=== PATIENT | female | born 1945 | race Caucasian/White ===

== ENCOUNTER → 2020-08-29 14:36 | Outpatient (BNVA) | payer MEDICARE, SELFPAY | PROVIDERS: PCP Internal Medicine; Visit Provider Internal Medicine Cardiovascular Disease | DX: I25.10 Atherosclerotic heart disease of native coronary artery without angina pectoris (principal); I10 Essential (primary) hypertension | CPT/HCPCS: 99212 ==

== ENCOUNTER 2021-09-17 15:21 | Inpatient (IN) | payer MEDICARE, SELFPAY ==
--- NOTE | ~2021-09-17 | FL_ITS ---
EXAMINATION: XR FLUOROSCOPY WITH IMAGES CLINICAL INFORMATION: Right hip fracture COMPARISON: Radiographs right hip 09/17/2021 TECHNIQUE: Fluoroscopy performed by Dr. Moisés Aleman. Fluoroscopy time: 0.6 minutes DAP: 0.474 Gycm2 Images: 4 FINDINGS: Intertrochanteric fracture is reduced with gamma canal and intramedullary [place]. The hardware is intact. Fracture fragments are in near-anatomic alignment. No dislocation or destructive process. FL/FL guidance in OR IMPRESSION: Status post reduction. Hardware intact.
--- NOTE | ~2021-09-17 | XR_ITS ---
EXAMINATION: XR HIP, RIGHT CLINICAL INFORMATION: Fall. Pain. COMPARISON: None TECHNIQUE: Frontal view of pelvis. Two views of the right hip. FINDINGS: Oblique mildly displaced intratrochanteric fracture of the right proximal femur. No fracture of the pelvis. Left hip is intact. XR/XR hip RT w [id number] IMPRESSION: Intratrochanteric fracture right hip.
--- NOTE | ~2021-09-17 | XR_ITS ---
EXAMINATION: XR CHEST CLINICAL INFORMATION: Fall. COMPARISON: None TECHNIQUE: Frontal view of the chest was obtained. 4:40 PM FINDINGS: No significant abnormality is noted involving the heart, lungs, mediastinum, bony thorax or soft tissues. XR/XR chest 1V IMPRESSION: Unremarkable examination.
--- NOTE | 2021-09-17 15:37 | ED.FALL ---
HPI - Fall General Chief Complaint: Fall Stated Complaint: R LEG/HIP INJURY Time Seen by Provider: 09/17/21 15:36 Source: patient and EMS Mode of arrival: EMS Limitations: no limitations History of Present Illness HPI Narrative: 75-year-old female with history of CAD, HTN, HLD, angina who presents to the ER via EMS from home with right hip pain after she fell. Patient reports she was moving a heavy dresser with a large Andrzej on the top and it was top heavy when she went to move it it came down almost on top of her and she fell onto her right hip. She had intense pain immediately and was unable to get up. She denies hitting her head or losing consciousness. Her daughter heard her fall and ran upstairs intended to her. EMS was called. Patient was in excruciating pain and shaking. She was given intravenous fentanyl 100 mcg and brought to the ER for further evaluation. MD complaint: fall Onset (ago): minute(s) Fall from: standing Fall witnessed: no Place fall occurred: home Loss of consciousness: none Prolonged down time: no Symptoms prior to fall: none Context: tripped/slipped Location of injury: pelvis ( Right hip) Severity: severe Severity scale (1-10): 10 Quality: sharp and aching Associated symptoms (after fall): denies Related Data Home Medications Medication Instructions Recorded Confirmed aspirin 81 mg tablet,delayed 81 mg PO DAILY 08/29/20 08/29/20 release (Adult Low Dose Aspirin) calcium 600 mg-D3 800 unit-mag11 1 tab PO BEDTIME 08/29/20 08/29/20 50 hw-minz-uwihpw-gabi-s.borat tablet (Caltrate 600-D Plus Minerals) lisinopril 20 1 tab PO DAILY 08/29/20 08/29/20 mg-hydrochlorothiazide 12.5 mg tablet amlodipine 5 mg tablet 1 tab PO DAILY 09/17/21 atorvastatin 40 mg tablet 1 tab PO DAILY 09/17/21 famotidine 40 mg tablet 1 tab PO DAILY 09/17/21 Previous Rx's Medication Instructions Recorded metoprolol succinate 50 mg 50 mg PO DAILY #90 cap 10/04/20 tablet,extended release 24 hr isosorbide mononitrate 60 mg 90 mg PO DAILY #135 cap 01/09/21 tablet,extended release 24 hr Allergies Allergy/AdvReac Type Severity Reaction Status Date / Time codeine [CODEINE] Allergy Intermediate RASH Verified 09/17/21 16:08 Review of Systems Review of Systems: Constitutional: No Fever, No Chills ENT/Mouth: No sore throat, No Rhinorrhea Cardiovascular: No Chest Pain, No SOB Respiratory: No Cough, No Sputum Gastrointestinal: No Nausea, No Vomiting, No Diarrhea, No abdominal Pain Genitourinary: No Dysuria, No Urinary Frequency, No Hematuria Musculoskeletal: + joint pain, No Myalgias Skin: No Skin Lesions, No rash Neuro: No Weakness, No Numbness, No Dizziness, No Headache Psych: + Anxiety/Panic, No Depression Heme/Lymph: No Bruising, No Lymphadenopathy Endocrine: No Polyuria, No Polydipsia [facility] Past Medical History Medical History (Updated 09/17/21 @ 19:24 by KATELYNN Yarbrough) CAD (coronary artery disease) HTN (hypertension) Hyperlipidemia Surgical History (Updated 08/29/20 @ 14:30 by PEDRO PABLO Jo) Hx of cardiac cath (~2013) Hx of cholecystectomy Hx of hysterectomy Family History Family History (Updated 08/29/20 @ 14:32 by PEDRO PABLO Jo) Father Cancer Mother CHF (congestive heart failure) Social History Social History (Updated 08/29/20 @ 15:03 by PEDRO PABLO Jo) Advance Directives: No Advance Directives Information Provided: Yes Physical Exam Vital Signs: Vital Signs: Last Vital Signs Temp 98 F 09/17/21 15:48 Pulse 92 09/17/21 18:13 Resp 18 09/17/21 18:13 BP 116/53 L 09/17/21 18:13 Pulse Ox 97 09/17/21 18:13 BMI result Body Mass Index 36.0 Appearance: Alert. Oriented X3. Appears uncomfortable, restless and stroking her lateral right thigh. Eyes: Pupils equal, round and reactive to light. ENT: Pharynx normal. Neck: Normal inspection. Neck supple. CVS: Normal heart rate and rhythm. Pulses normal. Respiratory: No respiratory distress. Breath sounds normal. Abdomen: Obese, soft and nontender. +BS x4 Skin: Skin warm and dry. Normal skin color. Normal skin turgor. No rashes. Extremities: right leg is slightly shortened and externally rotated. Tender throughout the entire right hip and lateral proximal femur. neurovascularly intact distally leg warm and well perfused. Neuro: Oriented X 3. No motor deficit. No sensory deficit. Course Course Course Narrative: 75-year-old female With history of HTN, CAD, HLD, angina who presents to the ER with a mechanical fall today at home falling onto her right side, presenting with severe hip pain. Exam is concerning for a hip fracture. Her pain is improved after some IV fentanyl given by EMS. Will give additional IV Dilaudid and her who obtain x-ray of the hip. Lab workup, EKG, COVID test and med rec ordered in anticipation of admission. Reevaluation(s) Reevaluation #1: 5:55pm: x-ray showing a right-sided intertrochanteric hip fracture. Orthopedics consulted who is recommending medicine admission given age Discussed results of the x-ray with the patient and daughter at the bedside. Patient needs to urinate, will place Ingram catheter. Patient also reporting some neck tightness which is usually how her angina is started. She is asking to have nitro ready in case it moved to her chest. EKG and troponin are pending. She currently denies any chest pain. She reports severe pain in the right hip with minimal improvement after IV Dilaudid. Will repeat does of IV Dilaudid and reassess. Reevaluation #2: 7:05 pm - Troponin is less than 3.5. EKG without any ischemic changes. Pain improved after IV Dilaudid. Urinalysis returned with evidence of infection, +LE, +WBC 15-29. Patient denies any dysuria, urinary frequency urgency. But she does report some new lower back discomfort. She has no fevers or leukocytosis. No evidence of sepsis at this time. Will treat with IV Rocephin for now until urine culture is performed. Plan to admit to the hospitalist service with ortho consult. Ortho recommending NPO status after midnight for possible surgical intervention tomorrow. Consultations Consultation #1: Orthopedics - Rupinder Marley PA-C MDM - Fall Medical Records Attestation: I reviewed the patient's medical records. Lab Data Attestation: I reviewed the patient's lab results. Result diagrams: 09/17/21 16:22 09/17/21 16:22 Labs: Lab Results 01/16/22 01/16/22 01/16/22 Range/Units 16:22 16:22 16:22 WBC 10.6 (4.8-10.8) X10*3/uL RBC 4.22 (4.20-5.50) X10*6/uL Hgb 12.5 (12.0-16.0) g/dl Hct 37.6 (37.0-47.0) % MCV 89.1 (80.0-98.0) fL MCH 29.6 (27.0-33.0) pg MCHC 33.2 (31.0-35.0) g/dl RDW 12.6 (11.0-16.0) % Plt Count 282 (160-400) X10*3/uL MPV 9.1 L (9.4-12.3) fL Immature Gran % (Auto) 0.6 H (0.0-0.4) % Neut % (Auto) 76.8 H (45-73) % Lymph % (Auto) 13.7 L (20-40) % [place] % (Auto) 8.0 (2-11) % Eos % (Auto) 0.5 (0-4) % Baso % (Auto) 0.4 (0-2) % Lymph # (Auto) 1.5 (1.2-4.9) X10*3/uL [place] # (Auto) 0.9 (0.1-1.2) X10*3/uL Eos # (Auto) 0.1 (0.0-0.4) X10*3/uL Baso # (Auto) 0.0 (0.0-0.2) X10*3/uL Abs Immat Gran (auto) 0.06 H (0.00-0.03) X10*3/uL Absolute Neuts (auto) 8.2 (2.0-8.3) x10*3/uL Absolute Nucleated RBC 0.000 (0.0-0.012) X10*3/uL Nucleated RBC % (auto) 0.0 (0.0-0.2) /100WBC PT 12.1 (9.9-13.0) SEC INR 1.1 (0.9-1.1) APTT 31.9 (24.1-38.0) SEC Sodium 138 (135-145) mmol/L Potassium 4.3 (3.3-5.1) mmol/L Chloride 105 (96-108) mmol/L Carbon Dioxide 23 (22-29) mmol/L Anion Gap 14 (12-20) BUN 22 H (9-16) mg/dL Creatinine 0.90 (0.5-1.4) mg/dL Estim Creat Clear Calc 67.1 Estimated GFR > 60 Random Glucose 119 H (60-115) mg/dL Calcium 9.3 (8.4-10.2) mg/dL Magnesium 2.2 (1.6-2.6) mg/dL Total Bilirubin 0.4 (0.0-1.0) mg/dL Direct Bilirubin 0.2 (0.0-0.5) mg/dL AST 25 (5-31) U/L ALT 24 (0-31) U/L Alkaline Phosphatase 91 (39-117) U/L Troponin I High Sens (<3.5-17.0) ng/L Total Protein 6.5 (6.5-8.0) g/dL Albumin 3.8 (3.5-5.0) g/dL Urine Color Urine Appearance Urine pH (5.0-8.0) Ur Specific [place] (1.005-1.025) Urine Protein (NEG-TRACE) MG/DL Urine Glucose (UA) (NEG) MG/DL Urine Ketones (NEG) MG/DL Urine Blood (NEG) Urine Nitrite (NEG) Ur Leukocyte Esterase (NEG) Urine RBC (0) /HPF Urine WBC (0-4) /HPF Ur Squamous Epith Cells /LPF Urine Bacteria /LPF COVID-19 (FABIOLA) (Negative) COVID-19 Clin Com 09/17/21 09/17/21 09/17/21 Range/Units 16:22 16:22 18:43 WBC (4.8-10.8) X10*3/uL RBC (4.20-5.50) X10*6/uL Hgb (12.0-16.0) g/dl Hct (37.0-47.0) % MCV (80.0-98.0) fL MCH (27.0-33.0) pg MCHC (31.0-35.0) g/dl RDW (11.0-16.0) % Plt Count (160-400) X10*3/uL MPV (9.4-12.3) fL Immature Gran % (Auto) (0.0-0.4) % Neut % (Auto) (45-73) % Lymph % (Auto) (20-40) % [place] % (Auto) (2-11) % Eos % (Auto) (0-4) % Baso % (Auto) (0-2) % Lymph # (Auto) (1.2-4.9) X10*3/uL [place] # (Auto) (0.1-1.2) X10*3/uL Eos # (Auto) (0.0-0.4) X10*3/uL Baso # (Auto) (0.0-0.2) X10*3/uL Abs Immat Gran (auto) (0.00-0.03) X10*3/uL Absolute Neuts (auto) (2.0-8.3) x10*3/uL Absolute Nucleated RBC (0.0-0.012) X10*3/uL Nucleated RBC % (auto) (0.0-0.2) /100WBC PT (9.9-13.0) SEC INR (0.9-1.1) APTT (24.1-38.0) SEC Sodium (135-145) mmol/L Potassium (3.3-5.1) mmol/L Chloride (96-108) mmol/L Carbon Dioxide (22-29) mmol/L Anion Gap (12-20) BUN (9-16) mg/dL Creatinine (0.5-1.4) mg/dL Estim Creat Clear Calc Estimated GFR Random Glucose (60-115) mg/dL Calcium (8.4-10.2) mg/dL Magnesium (1.6-2.6) mg/dL Total Bilirubin (0.0-1.0) mg/dL Direct Bilirubin (0.0-0.5) mg/dL AST (5-31) U/L ALT (0-31) U/L Alkaline Phosphatase (39-117) U/L Troponin I High Sens < 3.5 (<3.5-17.0) ng/L Total Protein (6.5-8.0) g/dL Albumin (3.5-5.0) g/dL Urine Color YELLOW Urine Appearance CLEAR Urine pH 6.0 (5.0-8.0) Ur Specific [place] 1.025 (1.005-1.025) Urine Protein NEG (NEG-TRACE) MG/DL Urine Glucose (UA) NEG (NEG) MG/DL Urine Ketones NEG (NEG) MG/DL Urine Blood NEG (NEG) Urine Nitrite POS H (NEG) Ur Leukocyte Esterase 1+ H (NEG) Urine RBC 5-9 H (0) /HPF Urine WBC 15-29 H (0-4) /HPF Ur Squamous Epith Cells TRACE /LPF Urine Bacteria 3+ /LPF COVID-19 (FABIOLA) Negative (Negative) COVID-19 Clin Com See Note ECG Data Attestation: I personally reviewed and interpreted this ECG as follows: ECG interpretation date: 09/17/21 ECG interpretation time: 19:23 Interpretation: Normal sinus rhythm, heart rate 90 beats per minute, normal [place] interval, normal QTC, no ST segment elevations or depressions. Critical Care Time Critical Care Time Critical Care Time: Yes Total Critical Care Time: 41 Attestation: I have personally provided critical care time exclusive of time spent on separately billable procedures. Time includes review of lab data, radiology results, discussion with consultants/hospitalist, frequent bedside reassessments due to requiring multiple doses of IV narcotics and monitoring for potential decompensation. Intervention performed as documented. Discharge Plan Discharge Clinical Impression: Closed fracture of right hip, Acute UTI Patient Disposition: Admitted As Inpatient
--- NOTE | 2021-09-17 15:38 | ECG_ITS ---
Test Reason : fall Blood Pressure : / mmHG Vent. Rate : 090 BPM Atrial Rate : 090 BPM P-R Int : 180 ms QRS Dur : 088 ms QT Int : 366 ms P-R-T Axes : 061 -05 017 degrees QTc Int : 447 ms Normal sinus rhythm Possible Inferior infarct (cited on or before 23-JUN-2007) Anterior infarct , age undetermined Abnormal ECG When compared with ECG of 23-JUN-2007 15:30, No significant change was found Referred By: Shana Harden Electronically Signed By:Olayinka Colunga
[2021-09-17 15:48] VITALS: BP 133/68; BP 170/94; PULSE 80; RESP 18; TEMP 36.6; O2SAT 100; O2SAT 97; BMI 36.0
[2021-09-17] MEDS: HYDROmorphone HCl 0.5 MG/0.5 ML SYRINGE IVPUSH (16:09)
[2021-09-17 16:27] LABS: MANUAL DIFF FLAG NO
[2021-09-17 16:31] LABS: Basophils Percent Auto 0.4 % (0-2); Eosinophils Absolute Auto 0.1 X10*3/uL (0.0-0.4); Eosinophils Percent Auto 0.5 % (0-4); Hematocrit 37.6 % (37.0-47.0); Hemoglobin 12.5 g/dl (12.0-16.0); Imm Gran Abs Auto 0.06 X10*3/uL (0.00-0.03); Imm Gran Pct Auto 0.6 % (0.0-0.4); Lymphocytes Absolute Auto 1.5 X10*3/uL (1.2-4.9); Lymphocytes Percent Auto 13.7 % (20-40); Mean Corpuscular HGB Conc 33.2 g/dl (31.0-35.0); Mean Corpuscular Hemoglobin 29.6 pg (27.0-33.0); Mean Corpuscular Volume 89.1 fL (80.0-98.0); Mean Platelet Volume 9.1 fL (9.4-12.3); Monocytes Absolute Auto 0.9 X10*3/uL (0.1-1.2); Neutrophils Absolute Auto 8.2 x10*3/uL (2.0-8.3); Neutrophils Percent Auto 76.8 % (45-73); Platelet Count 282 X10*3/uL (160-400); Red Blood Count 4.22 X10*6/uL (4.20-5.50); Red Cell Distribution Width 12.6 % (11.0-16.0); White Blood Count 10.6 X10*3/uL (4.8-10.8)
[2021-09-17 16:37] LABS: INTERNATIONAL NORM RATIO 1.1 (0.9-1.1); Prothrombin Time 12.1 SEC (9.9-13.0)
[2021-09-17 16:39] LABS: Partial Thromboplastin Time 31.9 SEC (24.1-38.0)
[2021-09-17 16:47] LABS: COVID-19 Test Negative (Negative)
[2021-09-17 16:54] LABS: Alanine Aminotransferase 24 U/L (0-31); Albumin Level 3.8 g/dL (3.5-5.0); Alkaline Phosphatase 91 U/L (39-117); Anion Gap 14 (12-20); Aspartate Amino Transferase 25 U/L (5-31); Bilirubin Direct 0.2 mg/dL (0.0-0.5); Bilirubin Total 0.4 mg/dL (0.0-1.0); Blood Urea Nitrogen 22 mg/dL (9-16); Calcium 9.3 mg/dL (8.4-10.2); Carbon Dioxide 23 mmol/L (22-29); Chloride 105 mmol/L (96-108); Creatinine Clr Calc Pharmacy 67.1; Estimated Glomerular Filt Rate > 60; Glucose Random 119 mg/dL (60-115); Magnesium 2.2 mg/dL (1.6-2.6); Potassium 4.3 mmol/L (3.3-5.1); Sodium 138 mmol/L (135-145); Total Protein 6.5 g/dL (6.5-8.0)
[2021-09-17 18:10] LABS: Troponin-I High Sensitivity < 3.5 ng/L (<3.5-17.0)
[2021-09-17] MEDS: HYDROmorphone HCl 1 MG/ML SYRINGE IVPUSH (18:11)
[2021-09-17 18:13] VITALS: BP 116/53; PULSE 92; RESP 18; O2SAT 97
[2021-09-17 18:54] LABS: Appearance Urine CLEAR; Color Urine YELLOW; Glucose Urine UA NEG (NEG); Leukocyte Esterase Urine 1+ (NEG); Nitrite Urine POS (NEG); Specific Gravity - Urine 1.025 (1.005-1.025); UACC Culture Trigger YES; Urine Blood NEG (NEG); Urine Ketones NEG (NEG); Urine Protein NEG (NEG-TRACE)
[2021-09-17 19:07] LABS: Bacteria Urine 3+ /LPF; Squamous Epithelial Cell Urine TRACE /LPF
[2021-09-17 20:11] VITALS: BP 138/78; PULSE 93; RESP 16; TEMP 36.9; O2SAT 95
--- NOTE | 2021-09-17 20:43 | PHA.MEDREC ---
Pharmacy Consult ? Medication Reconciliation Pharmacy has completed the medication reconciliation.
[2021-09-17 20:50] LABS: Lactic Acid 1.3 mmol/L (0.5-2.0)
[2021-09-17] MEDS: cefTRIAXone sodium 1 GM in 0.9 % Sodium Chloride 50 ML IV (20:53)
--- NOTE | 2021-09-17 21:23 | PM.IMHP ---
History of Present Illness Date of Service: 09/17/21 Chief Complaint: Hip fracture 75-year-old female with past medical history of CAD, hypertension, hyperlipidemia who presents the hospital after injuring her right hip found to have right hip fracture. Patient reports that she was moving a dresser in her room when the dresser fell on her, she fell to the floor and hurt her right hip. Patient immediately felt significant pain and called EMS and was brought into the hospital. Patient reports that she was in her regular state of health with no complaints including no chest pain, no shortness of breath, no headache or change in vision, no abdominal pain nausea or vomiting, no diarrhea constipation, no urinary symptoms including no urgency or frequency,and no lower extremity edema. On arrival to the ED patient hemodynamically was stable with no significant abnormal vitals labs remarkable for positive UA with leukocyte Estrace and WBC as well as nitrites, COVID-19 negative hip pelvic x-ray showed intratrochanteric fracture of the right hip Review of Systems Review of Systems: Yes all other systems are reviewed and are negative [facility] Medical History CAD (coronary artery disease) HTN (hypertension) Hyperlipidemia Family History Father Cancer Mother CHF (congestive heart failure) Surgical History Hx of cardiac cath (~2013) Hx of cholecystectomy Hx of hysterectomy Social History Patient Tobacco Use Status: Never used Tobacco Smoked in Last 30 Days: No Use of substances other than those prescribed or required for medical reasons: No Advance Directives: No Advance Directives Information Provided: Yes Meds Allergies Allergy/AdvReac Type Severity Reaction Status Date / Time codeine [CODEINE] Allergy Intermediate RASH Verified 09/17/21 16:08 Active Medications: Current Medications Pharmacy Consult (Consult Rx Perform Med Rec) 1 each MISCELLANE ONCE PRN PRN Reason: Consult order Home Medications Medication Instructions Recorded Confirmed Last Taken Type aspirin 81 mg tablet,delayed 81 mg PO DAILY 08/29/20 09/17/21 09/16/21 History release (Adult Low Dose Aspirin) calcium 600 mg-D3 800 unit-mag11 1 tab PO DAILY 08/29/20 09/17/21 09/17/21 History 50 mn-tmct-mhpbqy-gabi-s.borat tablet (Caltrate 600-D Plus Minerals) lisinopril 20 1 tab PO DAILY 08/29/20 09/17/21 09/17/21 History mg-hydrochlorothiazide 12.5 mg tablet amlodipine 5 mg tablet 1 tab PO DAILY 09/17/21 09/17/21 09/17/21 History famotidine 40 mg tablet 1 tab PO DAILY 09/17/21 09/17/21 09/17/21 History simvastatin 20 mg tablet 1 tab PO BEDTIME 09/17/21 09/17/21 09/16/21 History Physical Exam Vital Signs and Narrative: Vital Signs: Last Vital Signs Temp 98.5 F 09/17/21 20:11 Pulse 93 09/17/21 20:11 Resp 16 09/17/21 20:11 BP 138/78 09/17/21 20:11 Pulse Ox 95 09/17/21 20:11 BMI result Body Mass Index 36.0 Const: General: cooperative and no acute distress Orientation/consciousness: patient oriented x3 Eyes: General: appearance normal, both eyes and all related structures Pupils: Equal, round and reactive pupils present Resp: Effort & Inspection: normal respiratory effort Auscultation: clear to auscultation bilaterally Cardio: Rate: regular rate Rhythm: regular rhythm GI: Palpation (GI): Soft to palpation Auscultation: normal bowel sounds Skin: General skin exam: no rashes or lesions noted Neuro: General: patient oriented x3 Cranial nerves: Yes Equal, round and reactive pupils present Cognition (Neuro): normal cognition Extrem: Other: right hip bruising, externally rotated and severely tender and edmatous General: Yes no pedal edema Results Labs CBC and Chem 7: 09/17/21 16:22 09/17/21 16:22 Labs: Laboratory Results - last 24 hr 09/17/21 09/17/21 09/17/21 16: 16: 16:22 MCV 89.1 MCH 29.6 MCHC 33.2 RDW 12.6 Plt Count 282 MPV 9.1 L Immature Gran % (Auto) 0.6 H Neut % (Auto) 76.8 H Lymph % (Auto) 13.7 L [place] % (Auto) 8.0 Eos % (Auto) 0.5 Baso % (Auto) 0.4 Lymph # (Auto) 1.5 [place] # (Auto) 0.9 Eos # (Auto) 0.1 Baso # (Auto) 0.0 Abs Immat Gran (auto) 0.06 H Absolute Neuts (auto) 8.2 Absolute Nucleated RBC 0.000 Nucleated RBC % (auto) 0.0 PT 12.1 INR 1.1 APTT 31.9 Anion Gap 14 Estim Creat Clear Calc 67.1 Estimated GFR > 60 Random Glucose 119 H Lactic Acid Calcium 9.3 Magnesium 2.2 Total Bilirubin 0.4 Direct Bilirubin 0.2 AST 25 ALT 24 Alkaline Phosphatase 91 Troponin I High Sens Total Protein 6.5 Albumin 3.8 Urine Color Urine Appearance Urine pH Ur Specific [place] Urine Protein Urine Glucose (UA) Urine Ketones Urine Blood Urine Nitrite Ur Leukocyte Esterase Urine RBC Urine WBC Ur Squamous Epith Cells Urine Bacteria COVID-19 (FABIOLA) COVID-19 Clin Com 09/17/21 09/17/21 09/17/21 16:22 16:22 18:43 MCV MCH MCHC RDW Plt Count MPV Immature Gran % (Auto) Neut % (Auto) Lymph % (Auto) [place] % (Auto) Eos % (Auto) Baso % (Auto) Lymph # (Auto) [place] # (Auto) Eos # (Auto) Baso # (Auto) Abs Immat Gran (auto) Absolute Neuts (auto) Absolute Nucleated RBC Nucleated RBC % (auto) PT INR APTT Anion Gap Estim Creat Clear Calc Estimated GFR Random Glucose Lactic Acid Calcium Magnesium Total Bilirubin Direct Bilirubin AST ALT Alkaline Phosphatase Troponin I High Sens < 3.5 Total Protein Albumin Urine Color YELLOW Urine Appearance CLEAR Urine pH 6.0 Ur Specific [place] 1.025 Urine Protein NEG Urine Glucose (UA) NEG Urine Ketones NEG Urine Blood NEG Urine Nitrite POS H Ur Leukocyte Esterase 1+ H Urine RBC 5-9 H Urine WBC 15-29 H Ur Squamous Epith Cells TRACE Urine Bacteria 3+ COVID-19 (FABIOLA) Negative COVID-19 Clin Com See Note 09/17/21 20:32 MCV MCH MCHC RDW Plt Count MPV Immature Gran % (Auto) Neut % (Auto) Lymph % (Auto) [place] % (Auto) Eos % (Auto) Baso % (Auto) Lymph # (Auto) [place] # (Auto) Eos # (Auto) Baso # (Auto) Abs Immat Gran (auto) Absolute Neuts (auto) Absolute Nucleated RBC Nucleated RBC % (auto) PT INR APTT Anion Gap Estim Creat Clear Calc Estimated GFR Random Glucose Lactic Acid 1.3 Calcium Magnesium Total Bilirubin Direct Bilirubin AST ALT Alkaline Phosphatase Troponin I High Sens Total Protein Albumin Urine Color Urine Appearance Urine pH Ur Specific [place] Urine Protein Urine Glucose (UA) Urine Ketones Urine Blood Urine Nitrite Ur Leukocyte Esterase Urine RBC Urine WBC Ur Squamous Epith Cells Urine Bacteria COVID-19 (FABIOLA) COVID-19 Clin Com Imaging Radiologist's Impressions: Impressions Chest X-Ray 09/17/21 16:48 IMPRESSION: Unremarkable examination. Hip/Pelvis X-Ray 09/17/21 16:48 IMPRESSION: Intratrochanteric fracture right hip. Assessment and Plan (1) Closed fracture of right hip: Qualifiers: Encounter type: initial encounter Qualified Code(s): S72.001A - Fracture of unspecified part of neck of right femur, initial encounter for closed fracture Status: Acute (2) Acute UTI: Status: Acute 75-year-old female with past medical history of CAD as well as hypertension presents to the hospital after a fall found to have right hip fracture # right hip fracture - secondary to mechanical fall - orthopedic service is consulted - pain controlled # acute UTI - asymptomatic - but given surgical intervention will treat with IV antibiotics - follow cultures # history of coronary artery disease - continue metoprolol # hypertension - stable, will continue home medications # hyperlipidemia - will continue statin DVT prophylaxis: SCDs in anticipation of surgical Quality Stroke Does the patient have a stroke diagnosis?: No VTE Prior VTE?: No VTE Risk Level:: Medical - moderate - high VTE Device Contraindication: Treatment Not Indicated VTE Drug Contraindication: N/A - Med Ordered
[2021-09-17] MEDS: Morphine Sulfate 4 MG/ML CARTRIDGE IVPUSH (21:34)
[2021-09-18] VITALS (15 sets, daily range): BP systolic 111–129; BP diastolic 62–80; PULSE 80–104; RESP 11–18; TEMP 36.3–37.6; O2SAT 90–100
[2021-09-18] MEDS: Morphine Sulfate 4 MG/ML CARTRIDGE IVPUSH (01:43)
[2021-09-18] MEDS: HYDROmorphone HCl 1 MG/ML SYRINGE IVPUSH ×5 (03:43→22:22)
--- NOTE | 2021-09-18 04:40 | PC.NURSE ---
pt a&o, no sob or chest pain. pt reposition for comfort. Medicated per Oct. CMS pt lower extremities.
--- NOTE | 2021-09-18 04:42 | PC.NURSE ---
pt is Npo at this time.
[2021-09-18] MEDS: Isosorbide Mononitrate 60 MG TAB.ER.24H PO (08:21)
--- NOTE | 2021-09-18 08:59 | PC.NURSE ---
Report given to JASON Hollingsworth in OR (short stay). Preparing for right hip surgery.
--- NOTE | 2021-09-18 09:04 | P.CONOP_ITS ---
History of Present Illness HPI Consult date: 09/18/21 <Aretha Marley PA-C - Last Filed: 09/18/21 09:11> Chief complaint: Hip Fracture <DAIVD Lopes Last Filed: 09/18/21 09:11> Narrative: Ms. hernandez is a 75 yo female who presented to the ED after sustaining a fall and landing on the right hip. She states she was trying to move her dresser when she lost balance and fell. She was unable to get up due to pain. She lives with her daughter and family, she was able to call EMS who transported her to the ED. Xrays in the ED showed a mildly displaced intertrochanteric fracture of the right femur. She was admitted to the medical service and orthopedics was consulted. <Aretha Marley PA-C Last Filed: 09/18/21 09:11> Review of Systems Review of Systems: Yes all other systems are reviewed and are negative <Aretha Marley PA-C Last Filed: 09/18/21 09:11> [facility] Past Medical History Medical History: Medical History CAD (coronary artery disease) HTN (hypertension) Hyperlipidemia <DAVID Lopes Last Filed: 09/18/21 09:11> Family History Family History: Family History Father Cancer Mother CHF (congestive heart failure) <DAVID Lopes Last Filed: 09/18/21 09:11> Surgical History Surgical History: Surgical History Hx of cardiac cath (~2013) Hx of cholecystectomy Hx of hysterectomy <DAVID Lopes Last Filed: 09/18/21 09:11> Social History Social History: Social History Patient Tobacco Use Status: Never used Tobacco service: No Current occupational status: retired <DAVID Lopes Last Filed: 09/18/21 09:11> Meds Allergies/Adverse reactions: Allergies Allergy/AdvReac Type Severity Reaction Status Date / Time codeine [CODEINE] Allergy Intermediate RASH Verified 09/17/21 16:08 <Aretha Marley PA-C - Last Filed: 09/18/21 09:11> Active Medications: Current Medications Hydromorphone HCl (Hydromorphone Hcl 1 Mg/Ml Syringe) 1 mg IVPUSH Q4H PRN; Protocol PRN Reason: Pain, Severe (Pain Scale 7-10) Last Admin: 09/18/21 08:21 Dose: 1 mg Documented by: Isosorbide Mononitrate (Isosorbide Mononitrate 60 Mg Tab.Er.24h) 60 mg PO DAILY [facility]; Protocol Last Admin: 09/18/21 08:21 Dose: 60 mg Documented by: Pharmacy Consult (Consult Rx Perform Med Rec) 1 each MISCELLANE ONCE PRN PRN Reason: Consult order <Aretha Marley PA-C - Last Filed: 09/18/21 09:11> Home medications: Home Medications Medication Instructions Recorded Confirmed Last Taken Type aspirin 81 mg tablet,delayed 81 mg PO DAILY 08/29/20 09/17/21 09/16/21 History release (Adult Low Dose Aspirin) calcium 600 mg-D3 800 unit-mag11 1 tab PO DAILY 08/29/20 09/17/21 09/17/21 History 50 bt-qezg-hzztag-gabi-s.borat tablet (Caltrate 600-D Plus Minerals) lisinopril 20 1 tab PO DAILY 08/29/20 09/17/21 09/17/21 History mg-hydrochlorothiazide 12.5 mg tablet amlodipine 5 mg tablet 1 tab PO DAILY 09/17/21 09/17/21 09/17/21 History famotidine 40 mg tablet 1 tab PO DAILY 09/17/21 09/17/21 09/17/21 History simvastatin 20 mg tablet 1 tab PO BEDTIME 09/17/21 09/17/21 09/16/21 History <Aretha Marley PA-C - Last Filed: 09/18/21 09:11> Physical Exam Vital Signs: Vital Signs: Last Vital Signs Temp 98.7 F 09/18/21 03:48 Pulse 80 09/18/21 07:07 Resp 18 09/18/21 08:21 BP 116/65 09/18/21 07:07 Pulse Ox 100 09/18/21 07:07 BMI result Body Mass Index 36.0 <Aretha CarlKATELYNN roldanHong - Last Filed: 09/18/21 09:11> Const: General: cooperative, healthy appearing, comfortable, no acute distress, well developed and alert <ElmerSergKATELYNN PalmaHong - Last Filed: 09/18/21 09:11> Orientation/consciousness: patient oriented x3 <ElmerSergKATELYNN PalmaHong - Last Filed: 09/18/21 09:11> HENMT: Head: Yes normal to inspection, Yes normocephalic and Yes atraumatic <ChikiKATELYNN PalmaHong - Last Filed: 09/18/21 09:11> Eyes: General: appearance normal, both eyes and all related structures <ElmerSergKATELYNN PalmaHong - Last Filed: 09/18/21 09:11> Neck: Neck: Yes normal visual inspection and Yes no lymphadenopathy <ElmerChayito BryanKATELYNN PalmaHong - Last Filed: 09/18/21 09:11> Resp: Effort & Inspection: normal respiratory effort and able to speak in complete sentences <ElmerSergKATELYNN PalmaHong - Last Filed: 09/18/21 09:11> Cardio: Rate: regular rate <ElmerSergKATELYNN PalmaHong Last Filed: 09/18/21 09:11> Peripheral pulses: Peripheral pulses 2+ throughout <ElmerChayitoKATELYNN HallHong - Last Filed: 09/18/21 09:11> GI: Inspection: Yes normal to inspection <ElmerSergKATELYNN PalmaHong - Last Filed: 09/18/21 09:11> Palpation (GI): Soft to palpation <KATELYNN LopesChayitoConi - Last Filed: 09/18/21 09:11> Skin: General skin exam: no rashes or lesions noted <KATELYNN LopesHong - Last Filed: 09/18/21 09:11> Neuro: General: patient oriented x3 <KATELYNN LopesHong - Last Filed: 09/18/21 09:11> Extrem: Other: Right hip skin intact, there is a bruise over the greater troch. Leg is shortened and ER, pain with Log roll and unable to SLR. NVI. <DAVID Lopes Last Filed: 09/18/21 09:11> Psych: Appearance: grossly normal <DAVID Lopes Last Filed: 09/18/21 09:11> Mental Status: mental status grossly normal <DAVID Lopes Last Filed: 09/18/21 09:11> Results Labs Result Diagrams: : 09/17/21 16:22 09/17/21 16:22 <DAVID Lopes Last Filed: 09/18/21 09:11> Labs: Abnormal lab results 09/17/21 09/17/21 09/17/21 Range/Units 16: 16: 18:43 MPV 9.1 L (9.4-12.3) fL Immature Gran % (Auto) 0.6 H (0.0-0.4) % Neut % (Auto) 76.8 H (45-73) % Lymph % (Auto) 13.7 L (20-40) % Abs Immat Gran (auto) 0.06 H (0.00-0.03) X10*3/uL BUN 22 H (9-16) mg/dL Random Glucose 119 H (60-115) mg/dL Urine Nitrite POS H (NEG) Ur Leukocyte Esterase 1+ H (NEG) Urine RBC 5-9 H (0) /HPF Urine WBC 15-29 H (0-4) /HPF H & H 09/17/21 Range/Units 16:22 Hgb 12.5 (12.0-16.0) g/dl Hct 37.6 (37.0-47.0) % Coagulation 09/17/21 Range/Units 16: INR 1.1 (0.9-1.1) All other labs normal. <DAVID Lopes Last Filed: 09/18/21 09:11> Assessment and Plan (1) Closed fracture of right hip: Qualifiers: Encounter type: initial encounter Qualified Code(s): S72.001A - Fracture of unspecified part of neck of right femur, initial encounter for closed fracture <Aretha Marley PA-C - Last Filed: 09/18/21 09:11> Status: Acute <ElmerChayitoAlicia Marley PA-C - Last Filed: 09/18/21 09:11> I discussed the case with Dr Aleman and explained the extent of the injury to the patient and options available which include surgical intervention. I explained the procedure in detail along with the length of recovery and rehab course. I explained the risk, benefits and alternatives. Risk including, but not limited to infection, blood clots, bleeding, non union or malunion and nerve/tissue damage to surrounding areas. I answered all their ques tions and with their understanding they have consented to move forward with Operative Fixation of the right hip. The patient will be T&S, med clearance obtained and has been NPO after midnight. <Aretha Marley PA-C - Last Filed: 09/18/21 09:11> I discussed the case with Dr Aleman and explained the extent of the injury to the patient and options available which include surgical intervention. I explained the procedure in detail along with the length of recovery and rehab course. I explained the risk, benefits and alternatives. Risk including, but not limited to infection, blood clots, bleeding, non union or malunion and nerve/tissue damage to surrounding areas. I answered all their questions and with their understanding they have consented to move forward with Operative Fixation of the right hip. The patient will be T&S, med clearance obtained and has been NPO after midnight. I evaluated and discussed this case with the patient. I explained her fracture and the treatment options including operative and non operative treatment. I recommended a cephalomedullary nail. I discussed the risks benefits and alternatives including but not limited to the risk of pain, infection, stiffness, need for further surgery as well as potential medical complications such as blood clots, pulmonary embolism and cardiac complications. I expect she will require mcc after surgery and the expected recovery time can be up to 9 months. She expressed understanding and consented to the procedure. <Moisés Aleman MD - Last Filed: 09/18/21 15:57> Procedures Date of Service Date of Service: 09/18/21 <Aretha Marley PA-C - Last Filed: 09/18/21 09:11>
--- NOTE | 2021-09-18 12:16 | HO.ANESPROP2 ---
HPI - Anesthesia Eval Consult details Narrative: 75 F for IM nailing stable Angina , denies any symptoms GERD , PMFSH Active Problems Active Problems: All Active Problems (Updated 09/17/21 @ 19:24 by KATELYNN Yarbrough) Closed fracture of right hip (Acute) Acute UTI (Acute) CAD (coronary artery disease) (Acute) HTN (hypertension) (Acute) Hyperlipidemia (Acute) Past Medical History Medical History CAD (coronary artery disease) HTN (hypertension) Hyperlipidemia Family History Family History Father Cancer Mother CHF (congestive heart failure) Family history of problems with anesthesia: No Surgical History Surgical History Hx of cardiac cath (~2013) Hx of cholecystectomy Hx of hysterectomy History of Problems with Anesthesia: No Social History Social History Patient Tobacco Use Status: Never used Tobacco Smoked in Last 30 Days: No Use of substances other than those prescribed or required for medical reasons: No Are you DNR?: No Advance Directives: No Advance Directives Information Provided: Yes Meds Allergies Allergy/AdvReac Type Severity Reaction Status Date / Time codeine [CODEINE] Allergy Intermediate RASH Verified 09/17/21 16:08 Active Medications: Current Medications Hydromorphone HCl (Hydromorphone Hcl 1 Mg/Ml Syringe) 1 mg IVPUSH Q4H PRN; Protocol PRN Reason: Pain, Severe (Pain Scale 7-10) Last Admin: 09/18/21 08:21 Dose: 1 mg Documented by: Hydromorphone HCl (Hydromorphone Hcl 1 Mg/Ml Syringe) 1 mg IVPUSH ONCE ONE; Protocol Stop: 09/18/21 12:15 Isosorbide Mononitrate (Isosorbide Mononitrate 60 Mg Tab.Er.24h) 60 mg PO DAILY [facility]; Protocol Last Admin: 09/18/21 08:21 Dose: 60 mg Documented by: Pharmacy Consult (Consult Rx Perform Med Rec) 1 each MISCELLANE ONCE PRN PRN Reason: Consult order Home Medications Medication Instructions Recorded Confirmed Last Taken Type aspirin 81 mg tablet,delayed 81 mg PO DAILY 08/29/20 09/17/21 09/16/21 History release (Adult Low Dose Aspirin) calcium 600 mg-D3 800 unit-mag11 1 tab PO DAILY 08/29/20 09/17/21 09/17/21 History 50 kn-tkbp-opocnm-gabi-s.borat tablet (Caltrate 600-D Plus Minerals) lisinopril 20 1 tab PO DAILY 08/29/20 09/17/21 09/17/21 History mg-hydrochlorothiazide 12.5 mg tablet amlodipine 5 mg tablet 1 tab PO DAILY 09/17/21 09/17/21 09/17/21 History famotidine 40 mg tablet 1 tab PO DAILY 09/17/21 09/17/21 09/17/21 History simvastatin 20 mg tablet 1 tab PO BEDTIME 09/17/21 09/17/21 09/16/21 History Exam Exam Date and Time: September 18, 2021 1216 Height,Weight and Vital Signs: Height 5 ft 7 in Weight 104.326 kg Last Vital Signs Temp 98.7 F 09/18/21 03:48 Pulse 80 09/18/21 07:07 Resp 18 09/18/21 08:21 BP 116/65 09/18/21 07:07 Pulse Ox 100 09/18/21 07:07 Pertinent Lab Results Pertinent Lab Results: Laboratory Tests 09/17/21 09/17/21 09/17/21 16:22 16:22 16:22 WBC 10.6 RBC 4.22 Hgb 12.5 Hct 37.6 MCV 89.1 MCH 29.6 MCHC 33.2 RDW 12.6 Plt Count 282 MPV 9.1 L Immature Gran % (Auto) 0.6 H Neut % (Auto) 76.8 H Lymph % (Auto) 13.7 L [place] % (Auto) 8.0 Eos % (Auto) 0.5 Baso % (Auto) 0.4 Lymph # (Auto) 1.5 [place] # (Auto) 0.9 Eos # (Auto) 0.1 Baso # (Auto) 0.0 Abs Immat Gran (auto) 0.06 H Absolute Neuts (auto) 8.2 Absolute Nucleated RBC 0.000 Nucleated RBC % (auto) 0.0 PT 12.1 INR 1.1 APTT 31.9 Sodium 138 Potassium 4.3 Chloride 105 Carbon Dioxide 23 Anion Gap 14 BUN 22 H Creatinine 0.90 Estim Creat Clear Calc 67.1 Estimated GFR > 60 Random Glucose 119 H Lactic Acid Calcium 9.3 Magnesium 2.2 Total Bilirubin 0.4 Direct Bilirubin 0.2 AST 25 ALT 24 Alkaline Phosphatase 91 Troponin I High Sens Total Protein 6.5 Albumin 3.8 Urine Color Urine Appearance Urine pH Ur Specific [place] Urine Protein Urine Glucose (UA) Urine Ketones Urine Blood Urine Nitrite Ur Leukocyte Esterase Urine RBC Urine WBC Ur Squamous Epith Cells Urine Bacteria COVID-19 (FABIOLA) COVID-19 Clin Com Blood Type Antibody Screen 09/17/21 09/17/21 09/17/21 16:22 16:22 18:43 WBC RBC Hgb Hct MCV MCH MCHC RDW Plt Count MPV Immature Gran % (Auto) Neut % (Auto) Lymph % (Auto) [place] % (Auto) Eos % (Auto) Baso % (Auto) Lymph # (Auto) [place] # (Auto) Eos # (Auto) Baso # (Auto) Abs Immat Gran (auto) Absolute Neuts (auto) Absolute Nucleated RBC Nucleated RBC % (auto) PT INR APTT Sodium Potassium Chloride Carbon Dioxide Anion Gap BUN Creatinine Estim Creat Clear Calc Estimated GFR Random Glucose Lactic Acid Calcium Magnesium Total Bilirubin Direct Bilirubin AST ALT Alkaline Phosphatase Troponin I High Sens < 3.5 Total Protein Albumin Urine Color YELLOW Urine Appearance CLEAR Urine pH 6.0 Ur Specific [place] 1.025 Urine Protein NEG Urine Glucose (UA) NEG Urine Ketones NEG Urine Blood NEG Urine Nitrite POS H Ur Leukocyte Esterase 1+ H Urine RBC 5-9 H Urine WBC 15-29 H Ur Squamous Epith Cells TRACE Urine Bacteria 3+ COVID-19 (FABIOLA) Negative COVID-19 Clin Com See Note Blood Type Antibody Screen 09/17/21 09/18/21 20:32 05:56 WBC RBC Hgb Hct MCV MCH MCHC RDW Plt Count MPV Immature Gran % (Auto) Neut % (Auto) Lymph % (Auto) [place] % (Auto) Eos % (Auto) Baso % (Auto) Lymph # (Auto) [place] # (Auto) Eos # (Auto) Baso # (Auto) Abs Immat Gran (auto) Absolute Neuts (auto) Absolute Nucleated RBC Nucleated RBC % (auto) PT INR APTT Sodium Potassium Chloride Carbon Dioxide Anion Gap BUN Creatinine Estim Creat Clear Calc Estimated GFR Random Glucose Lactic Acid 1.3 Calcium Magnesium Total Bilirubin Direct Bilirubin AST ALT Alkaline Phosphatase Troponin I High Sens Total Protein Albumin Urine Color Urine Appearance Urine pH Ur Specific [place] Urine Protein Urine Glucose (UA) Urine Ketones Urine Blood Urine Nitrite Ur Leukocyte Esterase Urine RBC Urine WBC Ur Squamous Epith Cells Urine Bacteria COVID-19 (FABIOLA) COVID-19 Clin Com Blood Type A Positive Antibody Screen NEGATIVE Airway Mallampati Class: IV Neck ROM: Full Loose/Missing/Broken Teeth: Yes ([place] , ) Assessment and Plan Final Anesthetic Review Family History of Problems with Anesthesia: No History of Problems with Anesthesia: No NPO: Yes ASA Class: III Final Preanesthetic Review: Anes Risks/Benef Reviewed Patient Risk: High Procedure Risk: Intermediate Anesthetic Plan Anesthetic Plan: GA Disposition: Standard PACU
--- NOTE | 2021-09-18 12:30 | PC.NURSE ---
transport on floor to take pt to surgery
[2021-09-18] MEDS: Metoprolol Succinate ER 50 MG TAB.ER.24H PO (13:19)
--- NOTE | 2021-09-18 13:29 | MHC.CM.PN ---
Addendum entered by Lisette Renteria 09/18/21 15:36: CURRENT DC PLAN IS HOME WITH [facility] AND FAMILY SUPPORT PT MAY NEED BLS TRANSPORT HOME DEPENDING ON HIP PRECAUTIONS Addendum entered by Lisette Renteria 09/18/21 15:30: ROXANNA CALLED PTS DAUGHTER, LEXI ([phone]) WHO REPORTS THE PT LIVES WITH HER AND HER AND WAS FULLY INDEPENDENT AND USED NO DME JEWEL HOLE ROUGH OPENER. SHE REPORTS THE PT ALSO HAD NO SERVICES. SHE SAYS PT HAS BEEN VACCINATED AGAINST COVID-19 WITH [facility] AND HAD THE BOOSTER. SHE REPORTS THE PT HAS A FOLDER WITH [facility] AT HOME, SHE BELIEVES THERE IS A HCP IN THERE, SHE WILL CHECK WHEN AT HOME. [place] REPORTS THEY WERE HOPING THE PT WOULD BE ABLE TO RECOVER AT HOME. SHE WENT AND BOUGHT HER A RECLINER SHE KNOWS SHE WILL NOT BE ABLE TO LIE FLAT SHE ALSO ASKED ABOUT A HOSPITAL BED AND WILL LOOK INTO [facility]. IMM WAS DELIVERED, ORIGINAL WILL BE MAILED TO PTS HOME, COPY SENT TO [facility] Original Note: ROXANNA ATTEMPTED TO SEE PT WHO WAS OFF UNIT. CM WILL REVISIT
--- NOTE | 2021-09-18 13:58 | PC.NURSE ---
iv to lt forearm puffy, red, warm and leaking. iv d/c'd and new one accessed to rt wrist, #20g
[2021-09-18] MEDS: Lactated Ringers 1,000 ML 80 ML IVCONT (14:11)
--- NOTE | 2021-09-18 14:50 | P.PNIM_ITS ---
Subjective Subjective Date of Service: 09/18/21 Interval History: no acute issues overnight. Persistent right hip pain control with Dilaudid Review of Systems denies chest pain Denies shortness of breath Denies nausea vomiting diarrhea Physical Exam Vital Signs: Vital Signs: Last Vital Signs Temp 99.6 F 09/18/21 13:23 Pulse 104 H 09/18/21 13:23 Resp 16 09/18/21 13:23 BP 123/66 09/18/21 13:23 Pulse Ox 92 09/18/21 13:23 BMI result Body Mass Index 36.0 Const: Other: no acute distress Resp: Other: clear to auscultation bilaterally no rales rhonchi wheezes Cardio: Other: no S4; positive S1-S2; no S3 murmurs rubs or gallops GI: Other: soft nontender nondistended with normoactive bowel sounds Extrem: Other: pain over right hip Objective Data Active Medications Acetaminophen (Acetaminophen 325 Mg Tablet) 650 mg PO Q6H PRN PRN Reason: Pain, Mild (Pain Scale 1-3) Amlodipine Besylate (Amlodipine Besylate 5 Mg Tablet) 5 mg PO DAILY [facility]; Protocol Aspirin (Aspirin Enteric Coated 81 Mg Tablet.Dr) 81 mg PO DAILY [facility] Atorvastatin Calcium (Atorvastatin Calcium 10 Mg Tablet) 10 mg PO BEDTIME [facility] Docusate Sodium (Docusate Sodium 100 Mg Capsule) 100 mg PO DAILY PRN PRN Reason: Constipation Famotidine (Famotidine 20 Mg Tablet) 40 mg PO DAILY [facility] Hydrochlorothiazide (Hydrochlorothiazide 12.5 Mg Tablet) 12.5 mg PO DAILY [facility]; Protocol Hydromorphone HCl (Hydromorphone Hcl 1 Mg/Ml Syringe) 1 mg IVPUSH Q4H PRN; Protocol PRN Reason: Pain, Severe (Pain Scale 7-10) Last Admin: 09/18/21 08:21 Dose: 1 mg Documented by: DAYLIN Lactated Ringer's (Lr) 1,000 mls @ 80 mls/hr IVCONT .[id number] [facility] Last Admin: 09/18/21 14:11 Dose: 80 mls/hr Documented by: JOSEE Isosorbide Mononitrate (Isosorbide Mononitrate 30 Mg Tab.Er.24h) 90 mg PO DAILY [facility]; Protocol Lisinopril (Lisinopril 20 Mg Tablet) 20 mg PO DAILY [facility] Metoprolol Succinate (Metoprolol Succinate Er 50 Mg Tab.Er.24h) 50 mg PO DAILY [facility]; Protocol Last Admin: 09/18/21 13:19 Dose: 50 mg Documented by: JOSEE Morphine Sulfate (Morphine Sulfate 4 Mg/Ml Cartridge) 4 mg IVPUSH Q4H PRN; Protocol PRN Reason: Pain, Severe (Pain Scale 7-10) Ondansetron HCl (Ondansetron Hcl 4 Mg/2 Ml Vial) 4 mg IVPUSH Q8H PRN PRN Reason: Nausea and Vomiting Oxycodone HCl (Oxycodone Hcl Immed Release 5 Mg Tablet) 5 mg PO Q6H PRN PRN Reason: Pain, Severe (Pain Scale 7-10) Pharmacy Consult (Consult Rx Perform Med Rec) 1 each MISCELLANE ONCE PRN PRN Reason: Consult order Sodium Chloride (0.9 % Sodium Chloride Flush 3 Ml Syringe) 3 ml IVFLUSH QSHIFT [facility] Labs CBC & Chem 7: 09/17/21 16:22 09/17/21 16:22 Labs: Laboratory Results - last 24 hr 09/17/21 09/17/21 09/17/21 16:22 16:22 16:22 MCV 89.1 MCH 29.6 MCHC 33.2 RDW 12.6 Plt Count 282 MPV 9.1 L Immature Gran % (Auto) 0.6 H Neut % (Auto) 76.8 H Lymph % (Auto) 13.7 L [place] % (Auto) 8.0 Eos % (Auto) 0.5 Baso % (Auto) 0.4 Lymph # (Auto) 1.5 [place] # (Auto) 0.9 Eos # (Auto) 0.1 Baso # (Auto) 0.0 Abs Immat Gran (auto) 0.06 H Absolute Neuts (auto) 8.2 Absolute Nucleated RBC 0.000 Nucleated RBC % (auto) 0.0 PT 12.1 INR 1.1 APTT 31.9 Anion Gap 14 Estim Creat Clear Calc 67.1 Estimated GFR > 60 Random Glucose 119 H Lactic Acid Calcium 9.3 Magnesium 2.2 Total Bilirubin 0.4 Direct Bilirubin 0.2 AST 25 ALT 24 Alkaline Phosphatase 91 Troponin I High Sens Total Protein 6.5 Albumin 3.8 Urine Color Urine Appearance Urine pH Ur Specific [place] Urine Protein Urine Glucose (UA) Urine Ketones Urine Blood Urine Nitrite Ur Leukocyte Esterase Urine RBC Urine WBC Ur Squamous Epith Cells Urine Bacteria COVID-19 (FABIOLA) COVID-19 Clin Com Blood Type Antibody Screen 09/17/21 09/17/21 09/17/21 16:22 16:22 18:43 MCV MCH MCHC RDW Plt Count MPV Immature Gran % (Auto) Neut % (Auto) Lymph % (Auto) [place] % (Auto) Eos % (Auto) Baso % (Auto) Lymph # (Auto) [place] # (Auto) Eos # (Auto) Baso # (Auto) Abs Immat Gran (auto) Absolute Neuts (auto) Absolute Nucleated RBC Nucleated RBC % (auto) PT INR APTT Anion Gap Estim Creat Clear Calc Estimated GFR Random Glucose Lactic Acid Calcium Magnesium Total Bilirubin Direct Bilirubin AST ALT Alkaline Phosphatase Troponin I High Sens < 3.5 Total Protein Albumin Urine Color YELLOW Urine Appearance CLEAR Urine pH 6.0 Ur Specific [place] 1.025 Urine Protein NEG Urine Glucose (UA) NEG Urine Ketones NEG Urine Blood NEG Urine Nitrite POS H Ur Leukocyte Esterase 1+ H Urine RBC 5-9 H Urine WBC 15-29 H Ur Squamous Epith Cells TRACE Urine Bacteria 3+ COVID-19 (FABIOLA) Negative COVID-19 Clin Com See Note Blood Type Antibody Screen 09/17/21 09/18/21 20:32 05:56 MCV MCH MCHC RDW Plt Count MPV Immature Gran % (Auto) Neut % (Auto) Lymph % (Auto) [place] % (Auto) Eos % (Auto) Baso % (Auto) Lymph # (Auto) [place] # (Auto) Eos # (Auto) Baso # (Auto) Abs Immat Gran (auto) Absolute Neuts (auto) Absolute Nucleated RBC Nucleated RBC % (auto) PT INR APTT Anion Gap Estim Creat Clear Calc Estimated GFR Random Glucose Lactic Acid 1.3 Calcium Magnesium Total Bilirubin Direct Bilirubin AST ALT Alkaline Phosphatase Troponin I High Sens Total Protein Albumin Urine Color Urine Appearance Urine pH Ur Specific [place] Urine Protein Urine Glucose (UA) Urine Ketones Urine Blood Urine Nitrite Ur Leukocyte Esterase Urine RBC Urine WBC Ur Squamous Epith Cells Urine Bacteria COVID-19 (FABIOLA) COVID-19 Clin Com Blood Type A Positive Antibody Screen NEGATIVE Microbiology Microbiology Results: Microbiology 09/17/21 Unknown Urine Culture - Preliminary Urine clean catch - Urine armenta top Gram negative [place] Assessment and Plan (1) Closed fracture of right hip: Status: Acute (2) CAD (coronary artery disease): Status: Acute (3) HTN (hypertension): Status: Acute (4) Hyperlipidemia: Status: Acute Assessment and Plan: 75-year-old female with past medical history of CAD as well as hypertension presents to the hospital after a fall found to have right hip fracture; hemodynamically stable 1. Right hip fracture - Ms Lilo is a moderate but acceptable cardiovascular risk for ORIF right hip - beta-tone and oral nitrates given this a.m. 2.CAD - stable, will need telemetry postoperatively - continue aspirin isosorbide lisinopril metoprolol the postoperative. 3.HTN - Acceptable control on current therapies - meds as above full code boots Quality Stroke Does the patient have a stroke diagnosis?: No VTE Prior VTE?: No VTE Risk Level:: Medical - moderate - high VTE Device Contraindication: N/A - Device Ordered VTE Drug Contraindication: Treatment Not Indicated
--- NOTE | 2021-09-18 15:54 | MHC.SHP ---
Pre-Procedural Eval Section A Date of Service: 09/18/21 The patient is an INPATIENT: Yes Changes since office visit: No Cold of Flu in the past 2 weeks, No New Medical Problems, No Changes in Medication and No Patient answered all questions The History & Physical has been completed within 30 days and I have reviewed it.: Yes Section B Chief Complaint: Hip Fracture Allergies: Allergies Allergy/AdvReac Type Severity Reaction Status Date / Time codeine [CODEINE] Allergy Intermediate RASH Verified 09/17/21 16:08 Plan I have reviewed the history and physical and performed a pertinent physical examination on my patient. No changes have occurred unless specified.
--- NOTE | 2021-09-18 15:57 | PM.OP ---
Brief Operative Note Date of Service: 09/18/21 Pre-op diagnosis: right hip fracture Post-op diagnosis: same Procedure: right hip CMN Implants: Peace 125 deg 11x 360 mm with 95 mm hip screw Surgeon: Moisés Aleman MD Anesthesia: GETA and local Was an Hog Confinement System Manager used for this Procedure?: No Estimated blood loss (mL): 150 IV fluids (mL): 800 Pathology: none sent Condition: stable Disposition: PACU
[2021-09-18] MEDS: oxyCODONE HCl Immed Release 5 MG TABLET PO (16:21)
[2021-09-18] MEDS: fentaNYL citrate/PF 100 MCG/2 ML VIAL 25 MCG IVPUSH (16:22)
[2021-09-18] MEDS: Atorvastatin Calcium 10 MG TABLET PO (20:37)
[2021-09-19] VITALS (7 sets, daily range): BP systolic 80–117; BP diastolic 45–83; PULSE 73–108; RESP 17–20; TEMP 36.2–37.3; O2SAT 92–98
--- NOTE | 2021-09-19 04:11 | PC.NURSE ---
pt confused.pulled iv out.refused to have iv restarted.thinks we are doing experiments on her. in to see pt.[id number]% on RA.o2 3l applied went up to 92-93%.spoke with daughter Alana who will be in to sit with pt.dual rate supervisor aware.
[2021-09-19] MEDS: Acetaminophen 325 MG TABLET 650 MG PO ×2 (05:38→19:43)
[2021-09-19] MEDS: oxyCODONE HCl Immed Release 5 MG TABLET PO ×2 (05:38→19:44)
[2021-09-19 05:49] LABS: MANUAL DIFF FLAG NO
[2021-09-19 06:07] LABS: Anion Gap 13 (12-20); Blood Urea Nitrogen 20 mg/dL (9-16); Calcium 9.1 mg/dL (8.4-10.2); Carbon Dioxide 25 mmol/L (22-29); Chloride 104 mmol/L (96-108); Creatinine Clr Calc Pharmacy 74.5; Estimated Glomerular Filt Rate > 60; Glucose Random 125 mg/dL (60-115); Potassium 4.4 mmol/L (3.3-5.1); Sodium 138 mmol/L (135-145)
[2021-09-19 06:19] LABS: Basophils Percent Auto 0.1 % (0-2); Hematocrit 35.2 % (37.0-47.0); Hemoglobin 11.4 g/dl (12.0-16.0); Imm Gran Abs Auto 0.07 X10*3/uL (0.00-0.03); Imm Gran Pct Auto 0.5 % (0.0-0.4); Lymphocytes Absolute Auto 0.9 X10*3/uL (1.2-4.9); Lymphocytes Percent Auto 6.7 % (20-40); Mean Corpuscular HGB Conc 32.4 g/dl (31.0-35.0); Mean Corpuscular Hemoglobin 29.5 pg (27.0-33.0); Mean Corpuscular Volume 91.2 fL (80.0-98.0); Mean Platelet Volume 9.5 fL (9.4-12.3); Monocytes Absolute Auto 1.3 X10*3/uL (0.1-1.2); Monocytes Percent Auto 9.9 % (2-11); Neutrophils Absolute Auto 11.1 x10*3/uL (2.0-8.3); Neutrophils Percent Auto 82.8 % (45-73); Platelet Count 274 X10*3/uL (160-400); Red Blood Count 3.86 X10*6/uL (4.20-5.50); Red Cell Distribution Width 12.7 % (11.0-16.0); White Blood Count 13.4 X10*3/uL (4.8-10.8)
--- NOTE | 2021-09-19 07:46 | PM.PNORT ---
Subjective Subjective Date of Service: 09/19/21 Interval history: POD 1 s/p Right hip IMN early this morning patient was confused now a/ox3 pain is tolerable denies cp,sob,palpitations Physical Exam Vital Signs: Vital Signs: Last Vital Signs Temp 97.7 F 09/18/21 23:53 Pulse 108 H 09/19/21 04:02 Resp 20 09/19/21 04:02 BP 117/83 09/19/21 04:02 Pulse Ox 92 09/19/21 04:02 Oxygen Flow Rate 3 09/18/21 16:15 BMI result Body Mass Index 36.0 Const: General: cooperative, healthy appearing and no acute distress Resp: Effort & Inspection: normal respiratory effort and able to speak in complete sentences Cardio: Rate: regular rate Peripheral pulses: Peripheral pulses 2+ throughout GI: Palpation (GI): Soft to palpation Skin: General skin exam: no rashes or lesions noted Extrem: Other: bandage clean dry and intact. Kevin intact. No erythema or effusion. Calf supple nontender. Neurovascularly intact. Procedures Date of Service Date of Service: 09/19/21 Progress Note: A&P Assessment and plan (1) Closed fracture of right hip: Status: Acute Assessment and Plan: Continue pain mgmnt Begin lovenox for dvt ppx begin PT /OT for Right hip IMN Dispo planning-Pending PT eval, pain mgmnt Fall Risk Details Current Medications: Current Medications Acetaminophen (Acetaminophen 325 Mg Tablet) 650 mg PO Q6H PRN PRN Reason: Pain, Mild (Pain Scale 1-3) Last Admin: 09/19/21 05:38 Dose: 650 mg Documented by: Amlodipine Besylate (Amlodipine Besylate 5 Mg Tablet) 5 mg PO DAILY [facility]; Protocol Last Admin: 09/18/21 17:10 Dose: Not Given Documented by: Aspirin (Aspirin Enteric Coated 81 Mg Tablet.) 81 mg PO DAILY [facility] Last Admin: 09/18/21 17:10 Dose: Not Given Documented by: Atorvastatin Calcium (Atorvastatin Calcium 10 Mg Tablet) 10 mg PO BEDTIME [facility] Last Admin: 09/18/21 20:37 Dose: 10 mg Documented by: Docusate Sodium (Docusate Sodium 100 Mg Capsule) 100 mg PO DAILY PRN PRN Reason: Constipation Famotidine (Famotidine 20 Mg Tablet) 40 mg PO DAILY [facility] Last Admin: 09/18/21 17:10 Dose: Not Given Documented by: Hydrochlorothiazide (Hydrochlorothiazide 12.5 Mg Tablet) 12.5 mg PO DAILY [facility]; Protocol Last Admin: 09/18/21 17:10 Dose: Not Given Documented by: Hydromorphone HCl (Hydromorphone Hcl 1 Mg/Ml Syringe) 1 mg IVPUSH Q4H PRN; Protocol PRN Reason: Pain, Severe (Pain Scale 7-10) Last Admin: 09/18/21 22:22 Dose: 1 mg Documented by: Promethazine HCl 12.5 mg/ (Sodium Chloride) 50.5 mls @ 202 mls/hr IV ONCE PRN PRN Reason: Nausea and Vomiting Isosorbide Mononitrate (Isosorbide Mononitrate 30 Mg Tab.Er.24h) 90 mg PO DAILY [facility]; Protocol Lisinopril (Lisinopril 20 Mg Tablet) 20 mg PO DAILY [facility] Last Admin: 09/18/21 17:10 Dose: Not Given Documented by: Metoprolol Succinate (Metoprolol Succinate Er 50 Mg Tab.Er.24h) 50 mg PO DAILY [facility]; Protocol Last Admin: 09/18/21 13:19 Dose: 50 mg Documented by: Morphine Sulfate (Morphine Sulfate 4 Mg/Ml Cartridge) 4 mg IVPUSH Q4H PRN; Protocol PRN Reason: Pain, Severe (Pain Scale 7-10) Ondansetron HCl (Ondansetron Hcl 4 Mg/2 Ml Vial) 4 mg IVPUSH Q8H PRN PRN Reason: Nausea and Vomiting Oxycodone HCl (Oxycodone Hcl Immed Release 5 Mg Tablet) 5 mg PO Q6H PRN PRN Reason: Pain, Severe (Pain Scale 7-10) Last Admin: 09/19/21 05:38 Dose: 5 mg Documented by: Pharmacy Consult (Consult Rx Perform Med Rec) 1 each MISCELLANE ONCE PRN PRN Reason: Consult order Sodium Chloride (0.9 % Sodium Chloride Flush 3 Ml Syringe) 3 ml IVFLUSH QSHIFT [facility] Last Admin: 09/18/21 21:21 Dose: Not Given Documented by: Time Spent With Patient Time: Total time spent is greater than 50% in coordination of care (as documented) at patient's floor/unit and/or counseling patient: Time with patient: less than 15 minutes Quality Stroke Does the patient have a stroke diagnosis?: No VTE Prior VTE?: No VTE Risk Level:: Medical - moderate - high VTE Device Contraindication: N/A - Device Ordered VTE Drug Contraindication: Treatment Not Indicated
[2021-09-19] MEDS: Aspirin Enteric Coated 81 MG TABLET.DR PO (08:00)
[2021-09-19] MEDS: Famotidine 20 MG TABLET 40 MG PO (08:00)
[2021-09-19] MEDS: amLODIPine Besylate 5 MG TABLET PO (08:00)
[2021-09-19] MEDS: Metoprolol Succinate ER 50 MG TAB.ER.24H PO (08:00)
[2021-09-19] MEDS: Isosorbide Mononitrate 30 MG TAB.ER.24H 90 MG PO (08:01)
[2021-09-19] MEDS: lisinopriL 20 MG TABLET PO (08:01)
[2021-09-19] MEDS: hydroCHLOROthiazide 12.5 MG TABLET PO (08:01)
--- NOTE | 2021-09-19 08:18 | P.OP_ITS ---
Operative Note Operative Note Date of Service: 09/18/21 Narrative: Date of Service: 09/18/21 Pre-op diagnosis: right hip fracture Post-op diagnosis: same Procedure: right hip CMN Implants: Peace 125 deg 11x 360 mm with 95 mm hip screw Surgeon: Moisés Aleman MD Anesthesia: GETA and local Was an Industrial Relations Commissioner used for this Procedure?: No Estimated blood loss (mL): 150 IV fluids (mL): 800 Pathology: none sent Condition: stable Disposition: PACU Procedure in detail: Patient was brought to the operating room and prepped and draped in standard sterile fashion. Time-out was called to identify proper site procedure proper surgeon and IV antibiotics per weight were administered. She was positioned on the fracture table and a traction and slight internal rotation were performed and biplanar fluoroscopy confirmed initial fracture reduction. I then made a stab incision proximal to the greater trochanter in using a guidewire made a entry point just lateral to the tip of the greater trochanter and placed a guidewire into the femoral metadiaphysis. I then over-reamed with 15 mm Reamer placed my ball-tip guidewire down distally in the femur and measured my length. I selected a 360mm nail and reamed up to a 13. I then placed a the 360 x 11 x 125deg nail. I then turned my attention to the hip screw where I used a guidewire and a tip apex distance of less than 1.5 measured a 95mm hip screw. I then pre drilled and placed a hip screw using biplanar fluoroscopy. Once I was happy with the position of the hip screw I turned my attention to the distal aspect of nail. I was satisfied with the hardware position distally and since this was a low neck/his IT I elected not to palce a distal screw. I was satisfied with the position of the hardware and the fracture reduction proximally. I copiously irrigated and closed with absorbable sutures west and injected 30 mL of into the area of the incisions. Traction was let down patient was placed in sterile dressing awakened from anesthesia brought to recovery room stable condition there were no known complications.
[2021-09-19] MEDS: cefTRIAXone sodium 1 GM in 0.9 % Sodium Chloride 50 ML IV (10:01)
[2021-09-19] MEDS: Morphine Sulfate 4 MG/ML CARTRIDGE IVPUSH (10:01)
[2021-09-19] MEDS: Omeprazole 40 MG CAPSULE.DR PO (10:01)
--- NOTE | 2021-09-19 11:34 | P.PNIM_ITS ---
Subjective Subjective Date of Service: 09/19/21 Interval History: cc: fall interval history: dysuria, nausea and vomitting Cardiovascular Cardiovascular: Reports no additional cardiovascular complaints Respiratory Respiratory: Reports no additional respiratory complaints Physical Exam Vital Signs: Vital Signs: Last Vital Signs Temp 98.7 F 09/19/21 11:19 Pulse 79 09/19/21 11:19 Resp 20 09/19/21 11:19 BP 80/45 L 09/19/21 11:19 Pulse Ox 96 09/19/21 11:19 Oxygen Flow Rate 3 09/18/21 16:15 BMI result Body Mass Index 36.0 General: AO X 3, no acute distress Resp: CTA bilateral, no accessory muscles used CVS: S1,S2,RRR GI: soft, non tender, non distended Neuro: motor grossly intact, alert Psych: appropriate affect, appropriate insight Objective Data Active Medications Acetaminophen (Acetaminophen 325 Mg Tablet) 650 mg PO Q6H PRN PRN Reason: Pain, Mild (Pain Scale 1-3) Last Admin: 09/19/21 05:38 Dose: 650 mg Documented by: MILIND Amlodipine Besylate (Amlodipine Besylate 5 Mg Tablet) 5 mg PO DAILY [facility]; Protocol Last Admin: 09/19/21 08:00 Dose: 5 mg Documented by: WALTER Aspirin (Aspirin Enteric Coated 81 Mg Tablet.) 81 mg PO DAILY [facility] Last Admin: 09/19/21 08:00 Dose: 81 mg Documented by: WALTER Atorvastatin Calcium (Atorvastatin Calcium 10 Mg Tablet) 10 mg PO BEDTIME [facility] Last Admin: 09/18/21 20:37 Dose: 10 mg Documented by: MILIND Docusate Sodium (Docusate Sodium 100 Mg Capsule) 100 mg PO DAILY PRN PRN Reason: Constipation Enoxaparin Sodium (Enoxaparin Sodium 40 Mg/0.4 Ml Syringe) 40 mg SUBCUT Q24H [facility] Famotidine (Famotidine 20 Mg Tablet) 40 mg PO DAILY [facility] Last Admin: 09/19/21 08:00 Dose: 40 mg Documented by: WALTER Hydromorphone HCl (Hydromorphone Hcl 1 Mg/Ml Syringe) 1 mg IVPUSH Q4H PRN; Protocol PRN Reason: Pain, Severe (Pain Scale 7-10) Last Admin: 09/18/21 22:22 Dose: 1 mg Documented by: MILIND Promethazine HCl 12.5 mg/ (Sodium Chloride) 50.5 mls @ 202 mls/hr IV ONCE PRN PRN Reason: Nausea and Vomiting Ceftriaxone Sodium 1 gm/ (Sodium Chloride) 50 mls @ 100 mls/hr IV Q24H [facility] Last Admin: 09/19/21 10:01 Dose: 100 mls/hr Documented by: RADHAMES Isosorbide Mononitrate (Isosorbide Mononitrate 30 Mg Tab.Er.24h) 90 mg PO DAILY [facility]; Protocol Last Admin: 09/19/21 08:01 Dose: 90 mg Documented by: WALTER Metoprolol Succinate (Metoprolol Succinate Er 50 Mg Tab.Er.24h) 50 mg PO DAILY [facility]; Protocol Last Admin: 09/19/21 08:00 Dose: 50 mg Documented by: WALTER Morphine Sulfate (Morphine Sulfate 4 Mg/Ml Cartridge) 4 mg IVPUSH Q4H PRN; Protocol PRN Reason: Pain, Severe (Pain Scale 7-10) Last Admin: 09/19/21 10:01 Dose: 4 mg Documented by: RADHAMES Omeprazole (Omeprazole 40 Mg Capsule.Dr) 40 mg PO DAILY@0630 [facility] Last Admin: 09/19/21 10:01 Dose: 40 mg Documented by: RADHAMES Ondansetron HCl (Ondansetron Hcl 4 Mg/2 Ml Vial) 4 mg IVPUSH Q8H PRN PRN Reason: Nausea and Vomiting Oxycodone HCl (Oxycodone Hcl Immed Release 5 Mg Tablet) 5 mg PO Q6H PRN PRN Reason: Pain, Severe (Pain Scale 7-10) Last Admin: 09/19/21 05:38 Dose: 5 mg Documented by: MILIND Pharmacy Consult (Consult Rx Perform Med Rec) 1 each MISCELLANE ONCE PRN PRN Reason: Consult order Sodium Chloride (0.9 % Sodium Chloride Flush 3 Ml Syringe) 3 ml IVFLUSH QSHIFT [facility] Last Admin: 09/19/21 08:00 Dose: Not Given Documented by: WALTER Non-Admin Reason: IV Running Labs CBC & Chem 7: 09/19/21 05:23 09/19/21 05:23 Labs: Laboratory Results - last 24 hr 09/19/21 09/19/21 05:23 05:23 MCV 91.2 MCH 29.5 MCHC 32.4 RDW 12.7 Plt Count 274 MPV 9.5 Immature Gran % (Auto) 0.5 H Neut % (Auto) 82.8 H Lymph % (Auto) 6.7 L [place] % (Auto) 9.9 Eos % (Auto) 0.0 Baso % (Auto) 0.1 Lymph # (Auto) 0.9 L [place] # (Auto) 1.3 H Eos # (Auto) 0.0 Baso # (Auto) 0.0 Abs Immat Gran (auto) 0.07 H Absolute Neuts (auto) 11.1 H Absolute Nucleated RBC 0.000 Nucleated RBC % (auto) 0.0 Anion Gap 13 Estim Creat Clear Calc 74.5 Estimated GFR > 60 Random Glucose 125 H Calcium 9.1 Microbiology Microbiology Results: Microbiology 09/17/21 Unknown Urine Culture - Final Urine clean catch - Urine armenta top Escherichia coli 09/17/21 20:32 Blood Culture - Preliminary Blood - Venous No growth after 24 hours. 09/17/21 20:33 Blood Culture - Preliminary Blood - Venous No growth after 24 hours. Assessment and Plan (1) CAD (coronary artery disease): Status: Acute (2) Closed fracture of right hip: Status: Acute (3) HTN (hypertension): Status: Acute (4) Hyperlipidemia: Status: Acute Assessment and Plan: 75-year-old female with past medical history of CAD as well as hypertension presents to the hospital after a fall found to have right hip fracture Right hip fracture post op day 1 rgiht hip imn, management per ortho nausea and vomitting zofran, prilosec UTI ecoli, rocephin HTN now relative hypotension hold amlodipnie, lisinopril, hctz, monitor CAD asa, statin full code dvt prophylaxis - lovenox Quality Stroke Does the patient have a stroke diagnosis?: No VTE Prior VTE?: No VTE Risk Level:: Medical - moderate - high VTE Device Contraindication: N/A - Device Ordered VTE Drug Contraindication: Treatment Not Indicated
--- NOTE | 2021-09-19 15:00 | HO.POSTANES ---
Post Anesthesia Evaluation Post Anesthesia Evaluation Vital Signs: Vital Signs Temp Pulse Resp BP Pulse Ox 09/19/21 11:19 98.7 F 79 20 80/45 L 96 09/19/21 08:55 78 114/68 98 09/19/21 08:00 97.2 F 78 20 114/68 98 09/19/21 04:02 108 H 20 117/83 92 Anesthesia: General Mental Status: Awake Pain Control: Satisfactory Nausea/Vomiting: None Hydration: Adequate Anesthesia-Related Issues: No Anes. Related Issues
--- NOTE | 2021-09-19 16:03 | MHC.CM.PN ---
PATIENT IS AWARE OF ACUTE REHAB RECOMMENDATION. SHE ASKS FOR A REFERRAL TO [facility], NOW PLACED.
[2021-09-19] MEDS: 0.9 % Sodium Chloride Flush 3 ML SYRINGE IVFLUSH (17:29)
[2021-09-19] MEDS: Atorvastatin Calcium 10 MG TABLET PO (21:27)
[2021-09-20] MEDS: 0.9 % Sodium Chloride Flush 3 ML SYRINGE IVFLUSH ×2 (01:01→07:44)
[2021-09-20 03:05] VITALS: BP 135/60; PULSE 85; RESP 18; TEMP 36.1; O2SAT 95
[2021-09-20] MEDS: oxyCODONE HCl Immed Release 5 MG TABLET PO ×3 (03:16→12:41)
[2021-09-20] MEDS: Acetaminophen 325 MG TABLET 650 MG PO ×2 (03:16→07:59)
[2021-09-20 05:35] LABS: Anion Gap 11 (12-20); Blood Urea Nitrogen 20 mg/dL (9-16); Calcium 8.5 mg/dL (8.4-10.2); Carbon Dioxide 29 mmol/L (22-29); Chloride 103 mmol/L (96-108); Creatinine Clr Calc Pharmacy 73.6; Estimated Glomerular Filt Rate > 60; Glucose Fasting 110 mg/dL (60-99); Potassium 4.6 mmol/L (3.3-5.1); Sodium 138 mmol/L (135-145)
[2021-09-20 05:39] LABS: Hemoglobin 9.5 g/dl (12.0-16.0); Mean Corpuscular HGB Conc 32.8 g/dl (31.0-35.0); Mean Corpuscular Hemoglobin 29.8 pg (27.0-33.0); Mean Corpuscular Volume 90.9 fL (80.0-98.0); Mean Platelet Volume 9.4 fL (9.4-12.3); Platelet Count 227 X10*3/uL (160-400); Red Blood Count 3.19 X10*6/uL (4.20-5.50); Red Cell Distribution Width 12.8 % (11.0-16.0); White Blood Count 10.7 X10*3/uL (4.8-10.8)
[2021-09-20] MEDS: Omeprazole 40 MG CAPSULE.DR PO (05:41)
[2021-09-20] MEDS: Famotidine 20 MG TABLET 40 MG PO (07:38)
[2021-09-20] MEDS: Aspirin Enteric Coated 81 MG TABLET.DR PO (07:39)
[2021-09-20] MEDS: Isosorbide Mononitrate 30 MG TAB.ER.24H 90 MG PO (07:40)
[2021-09-20] MEDS: Metoprolol Succinate ER 50 MG TAB.ER.24H PO (07:40)
[2021-09-20] MEDS: cefTRIAXone sodium 1 GM in 0.9 % Sodium Chloride 50 ML IV (07:41)
[2021-09-20 08:00] VITALS: BP 119/57; PULSE 74; RESP 20; TEMP 36.5; O2SAT 92
--- NOTE | 2021-09-20 08:40 | P.PNIM_ITS ---
Subjective Subjective Date of Service: 09/20/21 Interval History: cc: fall interval history: dysuria and nausea and vomitting resolved Cardiovascular Cardiovascular: Reports no additional cardiovascular complaints Respiratory Respiratory: Reports no additional respiratory complaints Physical Exam Vital Signs: Vital Signs: Last Vital Signs Temp 97.7 F 09/20/21 08:00 Pulse 74 09/20/21 08:00 Resp 20 09/20/21 08:00 BP 119/57 L 09/20/21 08:00 Pulse Ox 92 09/20/21 08:00 Oxygen Flow Rate 3 09/19/21 16:15 BMI result Body Mass Index 36.0 General: AO X 3, no acute distress Resp:? CTA bilateral, no accessory muscles used CVS: S1,S2,RRR GI: soft, non tender, non distended Neuro:? motor grossly intact, alert Psych: appropriate affect, appropriate insight? Objective Data Active Medications Acetaminophen (Acetaminophen 325 Mg Tablet) 650 mg PO Q6H PRN PRN Reason: Pain, Mild (Pain Scale 1-3) Last Admin: 09/20/21 07:59 Dose: 650 mg Documented by: AWA Aspirin (Aspirin Enteric Coated 81 Mg Tablet.Dr) 81 mg PO DAILY [facility] Last Admin: 09/20/21 07:39 Dose: 81 mg Documented by: AWA Atorvastatin Calcium (Atorvastatin Calcium 10 Mg Tablet) 10 mg PO BEDTIME [facility] Last Admin: 09/19/21 21:27 Dose: 10 mg Documented by: MILIND Docusate Sodium (Docusate Sodium 100 Mg Capsule) 100 mg PO DAILY PRN PRN Reason: Constipation Enoxaparin Sodium (Enoxaparin Sodium 40 Mg/0.4 Ml Syringe) 40 mg SUBCUT Q24H [facility] Last Admin: 09/19/21 15:29 Dose: Not Given Documented by: RADHAMES Non-Admin Reason: Patient Refused Famotidine (Famotidine 20 Mg Tablet) 40 mg PO DAILY [facility] Last Admin: 09/20/21 07:38 Dose: 40 mg Documented by: AWA Hydromorphone HCl (Hydromorphone Hcl 1 Mg/Ml Syringe) 1 mg IVPUSH Q4H PRN; Protocol PRN Reason: Pain, Severe (Pain Scale 7-10) Last Admin: 09/18/21 22:22 Dose: 1 mg Documented by: MILIND Promethazine HCl 12.5 mg/ (Sodium Chloride) 50.5 mls @ 202 mls/hr IV ONCE PRN PRN Reason: Nausea and Vomiting Ceftriaxone Sodium 1 gm/ (Sodium Chloride) 50 mls @ 100 mls/hr IV Q24H [facility] Last Admin: 09/20/21 07:41 Dose: 100 mls/hr Documented by: AWA Isosorbide Mononitrate (Isosorbide Mononitrate 30 Mg Tab.Er.24h) 90 mg PO DAILY [facility]; Protocol Last Admin: 09/20/21 07:40 Dose: 90 mg Documented by: AWA Metoprolol Succinate (Metoprolol Succinate Er 50 Mg Tab.Er.24h) 50 mg PO DAILY [facility]; Protocol Last Admin: 09/20/21 07:40 Dose: 50 mg Documented by: AWA Morphine Sulfate (Morphine Sulfate 4 Mg/Ml Cartridge) 4 mg IVPUSH Q4H PRN; Protocol PRN Reason: Pain, Severe (Pain Scale 7-10) Last Admin: 09/19/21 10:01 Dose: 4 mg Documented by: RADHAMES Omeprazole (Omeprazole 40 Mg Capsule.Dr) 40 mg PO DAILY@0630 [facility] Last Admin: 09/20/21 05:41 Dose: 40 mg Documented by: MILIND Ondansetron HCl (Ondansetron Hcl 4 Mg/2 Ml Vial) 4 mg IVPUSH Q8H PRN PRN Reason: Nausea and Vomiting Oxycodone HCl (Oxycodone Hcl Immed Release 5 Mg Tablet) 5 mg PO Q6H PRN PRN Reason: Pain, Severe (Pain Scale 7-10) Last Admin: 09/20/21 08:00 Dose: 5 mg Documented by: AWA Pharmacy Consult (Consult Rx Perform Med Rec) 1 each MISCELLANE ONCE PRN PRN Reason: Consult order Sodium Chloride (0.9 % Sodium Chloride Flush 3 Ml Syringe) 3 ml IVFLUSH QSHIFT [facility] Last Admin: 09/20/21 07:44 Dose: 3 ml Documented by: AWA Labs CBC & Chem 7: 09/20/21 05:06 09/20/21 05:06 Labs: Laboratory Results - last 24 hr 09/20/21 09/20/21 05:06 05:06 MCV 90.9 MCH 29.8 MCHC 32.8 RDW 12.8 Plt Count 227 MPV 9.4 Absolute Nucleated RBC 0.000 Nucleated RBC % (auto) 0.0 Anion Gap 11 L Estim Creat Clear Calc 73.6 Estimated GFR > 60 Fasting Glucose 110 H Calcium 8.5 D Microbiology Microbiology Results: Microbiology 09/17/21 20:32 Blood Culture - Preliminary Blood - Venous No growth after 48 hours. 09/17/21 20:33 Blood Culture - Preliminary Blood - Venous No growth after 48 hours. 09/17/21 Unknown Urine Culture - Final Urine clean catch - Urine armenta top Escherichia coli Assessment and Plan (1) CAD (coronary artery disease): Status: Acute (2) Closed fracture of right hip: Status: Acute (3) HTN (hypertension): Status: Acute (4) Hyperlipidemia: Status: Acute Assessment and Plan: 75-year-old female with past medical history of CAD as well as hypertension presents to the hospital after a fall found to have right hip fracture Right hip fracture post op day 2 rgiht hip imn, management per ortho nausea and vomitting zofran, prilosec resolved UTI ecoli, rocephin day 2 HTN relative hypotension holding amlodipnie, lisinopril, hctz, monitor CAD asa, statin full code dvt prophylaxis - lovenox Quality Stroke Does the patient have a stroke diagnosis?: No VTE Prior VTE?: No VTE Risk Level:: Medical - moderate - high VTE Device Contraindication: N/A - Device Ordered VTE Drug Contraindication: Treatment Not Indicated
[2021-09-20 08:54] VITALS: BP 119/57; PULSE 74; O2SAT 92
--- NOTE | 2021-09-20 08:57 | PM.DS ---
DS: Providers Provider Date of Service: 09/20/21 Date of admission: 09/17/21 21:23 Primary care physician: Blade Hussein MD Consults: 09/18/21 12:41 Consult to Orthopedics Routine Consulting Provider: Moisés Aleman Reason for consultation: R Hip fracture Has provider been notified: Yes DS: Diagnosis Discharge Diagnosis (1) CAD (coronary artery disease): Status: Acute (2) Closed fracture of right hip: Status: Acute (3) HTN (hypertension): Status: Acute (4) Hyperlipidemia: Status: Acute DS: Summary Hospital Course Hospital Course: Patient was admitted for mechanical fall and right hip fracture. She underwent right hip IMN. patient tolerated surgery well. She did have some nausea vomiting and relative hypotension postoperatively. Her blood pressure meds have been held and should be restarted once her blood pressure goes back to being elevated. Her nausea vomiting resolved with Zofran and Prilosec. She was complaining of dysuria and found to have UTI due to E coli. She was treated with ceftriaxone in hospital and will be discharged on 3 more days of cefuroxime. Patient is doing well and will be discharged to [facility] facility Time Spent with Patient Time attestation: Total time spent providing and/or coordinating discharge services: Discharge coordination time: Greater than 30 minutes Quality: Stroke Does the patient have a stroke diagnosis?: No Physical Exam Vital Signs: Vital Signs: Last Vital Signs Temp 97.7 F 09/20/21 08:00 Pulse 74 09/20/21 08:00 Resp 20 09/20/21 08:00 BP 119/57 L 09/20/21 08:00 Pulse Ox 92 09/20/21 08:00 Oxygen Flow Rate 3 09/19/21 16:15 BMI result Body Mass Index 36.0 General: AO X 3, no acute distress Resp: CTA bilateral, no accessory muscles used CVS: S1,S2,RRR GI: soft, non tender, non distended Neuro: motor grossly intact, alert Psych: appropriate affect, appropriate insight DS: Data Data Completed and Pending Labs on day of discharge: Laboratory Results - last 24 hr 09/20/21 09/20/21 05:06 05:06 WBC 10.7 RBC 3.19 L Hgb 9.5 L Hct 29.0 L MCV 90.9 MCH 29.8 MCHC 32.8 RDW 12.8 Plt Count 227 MPV 9.4 Absolute Nucleated RBC 0.000 Nucleated RBC % (auto) 0.0 Sodium 138 Potassium 4.6 Chloride 103 Carbon Dioxide 29 Anion Gap 11 L BUN 20 H Creatinine 0.82 Estim Creat Clear Calc 73.6 Estimated GFR > 60 Fasting Glucose 110 H Calcium 8.5 D Preliminary micro results at discharge 09/17/21 20:32 Blood Culture - Preliminary Blood - Venous No growth after 48 hours. 09/17/21 20:33 Blood Culture - Preliminary Blood - Venous No growth after 48 hours. Discharge Plan Discharge Patient Disposition: [facility] Discharge Diagnosis: hip fracture, uti Referrals: Blade Hussein MD [Primary Care Provider] - 1 Week Aretha Marley PA-C [Physician Wardrobe Specialty Worker] - 2 Weeks (10/05/21 11:30 [facility]geons Aretha Marley PA-C) Discharge Medications: New (DME) raised toilet seat See Rx Instructions .Route .MEDSUPPLY Qty: 1 RF: 0 omeprazole 40 mg Capsule,Delayed Release(Dr/Ec) 40 mg PO DAILY@0630 Qty: 0 RF: 0 oxycodone 5 mg Tablet 5 mg PO Q6H PRN (Reason: Pain, Severe (Pain Scale 7-10)) Qty: 10 RF: 0 enoxaparin 40 mg/0.4 mL Syringe 40 mg subcut Q24H Qty: 0 RF: 0 cefuroxime axetil 250 mg tablet 250 mg PO Q12H Qty: 6 RF: 0 Continued metoprolol succinate 50 mg tablet extended release 24 hr 50 mg PO DAILY Qty: 90 RF: 3 isosorbide mononitrate 60 mg tablet extended release 24 hr 90 mg PO DAILY Qty: 135 RF: 1 famotidine 40 mg tablet 1 tab PO DAILY RF: 0 simvastatin 20 mg tablet 1 tab PO BEDTIME RF: 0 aspirin [Adult Low Dose Aspirin] 81 mg tablet,delayed release (DR/EC) 81 mg PO DAILY RF: 0 Caltrate 600-D Plus Minerals 600 mg calcium- 800 unit-50 mg tablet 1 tab PO DAILY RF: 0 Held amlodipine 5 mg tablet 1 tab PO DAILY RF: 0 Hold Instructions: Resume on 09/21/21. holding for low normal bp while anasthesia wears off and on pain meds, restart when bp elevated lisinopril-hydrochlorothiazide 20-12.5 mg tablet 1 tab PO DAILY RF: 0 Hold Instructions: Resume on 09/21/21. holding for low normal bp while anasthesia wears off and on pain meds, restart when bp elevated Discharge Orders: Discharge Order (Routine); Ordered 09/20/21 Ordered By: Brodie Hoff Diet: advance to usual diet Activity on Discharge: Use cane or walker Stand Alone Forms: Patient Portal Discharge page Care Plan Goals: recvoery Health Concerns: uti, hip fracture Plan of Treatment: Gait training, strengthening, ADLs Continue lovenox x 6 weeks Keep dressing clean,dry and intact-no showering or tub baths Follow up with Orthopedics in 2 weeks ceftin for 3 more days hodling bp meds for relatively low bp, can restart when bp goes back up Assessment: see above
[2021-09-20 09:45] LABS: COVID-19 Test Negative (Negative)
--- NOTE | 2021-09-20 11:44 | MHC.CM.PN ---
PATIENT AND RN AWARE OF [facility]ED OFFER FOR TODAY. PLAN IS [facility] TRANSPORT REQUEST FROM [facility] TO FACILITY.
[2021-09-20 11:56] VITALS: BP 113/64; PULSE 78; RESP 18; TEMP 37; O2SAT 98
[2021-09-20] MEDS: Enoxaparin Sodium 40 MG/0.4 ML SYRINGE SUBCUT (14:48)
== END 2021-09-20 15:35 | disposition skilled nursing facility (03) | DRG 481 ==
LOC: HO.ED 19:29 → HO.EDOVER 21:49 → HO.S3 09-18 13:31 → HO.EDOVER 09-18 13:46 → HO.S3 09-18 14:23
PROVIDERS: Orthopaedic Surgery; Physician Assistant; Admitting Provider Internal Medicine; Emergency Provider Emergency Medicine; PCP Internal Medicine; Visit Provider Internal Medicine
PROC: 0QS636Z Reposition Right Upper Femur with Intramedullary Internal Fixation Device, Percutaneous Approach (ICD-10-PCS; principal; 2021-09-18 14:30)
DX: S72.102A Unspecified trochanteric fracture of left femur, initial encounter for closed fracture (principal); N39.0 Urinary tract infection, site not specified; W22.8XXA Striking against or struck by other objects, initial encounter; Y93.9 Activity, unspecified; Y92.009 Unspecified place in unspecified non-institutional (private) residence as the place of occurrence of the external cause; E78.5 Hyperlipidemia, unspecified; I10 Essential (primary) hypertension; B96.20 Unspecified Escherichia coli [E. coli] as the cause of diseases classified elsewhere; I95.9 Hypotension, unspecified; I25.119 Atherosclerotic heart disease of native coronary artery with unspecified angina pectoris; Z20.822 Contact with and (suspected) exposure to COVID-19; Z88.5 Allergy status to narcotic agent; Z79.82 Long term (current) use of aspirin; Z79.899 Other long term (current) drug therapy
CPT/HCPCS: 36415; 71045; 73502; 80048; 80076; 81001; 81003; 83605; 83735; 84484; 85025; 85027; 85610; 85730; 86850; 86900; 86901; 87040; 87086; 87088; 87186; 87635; 93005; 97110; 97116; 97162; 97165; 97530; 99285; C1713; C1769; J0690; J0696; J1100; J1170; J1650; J2270; J2370; J2405; J3010

== ENCOUNTER 2021-10-05 06:17 | Outpatient (REF) | payer MEDICARE, SELFPAY ==
--- NOTE | ~2021-10-05 | XR_ITS ---
EXAMINATION: XR RIGHT HIP AND PELVIS CLINICAL INFORMATION: Right hip pain. COMPARISON: Right hip and pelvis done on 09/17/2021 TECHNIQUE: 2 views, 3 images of the right hip and single frontal view of the pelvis were obtained. FINDINGS: Interval placement of ORIF is noted at the site of the previously documented fracture involving the right hip as was seen on the study dated 09/17/2021. The hardware is intact. The alignments are intact. No evidence of any significant callus formation at the site of the previously documented fracture. The visualized part of the pelvis otherwise appear unremarkable. XR/XR pelvis 1-2V IMPRESSION: Interval placement of hardware is noted at the site of the previously documented right hip fracture showing intact hardware and satisfactory alignment. No new abnormalities.
--- NOTE | ~2021-10-05 | XR_ITS ---
EXAMINATION: XR RIGHT HIP AND PELVIS CLINICAL INFORMATION: Right hip pain. COMPARISON: Right hip and pelvis done on 09/17/2021 TECHNIQUE: 2 views, 3 images of the right hip and single frontal view of the pelvis were obtained. FINDINGS: Interval placement of ORIF is noted at the site of the previously documented fracture involving the right hip as was seen on the study dated 09/17/2021. The hardware is intact. The alignments are intact. No evidence of any significant callus formation at the site of the previously documented fracture. The visualized part of the pelvis otherwise appear unremarkable. XR/XR hip RT min 2V IMPRESSION: Interval placement of hardware is noted at the site of the previously documented right hip fracture showing intact hardware and satisfactory alignment. No new abnormalities.
== END 2021-10-05 06:18 | disposition home or self-care (01) ==
LOC: HO.HOSX 06:17
PROVIDERS: Visit Provider Physician Assistant
DX: S72.001D Fracture of unspecified part of neck of right femur, subsequent encounter for closed fracture with routine healing (principal)
CPT/HCPCS: 72170; 73502; 99212

== ENCOUNTER 2021-10-10 11:55 | Inpatient (IN) | payer MEDICARE, SELFPAY ==
[2021-10-10 12:11] VITALS: BP 125/67; BP 131/66; PULSE 69; RESP 18; TEMP 36.7; O2SAT 96; O2SAT 97; BMI 34.7
--- NOTE | 2021-10-10 12:49 | ED.WOUNDLAC ---
HPI - Wound/Laceration General Chief Complaint: Wound/Laceration Stated Complaint: HIP SURG SEPTEMBER, WOUND RED/SWELLING PER [facility] Time Seen by Provider: 10/10/21 12:15 Source: patient and EMS Mode of arrival: EMS Limitations: no limitations History of Present Illness HPI narrative: Patient comes emergency room complaining of an infected wound site. Patient had right hip fracture surgery on the right side on 09/19/2021. Patient states that today, the visiting nurse noticed that there was copious amount of pus draining from the surgical sites, instructed the patient's daughter to bring her to the emergency room. According to the patient's daughter, about 4 days ago, the patient started noticing redness around the surgical site. The next day, patient was started on Keflex by the patient's primary care physician. So far patient has had 7 doses. Two days ago, the family reports the patient had a temperature of 100.1 degrees, and chills. Related Data Home Medications Medication Instructions Recorded Confirmed calcium 600 mg-D3 800 unit-mag11 1 tab PO BID 08/29/20 10/10/[address]-xhdj-ejeucz-gabi-s.borat tablet (Caltrate 600-D Plus Minerals) Lactobacillus acidophilus 10 10,000 mmu cells PO BID 10/10/21 10/10/21 billion cell capsule (Probiotic) amlodipine 5 mg tablet 1 tab PO DAILY PRN 10/10/21 10/10/21 cephalexin 500 mg capsule 1 cap PO QID 10/10/21 10/10/21 enoxaparin 40 mg/0.4 mL 40 mg SUBCUT DAILY 10/10/21 10/10/21 subcutaneous syringe famotidine 20 mg tablet 20 mg PO BEDTIME 10/10/21 10/10/21 gabapentin 100 mg capsule 200 cap PO TID 10/10/21 10/10/21 hydrochlorothiazide 12.5 mg capsule 1 cap PO DAILY PRN 10/10/21 10/10/21 isosorbide mononitrate 30 mg 3 tab PO DAILY 10/10/21 10/10/21 tablet,extended release 24 hr lisinopril 20 mg tablet 1 tab PO DAILY PRN 10/10/21 10/10/21 multivitamin 1 tab PO DAILY 10/10/21 10/10/21 simvastatin 10 mg tablet 1 tab PO BEDTIME 10/10/21 10/10/21 Previous Rx's Medication Instructions Recorded metoprolol succinate 50 mg 50 mg PO DAILY #90 cap 10/04/20 tablet,extended release 24 hr raised toilet seat #1 ea 09/19/21 omeprazole 40 mg capsule,delayed 40 mg PO DAILY@0630 #0 cap 09/20/21 release oxycodone 5 mg tablet 5 mg PO Q6H PRN #10 tab 09/20/21 Allergies Allergy/AdvReac Type Severity Reaction Status Date / Time codeine [CODEINE] Allergy Intermediate RASH Verified 10/10/21 12:11 [facility] Past Medical History Medical History CAD (coronary artery disease) HTN (hypertension) Hyperlipidemia Surgical History Hx of cardiac cath (~2013) Hx of cholecystectomy Hx of hysterectomy Family History Family History Father Cancer Mother CHF (congestive heart failure) Social History Social History (Updated 10/05/21 @ 11:22 by Andrew Albert) Household Members: Spouse Housing: House Do you presently have visiting nurse or other home services: No Patient Tobacco Use Status: Never used Tobacco Advance Directives: Yes Advance Directives Information Provided: No Advance Directives on File: No service: No Current occupational status: retired 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 Physical Exam Vital Signs: Vital Signs: Last Vital Signs Temp 98.0 F 10/10/21 14:37 Pulse 67 10/10/21 14:37 Resp 14 10/10/21 14:37 BP 128/65 10/10/21 14:37 Pulse Ox 99 10/10/21 14:37 BMI result Body Mass Index 34.7 Course Course Course Narrative: 15:25 at this time, sepsis is not suspected. I discussed the labs and physical exam with KATELYNN Lynch from Orthopedics, patient will be admitted to the medicine service. At this time, sepsis is not suspected. Wound cultures pending. I discussed the patient with nurse practitioner Rahat, patient will be admitted, orthopedics will consult. MDM - Wound/Laceration Lab Data Result diagrams: 10/10/21 13:34 10/10/21 13:34 Labs: Lab Results 10/10/21 10/10/21 10/10/21 Range/Units 13:34 13:34 13:34 WBC 5.8 (4.8-10.8) X10*3/uL RBC 3.75 L (4.20-5.50) X10*6/uL Hgb 11.0 L (12.0-16.0) g/dl Hct 34.6 L (37.0-47.0) % MCV 92.3 (80.0-98.0) fL MCH 29.3 (27.0-33.0) pg MCHC 31.8 (31.0-35.0) g/dl RDW 13.4 (11.0-16.0) % Plt Count 366 D (160-400) X10*3/uL MPV 9.0 L (9.4-12.3) fL Immature Gran % (Auto) 0.3 (0.0-0.4) % Neut % (Auto) 60.0 (45-73) % Lymph % (Auto) 30.0 (20-40) % [place] % (Auto) 8.3 (2-11) % Eos % (Auto) 0.9 (0-4) % Baso % (Auto) 0.5 (0-2) % Lymph # (Auto) 1.7 (1.2-4.9) X10*3/uL [place] # (Auto) 0.5 (0.1-1.2) X10*3/uL Eos # (Auto) 0.1 (0.0-0.4) X10*3/uL Baso # (Auto) 0.0 (0.0-0.2) X10*3/uL Abs Immat Gran (auto) 0.02 (0.00-0.03) X10*3/uL Absolute Neuts (auto) 3.5 (2.0-8.3) x10*3/uL Absolute Nucleated RBC 0.000 (0.0-0.012) X10*3/uL Nucleated RBC % (auto) 0.0 (0.0-0.2) /100WBC ESR (0-20) MM/HR Sodium 140 (135-145) mmol/L Potassium 4.2 (3.3-5.1) mmol/L Chloride 104 (96-108) mmol/L Carbon Dioxide 28 (22-29) mmol/L Anion Gap 12 (12-20) BUN 16 (9-16) mg/dL Creatinine 0.79 (0.5-1.4) mg/dL Estim Creat Clear Calc 75.0 Estimated GFR > 60 Random Glucose 105 (60-115) mg/dL Lactic Acid 2.5 H* (0.5-2.0) mmol/L Calcium 9.3 D (8.4-10.2) mg/dL Total Bilirubin 0.5 (0.0-1.0) mg/dL Direct Bilirubin 0.2 (0.0-0.5) mg/dL AST 56 H (5-31) U/L ALT 66 H (0-31) U/L Alkaline Phosphatase 321 H D (39-117) U/L C-Reactive Protein 2.84 H (< or = 0.50) mg/dL Total Protein 6.7 (6.5-8.0) g/dL Albumin 3.8 (3.5-5.0) g/dL COVID-19 (FABIOLA) (Negative) COVID-19 Clin Com 10/10/21 10/10/21 Range/Units 13:34 13:34 WBC (4.8-10.8) X10*3/uL RBC (4.20-5.50) X10*6/uL Hgb (12.0-16.0) g/dl Hct (37.0-47.0) % MCV (80.0-98.0) fL MCH (27.0-33.0) pg MCHC (31.0-35.0) g/dl RDW (11.0-16.0) % Plt Count (160-400) X10*3/uL MPV (9.4-12.3) fL Immature Gran % (Auto) (0.0-0.4) % Neut % (Auto) (45-73) % Lymph % (Auto) (20-40) % [place] % (Auto) (2-11) % Eos % (Auto) (0-4) % Baso % (Auto) (0-2) % Lymph # (Auto) (1.2-4.9) X10*3/uL [place] # (Auto) (0.1-1.2) X10*3/uL Eos # (Auto) (0.0-0.4) X10*3/uL Baso # (Auto) (0.0-0.2) X10*3/uL Abs Immat Gran (auto) (0.00-0.03) X10*3/uL Absolute Neuts (auto) (2.0-8.3) x10*3/uL Absolute Nucleated RBC (0.0-0.012) X10*3/uL Nucleated RBC % (auto) (0.0-0.2) /100WBC ESR 49 H (0-20) MM/HR Sodium (135-145) mmol/L Potassium (3.3-5.1) mmol/L Chloride (96-108) mmol/L Carbon Dioxide (22-29) mmol/L Anion Gap (12-20) BUN (9-16) mg/dL Creatinine (0.5-1.4) mg/dL Estim Creat Clear Calc Estimated GFR Random Glucose (60-115) mg/dL Lactic Acid (0.5-2.0) mmol/L Calcium (8.4-10.2) mg/dL Total Bilirubin (0.0-1.0) mg/dL Direct Bilirubin (0.0-0.5) mg/dL AST (5-31) U/L ALT (0-31) U/L Alkaline Phosphatase (39-117) U/L C-Reactive Protein (< or = 0.50) mg/dL Total Protein (6.5-8.0) g/dL Albumin (3.5-5.0) g/dL COVID-19 (FABIOLA) Negative (Negative) COVID-19 Clin Com See Note Discharge Plan Discharge Clinical Impression: Surgical site infection Patient Disposition: Admitted As Inpatient
--- NOTE | 2021-10-10 13:17 | PHA.MEDREC ---
Pharmacy Consult ? Medication Reconciliation Pharmacy has completed the medication reconciliation. Spoke with patients daughter. Lisinopril, amlodipine, hydrochlorothiazide on hold due to low blood pressure. Patient started cephalexin on 10/08/21 in evening.
[2021-10-10 13:44] LABS: MANUAL DIFF FLAG NO
[2021-10-10 13:47] LABS: Basophils Percent Auto 0.5 % (0-2); Eosinophils Absolute Auto 0.1 X10*3/uL (0.0-0.4); Eosinophils Percent Auto 0.9 % (0-4); Hematocrit 34.6 % (37.0-47.0); Imm Gran Abs Auto 0.02 X10*3/uL (0.00-0.03); Imm Gran Pct Auto 0.3 % (0.0-0.4); Lymphocytes Absolute Auto 1.7 X10*3/uL (1.2-4.9); Mean Corpuscular HGB Conc 31.8 g/dl (31.0-35.0); Mean Corpuscular Hemoglobin 29.3 pg (27.0-33.0); Mean Corpuscular Volume 92.3 fL (80.0-98.0); Monocytes Absolute Auto 0.5 X10*3/uL (0.1-1.2); Monocytes Percent Auto 8.3 % (2-11); Neutrophils Absolute Auto 3.5 x10*3/uL (2.0-8.3); Platelet Count 366 X10*3/uL (160-400); Red Blood Count 3.75 X10*6/uL (4.20-5.50); Red Cell Distribution Width 13.4 % (11.0-16.0); White Blood Count 5.8 X10*3/uL (4.8-10.8)
[2021-10-10] MEDS: 0.9 % Sodium Chloride 1,000 ML 999 ML IVCONT (13:50)
[2021-10-10] MEDS: Piperacillin Sodium/Tazobactam 3.375 GM in 0.9 % Sodium Chloride 50 ML IV ×2 (13:50→21:07)
[2021-10-10] MEDS: Gabapentin 100 MG CAPSULE 200 MG PO ×2 (14:02→21:08)
[2021-10-10 14:05] LABS: Alanine Aminotransferase 66 U/L (0-31); Albumin Level 3.8 g/dL (3.5-5.0); Alkaline Phosphatase 321 U/L (39-117); Anion Gap 12 (12-20); Aspartate Amino Transferase 56 U/L (5-31); Bilirubin Direct 0.2 mg/dL (0.0-0.5); Bilirubin Total 0.5 mg/dL (0.0-1.0); Blood Urea Nitrogen 16 mg/dL (9-16); C Reactive Protein 2.84 mg/dL (< or = 0.50); Calcium 9.3 mg/dL (8.4-10.2); Carbon Dioxide 28 mmol/L (22-29); Chloride 104 mmol/L (96-108); Estimated Glomerular Filt Rate > 60; Glucose Random 105 mg/dL (60-115); Potassium 4.2 mmol/L (3.3-5.1); Sodium 140 mmol/L (135-145); Total Protein 6.7 g/dL (6.5-8.0)
[2021-10-10 14:06] LABS: COVID-19 Test Negative (Negative)
[2021-10-10 14:07] LABS: Lactic Acid 2.5 mmol/L (0.5-2.0)
[2021-10-10] MEDS: vancomycin HCL 1,250 MG in 0.9 % Sodium Chloride 250 ML 166.67 MG IV (14:17)
[2021-10-10 14:27] LABS: Erythrocyte Sedimentation Rate 49 MM/HR (0-20)
[2021-10-10 14:37] VITALS: BP 128/65; PULSE 67; RESP 14; TEMP 36.7; O2SAT 99
[2021-10-10 15:40] LABS: Reflex Lactate? Lactic Acid Added
--- NOTE | 2021-10-10 15:41 | P.HPHOSP_ITS ---
History of Present Illness Date of Service: 10/10/21 <Rosa Maria Giang NP - Last Filed: 10/10/21 17:40> Chief Complaint: Wound <Rosa Maria Giang NP - Last Filed: 10/10/21 17:40> 75 year old women status post right hip IMN on 09/18/21. According to her daughter the patient had her west removed last and since then has noticed some redness. She called her PCP office and was prescribed Keflex dinh corrine she continued to have redness and increased drainage from the incision site. She denied fever, chills, nausea, vomiting, diarrhea. She was seen by the visiting nurse and was told to come to the ED to have the wound evaluated. No sepsis criteria noted. She was given Vancomycin, zosyn. She will be admitted for management of surgical wound infection. <Rosa Maria Giang NP - Last Filed: 10/10/21 17:40> Review of Systems Review of Systems: Denies any recent fever chills or decrease in appetite respiratory denies any shortness of breath coverage production cardiovascular denies chest pain gastrointestinal denies any dysphagia abdominal pain nausea vomiting or diarrhea genitourinary denies any dysuria frequency or hematuria musculoskeletal right hip pain neuropsych denies any weakness or seizures all other systems reviewed are negative <Rosa Maria Giang NP - Last Filed: 10/10/21 17:40> [facility] Medical History: Medical History CAD (coronary artery disease) HTN (hypertension) Hyperlipidemia <Rosa Maria Giang NP - Last Filed: 10/10/21 17:40> Family History: Family History Father Cancer Mother CHF (congestive heart failure) <Rosa Maria Giang NP - Last Filed: 10/10/21 17:40> Surgical History: Surgical History Hx of cardiac cath (~2013) Hx of cholecystectomy Hx of hysterectomy <Rosa Maria Giang NP - Last Filed: 10/10/21 17:40> Social History: Social History (Updated 10/05/21 @ 11:22 by Andrew Albert) Household Members: Spouse Housing: House Do you presently have visiting nurse or other home services: No Alcohol intake: never Patient Tobacco Use Status: Never used Tobacco Use of substances other than those prescribed or required for medical reasons: No Advance Directives: Yes Advance Directives Information Provided: No Advance Directives on File: No service: No Current occupational status: retired 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 <Rosa Maria Giang NP - Last Filed: 10/10/21 17:40> Meds Allergies/Adverse reactions: Allergies Allergy/AdvReac Type Severity Reaction Status Date / Time codeine [CODEINE] Allergy Intermediate RASH Verified 10/10/21 12:11 <Rosa Maria Giang NP - Last Filed: 10/10/21 17:40> Active Medications: Current Medications Pharmacy Consult (Consult Rx Perform Med Rec) 1 each MISCELLANE ONCE PRN PRN Reason: Consult order <Rosa Maria Giang NP - Last Filed: 10/10/21 17:40> Home medications: Home Medications Medication Instructions Recorded Confirmed Last Taken Type calcium 600 mg-D3 800 unit-mag11 1 tab PO BID 08/29/20 10/10/21 10/10/21 History 50 qg-vihy-hoksix-gabi-s.borat tablet (Caltrate 600-D Plus Minerals) Lactobacillus acidophilus 10 10,000 mmu cells PO BID 10/10/21 10/10/21 10/10/21 History billion cell capsule (Probiotic) amlodipine 5 mg tablet 1 tab PO DAILY PRN 10/10/21 10/10/21 10/07/21 History cephalexin 500 mg capsule 1 cap PO QID 10/10/21 10/10/21 10/10/21 History enoxaparin 40 mg/0.4 mL 40 mg SUBCUT DAILY 10/10/21 10/10/21 10/10/21 History subcutaneous syringe famotidine 20 mg tablet 20 mg PO BEDTIME 10/10/21 10/10/21 10/09/21 History gabapentin 100 mg capsule 200 mg PO TID 10/10/21 10/10/21 10/10/21 History hydrochlorothiazide 12.5 mg capsule 1 cap PO DAILY PRN 10/10/21 10/10/21 10/07/21 History isosorbide mononitrate 30 mg 3 tab PO DAILY 10/10/21 10/10/21 10/10/21 History tablet,extended release 24 hr lisinopril 20 mg tablet 1 tab PO DAILY PRN 10/10/21 10/10/21 10/08/21 History multivitamin 1 tab PO DAILY 10/10/21 10/10/21 10/10/21 History simvastatin 10 mg tablet 1 tab PO BEDTIME 10/10/21 10/10/21 10/09/21 History <Rosa Maria Giang NP - Last Filed: 10/10/21 17:40> Physical Exam Vital Signs and Narrative: Vital Signs: Last Vital Signs Temp 98.0 F 10/10/21 14:37 Pulse 67 10/10/21 14:37 Resp 14 10/10/21 14:37 BP 128/65 10/10/21 14:37 Pulse Ox 99 10/10/21 14:37 BMI result Body Mass Index 34.7 <Rosa Maria Giang NP - Last Filed: 10/10/21 17:40> Appearing in no acute distress head is normocephalic atraumatic eyes pupils are PERRLA sclera is anicteric mouth throat mucous membranes are intact and moist neck is supple no lymphadenopathy, no JVD noted lung sounds are clear to auscultation heart regular rate rhythm, clear S1, S2 positive bowel sounds, abdomen is soft, nontender neuro patient is alert x3, no focal deficits Rght hip surgical wound with bandage not visualized <Rosa Maria Giang NP - Last Filed: 10/10/21 17:40> Results Labs CBC and Chem 7: : 10/10/21 13:34 10/10/21 13:34 <Rosa Maria Giang NP - Last Filed: 10/10/21 17:40> Labs: Laboratory Results - last 24 hr 10/10/21 10/10/21 10/10/21 13:34 13:34 13:34 MCV 92.3 MCH 29.3 MCHC 31.8 RDW 13.4 Plt Count 366 D MPV 9.0 L Immature Gran % (Auto) 0.3 Neut % (Auto) 60.0 Lymph % (Auto) 30.0 [place] % (Auto) 8.3 Eos % (Auto) 0.9 Baso % (Auto) 0.5 Lymph # (Auto) 1.7 [place] # (Auto) 0.5 Eos # (Auto) 0.1 Baso # (Auto) 0.0 Abs Immat Gran (auto) 0.02 Absolute Neuts (auto) 3.5 Absolute Nucleated RBC 0.000 Nucleated RBC % (auto) 0.0 ESR Anion Gap 12 Estim Creat Clear Calc 75.0 Estimated GFR > 60 Random Glucose 105 Lactic Acid 2.5 H* Calcium 9.3 D Total Bilirubin 0.5 Direct Bilirubin 0.2 AST 56 H ALT 66 H Alkaline Phosphatase 321 H D C-Reactive Protein 2.84 H Total Protein 6.7 Albumin 3.8 COVID-19 (FABIOLA) COVID-19 Clin Com 10/10/21 10/10/21 13:34 13:34 MCV MCH MCHC RDW Plt Count MPV Immature Gran % (Auto) Neut % (Auto) Lymph % (Auto) [place] % (Auto) Eos % (Auto) Baso % (Auto) Lymph # (Auto) [place] # (Auto) Eos # (Auto) Baso # (Auto) Abs Immat Gran (auto) Absolute Neuts (auto) Absolute Nucleated RBC Nucleated RBC % (auto) ESR 49 H Anion Gap Estim Creat Clear Calc Estimated GFR Random Glucose Lactic Acid Calcium Total Bilirubin Direct Bilirubin AST ALT Alkaline Phosphatase C-Reactive Protein Total Protein Albumin COVID-19 (FABIOLA) Negative COVID-19 Clin Com See Note <Rosa Maria Giang NP - Last Filed: 10/10/21 17:40> Assessment and Plan (1) Surgical site infection: Status: Acute <Rosa Maria Giang NP - Last Filed: 10/10/21 17:40> Plan 75 year old women admitted with infected surgical incision wound, s/p right hip IMN Infected surgical incision wound check wound and blood cx orthopedic surgery consult pain management vancomycin and zosyn for now Hypertension. stable BP Hold Blood pressure medications for now to avoid hypotension in the case that the patient needs to have hardware removed. Transaminitis likely secondary to infection follow BMP GERD PPI DVT prophylaxis with Lovenox Attending Dr. Boswell full code <Rosa Maria Giang NP - Last Filed: 10/10/21 17:40> 75 year old women admitted with infected surgical incision wound, s/p right hip IMN Infected surgical incision wound check wound and blood cx orthopedic surgery consult pain management vancomycin and zosyn for now Hypertension. stable BP Hold Blood pressure medications for now to avoid hypotension in the case that the patient needs to have hardware removed. Transaminitis likely secondary to infection follow BMP GERD PPI DVT prophylaxis with Lovenox Attending Dr. Boswell full code patient seen examined independently in the emergency room patient presented to emergency room due to redness and drainage from right hip incision status post recent right hip surgery 09/18 will resume statin, metoprolol and Imdur with underlying history of angina at present patient denies any chest discomfort patient on multiple antihypertensive including amlodipine, lisinopril and hydrochlorothiazide will hold current medication follow BP closely continue IV antibiotics vancomycin and Zosyn surgical wound infection, will discuss further treatment plan with Ortho. <Drake Boswell MD - Last Filed: 10/10/21 18:44> Quality Stroke Does the patient have a stroke diagnosis?: No <Rosa Maria Giang NP - Last Filed: 10/10/21 17:40> VTE Prior VTE?: No <Rosa Maria Giang NP - Last Filed: 10/10/21 17:40> VTE Risk Level:: Medical - moderate - high <Rosa Maria Giang NP - Last Filed: 10/10/21 17:40> VTE Device Contraindication: Treatment Not Indicated <Rosa Maria Giang NP - Last Filed: 10/10/21 17:40> VTE Drug Contraindication: N/A - Med Ordered <Rosa Maria Giang NP - Last Filed: 10/10/21 17:40>
--- NOTE | 2021-10-10 15:44 | PC.NURSE ---
reports improvement in pain in right hip. has been ambulatory with walker with assist. IV ABX infusing. family aware of plan for admission.
[2021-10-10 16:48] VITALS: BP 116/55; PULSE 85; RESP 18; TEMP 36.9; O2SAT 98
[2021-10-10 18:00] VITALS: BP 126/62; PULSE 73; RESP 14; TEMP 37.2; O2SAT 97
--- NOTE | 2021-10-10 18:46 | PHA.PROG ---
Admission Date/Time: October 10, 2021 16:58 Indication: SKIN AND SKIN STRUCTURE Weight in k.698 kg Adjusted body weight in Kg: [place] body weight in K.6 Obesity Dosing Indication % IBW: Serum Creatinine - Last 168 Hours 10/10/21 13:34 Creatinine 0.79 Estimated CrCl and GFR - Last 168 Hours 10/10/21 13:34 Estim Creat Clear Calc 75.0 Estimated GFR > 60 Vancomycin Loading Dose: 2000 MG (GIVEN 1250 MG AND ADDITIONAL 750 MG) Current Vancomycin Dosing Regimen:2 GM LOAD, THEN 1250 MG Q 24 HOURS Vancomycin Monitoring using AUC goal of 400 - 600 range with trough as surrogate marker: Date and Time for next Vancomycin Level to be drawn: Pharmacist Comments on Vancomycin Plan:PREDICTED AUC 432 Vancomycin dosing will take advantage of [employer] as a clinical decision support tool that uses Bayesian modeling to calculate individual patient's pharmacokinetic parameters and forecast the patient's drug concentration time course with the target goal AUC 24 range of 400 - 600 mg/L/hr.
--- NOTE | 2021-10-10 18:46 | PC.NURSE ---
resting quietly. [employer] to retrieve hospital bed.
--- NOTE | 2021-10-10 19:15 | PC.NURSE ---
pt medicated as per emar. pt wakes to voice, respirations easy, n/l. skin w/d. will continue to monitor pt.
--- NOTE | 2021-10-10 19:50 | PM.CNOR ---
History of Present Illness HPI Consult date: 10/10/21 Chief complaint: Surgical wound incision Narrative: Ms Nagy is a 75 yo female who is known to me from previous Right hip surgery on 09/18/[address] Aleman. I saw her in the office on 10/05/21 for her first post op appt. She had her west removed. At that visit, her incision was clean, dry and intact. There was some redness around the west which appeared to be normal skin irritation. She did not demonstrate any type of increased pain to the right hip incision area, denied fever or chills, denies recent illness. The west were removed that day and steri strips were applied. She states the following day, 10/06/21, she noticed bleeding/drainage along the incision which went through her steri strips. A nurse from [facility] was at her house ad performed dressing changes, which she continued to bleed through. Her BP was also noticeably low, so they called her PCP who adjusted her BP meds. While speaking to the PCP, they mentioned the concern for surgical wound and he was agreeable to prescribe Keflex PO. She states she picked up the rx on Saturday, and took 6 doses thus far without any improvement. Upon arrival to the ED, she had copious amounts of purulant discharge from both right hip surgical sites. Labs showed a White count 5.8, ESR 49, Lactic acid 2.5, CR-P 2.84. Afebrile at 98.9. Cultres pending. She was admitted to the medical service and orthopedics was consulted for further recommendations. Review of Systems Review of Systems: As per [facility] Past Medical History Medical History CAD (coronary artery disease) HTN (hypertension) Hyperlipidemia Family History Family History Father Cancer Mother CHF (congestive heart failure) Surgical History Surgical History Hx of cardiac cath (~2013) Hx of cholecystectomy Hx of hysterectomy Social History Social History (Updated 10/05/21 @ 11:22 by Andrew Albert) Household Members: Spouse Housing: House Do you presently have visiting nurse or other home services: No Alcohol intake: never Patient Tobacco Use Status: Never used Tobacco Use of substances other than those prescribed or required for medical reasons: No Advance Directives: Yes Advance Directives Information Provided: No Advance Directives on File: No service: No Current occupational status: retired 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 Meds Allergies Allergy/AdvReac Type Severity Reaction Status Date / Time codeine [CODEINE] Allergy Intermediate RASH Verified 10/10/21 12:11 Active Medications: Current Medications Acetaminophen (Acetaminophen 325 Mg Tablet) 650 mg PO Q6H PRN PRN Reason: Pain, Mild (Pain Scale 1-3) Atorvastatin Calcium (Atorvastatin Calcium 10 Mg Tablet) 10 mg PO DAILY [facility] Enoxaparin Sodium (Enoxaparin Sodium 40 Mg/0.4 Ml Syringe) 40 mg SUBCUT DAILY [facility] Famotidine (Famotidine 20 Mg Tablet) 20 mg PO BEDTIME [facility] Gabapentin (Gabapentin 100 Mg Capsule) 200 mg PO TID [facility] Piperacillin Sod/Tazobactam (Sod 3.375 gm/ Sodium Chloride) 50 mls @ 100 mls/hr IV Q6H [facility] Vancomycin HCl 1,250 mg/ (Sodium Chloride) 250 mls @ 166.667 mls/hr IV Q24H [facility] Isosorbide Mononitrate (Isosorbide Mononitrate 30 Mg Tab.Er.24h) 90 mg PO DAILY [facility]; Protocol Metoprolol Succinate (Metoprolol Succinate Er 50 Mg Tab.Er.24h) 50 mg PO DAILY [facility]; Protocol Multivitamins/Vitamin C (Multivitamin Tablet) 1 tab PO DAILY [facility] Omeprazole (Omeprazole 40 Mg Capsule.Dr) 40 mg PO DAILY@0630 [facility] Ondansetron HCl (Ondansetron Hcl 4 Mg/2 Ml Vial) 4 mg IVPUSH Q8H PRN PRN Reason: Nausea and Vomiting Oxycodone HCl (Oxycodone Hcl Immed Release 5 Mg Tablet) 5 mg PO Q6H PRN PRN Reason: Pain, Severe (Pain Scale 7-10) Pharmacy Consult (Consult Rx Perform Med Rec) 1 each MISCELLANE ONCE PRN PRN Reason: Consult order Pharmacy Consult (Consult Rx Vancomycin Dosing) 1 each MISCELLANE DAILY PRN PRN Reason: Consult order Sodium Chloride (0.9 % Sodium Chloride Flush 3 Ml Syringe) [facility] Medications Medication Instructions Recorded Confirmed Last Taken Type calcium 600 mg-D3 800 unit-mag11 1 tab PO BID 08/29/20 10/10/21 10/10/21 History 50 yu-[id number]-cribiw-gabi-s.borat tablet (Caltrate 600-D Plus Minerals) Lactobacillus acidophilus 10 10,000 mmu cells PO BID 10/10/21 10/10/21 10/10/21 History billion cell capsule (Probiotic) amlodipine 5 mg tablet 1 tab PO DAILY PRN 10/10/21 10/10/21 10/07/21 History cephalexin 500 mg capsule 1 cap PO QID 10/10/21 10/10/21 10/10/21 History enoxaparin 40 mg/0.4 mL 40 mg SUBCUT DAILY 10/10/21 10/10/21 10/10/21 History subcutaneous syringe famotidine 20 mg tablet 20 mg PO BEDTIME 10/10/21 10/10/21 10/09/21 History gabapentin 100 mg capsule 200 mg PO TID 10/10/21 10/10/21 10/10/21 History hydrochlorothiazide 12.5 mg capsule 1 cap PO DAILY PRN 10/10/21 10/10/21 10/07/21 History isosorbide mononitrate 30 mg 3 tab PO DAILY 10/10/21 10/10/21 10/10/21 History tablet,extended release 24 hr lisinopril 20 mg tablet 1 tab PO DAILY PRN 10/10/21 10/10/21 10/08/21 History multivitamin 1 tab PO DAILY 10/10/21 10/10/21 10/10/21 History simvastatin 10 mg tablet 1 tab PO BEDTIME 10/10/21 10/10/21 10/09/21 History Physical Exam Vital Signs: Vital Signs: Last Vital Signs Temp 98.9 F 10/10/21 18:00 Pulse 73 10/10/21 18:00 Resp 14 10/10/21 18:00 BP 126/62 10/10/21 18:00 Pulse Ox 97 10/10/21 18:00 BMI result Body Mass Index 34.7 Const: General: cooperative, healthy appearing, comfortable and no acute distress Extrem: Other: Right hip surgical incisions have openings with copious amounts of purulent discharged which can be expressed. She has tenderness to palpation. Results Labs Result Diagrams: 10/10/21 13:34 10/10/21 13:34 Labs: Abnormal lab results 10/10/21 10/10/21 10/10/21 Range/Units 13:34 13:34 13:34 RBC 3.75 L (4.20-5.50) X10*6/uL Hgb 11.0 L (12.0-16.0) g/dl Hct 34.6 L (37.0-47.0) % MPV 9.0 L (9.4-12.3) fL ESR (0-20) MM/HR Lactic Acid 2.5 H* (0.5-2.0) mmol/L AST 56 H (5-31) U/L ALT 66 H (0-31) U/L Alkaline Phosphatase 321 H D (39-117) U/L C-Reactive Protein 2.84 H (< or = 0.50) mg/dL 10/10/21 Range/Units 13:34 RBC (4.20-5.50) X10*6/uL Hgb (12.0-16.0) g/dl Hct (37.0-47.0) % MPV (9.4-12.3) fL ESR 49 H (0-20) MM/HR Lactic Acid (0.5-2.0) mmol/L AST (5-31) U/L ALT (0-31) U/L Alkaline Phosphatase (39-117) U/L C-Reactive Protein (< or = 0.50) mg/dL H & H 10/10/21 Range/Units 13:34 Hgb 11.0 L (12.0-16.0) g/dl Hct 34.6 L (37.0-47.0) % All other labs normal. Assessment and Plan (1) Surgical site infection: Status: Acute Plan At this time we are going to have her continue with IV abx to see how she responds over the next 12-24 hours. If there continues to be copious amounts of discharge, there is potential for bed side I&D to express the area and clean it out. If she improves on IV abx, no further intervention will be warranted. Will continue to follow. Procedures Date of Service Date of Service: 10/10/21
[2021-10-10] MEDS: vancomycin HCL 750 MG in 0.9 % Sodium Chloride 250 ML 265 MG IV (21:08)
[2021-10-10] MEDS: Famotidine 20 MG TABLET PO (21:08)
[2021-10-11] MEDS: Piperacillin Sodium/Tazobactam 3.375 GM in 0.9 % Sodium Chloride 50 ML IV ×4 (01:53→19:22)
--- NOTE | 2021-10-11 02:55 | PC.NURSE ---
Moved recliner into room for Daughter, Roxanne. can spend the night next to pt for comfort and safety. pt resting in stretcher in nad. pt awakes to voice and denies any complaints at this time. shailesh continue to monitor pt.
--- NOTE | 2021-10-11 03:25 | PC.NURSE ---
pt sleeping in NAD. respirations easy, n/l. skin w/d. pt awaiting for further orders. will continue to monitor pt.
[2021-10-11] MEDS: Omeprazole 40 MG CAPSULE.DR PO (06:25)
[2021-10-11 07:37] LABS: MANUAL DIFF FLAG NO
[2021-10-11 07:41] LABS: Basophils Absolute Auto 0.1 X10*3/uL (0.0-0.2); Basophils Percent Auto 0.9 % (0-2); Eosinophils Absolute Auto 0.1 X10*3/uL (0.0-0.4); Eosinophils Percent Auto 1.6 % (0-4); Imm Gran Abs Auto 0.02 X10*3/uL (0.00-0.03); Imm Gran Pct Auto 0.4 % (0.0-0.4); Lymphocytes Percent Auto 35.7 % (20-40); Mean Corpuscular HGB Conc 32.4 g/dl (31.0-35.0); Mean Corpuscular Hemoglobin 29.6 pg (27.0-33.0); Mean Corpuscular Volume 91.4 fL (80.0-98.0); Mean Platelet Volume 9.1 fL (9.4-12.3); Monocytes Absolute Auto 0.5 X10*3/uL (0.1-1.2); Monocytes Percent Auto 8.8 % (2-11); Neutrophils Absolute Auto 2.9 x10*3/uL (2.0-8.3); Neutrophils Percent Auto 52.6 % (45-73); Platelet Count 362 X10*3/uL (160-400); Red Blood Count 3.72 X10*6/uL (4.20-5.50); Red Cell Distribution Width 13.4 % (11.0-16.0); White Blood Count 5.6 X10*3/uL (4.8-10.8)
[2021-10-11 08:04] LABS: Anion Gap 13 (12-20); Blood Urea Nitrogen 13 mg/dL (9-16); Calcium 9.4 mg/dL (8.4-10.2); Carbon Dioxide 25 mmol/L (22-29); Chloride 107 mmol/L (96-108); Estimated Glomerular Filt Rate > 60; Glucose Random 87 mg/dL (60-115); Potassium 4.4 mmol/L (3.3-5.1); Sodium 141 mmol/L (135-145)
[2021-10-11 08:06] LABS: Alanine Aminotransferase 71 U/L (0-31); Albumin Level 3.7 g/dL (3.5-5.0); Alkaline Phosphatase 354 U/L (39-117); Aspartate Amino Transferase 61 U/L (5-31); Bilirubin Direct 0.2 mg/dL (0.0-0.5); Bilirubin Total 0.6 mg/dL (0.0-1.0); Total Protein 6.6 g/dL (6.5-8.0)
[2021-10-11] MEDS: Gabapentin 100 MG CAPSULE 200 MG PO ×3 (09:08→20:51)
[2021-10-11] MEDS: Multivitamin TABLET 1 TAB PO (09:08)
[2021-10-11] MEDS: Enoxaparin Sodium 40 MG/0.4 ML SYRINGE SUBCUT (09:08)
[2021-10-11] MEDS: Metoprolol Succinate ER 50 MG TAB.ER.24H PO (09:09)
[2021-10-11] MEDS: Isosorbide Mononitrate 30 MG TAB.ER.24H 90 MG PO (09:09)
[2021-10-11] MEDS: 0.9 % Sodium Chloride Flush 3 ML SYRINGE IVFLUSH ×2 (09:09→15:20)
[2021-10-11] MEDS: Atorvastatin Calcium 10 MG TABLET PO (09:09)
[2021-10-11 09:10] VITALS: BP 130/47; PULSE 72; RESP 16; TEMP 37.1; O2SAT 98
[2021-10-11] MEDS: Acetaminophen 325 MG TABLET 650 MG PO (09:13)
--- NOTE | 2021-10-11 09:14 | PM.PNORT ---
Subjective Subjective Date of Service: 10/11/21 Interval history: Day 1 Left hip superficial surgical site infection s/p IMN 09/18/21 She states she has been out of bed walking to the bathroom pain is tolerable denies fever or chills Physical Exam Vital Signs: Vital Signs: Last Vital Signs Temp 98.8 F 10/11/21 09:10 Pulse 72 10/11/21 09:10 Resp 16 10/11/21 09:10 BP 130/47 L 10/11/21 09:10 Pulse Ox 98 10/11/21 09:10 BMI result Body Mass Index 34.7 Extrem: Other: Right hip surgical incisions have openings with copious amounts of purulent discharged which can be expressed. She has tenderness to palpation. Procedures Date of Service Date of Service: 10/11/21 Progress Note: A&P Assessment and plan (1) Surgical site infection: Status: Acute Assessment and Plan: Will continue to monitor infection with IV abx-would like to keep area open so it can drain. Should perform warm compresses and flushing. Daily dressing changes. Will continue to follow Fall Risk Details Current Medications: Current Medications Acetaminophen (Acetaminophen 325 Mg Tablet) 650 mg PO Q6H PRN PRN Reason: Pain, Mild (Pain Scale 1-3) Last Admin: 10/11/21 09:13 Dose: 650 mg Documented by: Atorvastatin Calcium (Atorvastatin Calcium 10 Mg Tablet) 10 mg PO DAILY [facility] Last Admin: 10/11/21 09:09 Dose: 10 mg Documented by: Enoxaparin Sodium (Enoxaparin Sodium 40 Mg/0.4 Ml Syringe) 40 mg SUBCUT DAILY [facility] Last Admin: 10/11/21 09:08 Dose: 40 mg Documented by: Famotidine (Famotidine 20 Mg Tablet) 20 mg PO BEDTIME [facility] Last Admin: 10/10/21 21:08 Dose: 20 mg Documented by: Gabapentin (Gabapentin 100 Mg Capsule) 200 mg PO TID [facility] Last Admin: 10/11/21 09:08 Dose: 200 mg Documented by: Piperacillin Sod/Tazobactam (Sod 3.375 gm/ Sodium Chloride) 50 mls @ 100 mls/hr IV Q6H [facility] Last Admin: 10/11/21 06:24 Dose: 100 mls/hr Documented by: Vancomycin HCl 1,250 mg/ (Sodium Chloride) 250 mls @ 166.667 mls/hr IV Q24H [facility] Isosorbide Mononitrate (Isosorbide Mononitrate 30 Mg Tab.Er.24h) 90 mg PO DAILY [facility]; Protocol Last Admin: 10/11/21 09:09 Dose: 90 mg Documented by: Metoprolol Succinate (Metoprolol Succinate Er 50 Mg Tab.Er.24h) 50 mg PO DAILY [facility]; Protocol Last Admin: 10/11/21 09:09 Dose: 50 mg Documented by: Multivitamins/Vitamin C (Multivitamin Tablet) 1 tab PO DAILY [facility] Last Admin: 10/11/21 09:08 Dose: 1 tab Documented by: Omeprazole (Omeprazole 40 Mg Capsule.Dr) 40 mg PO DAILY@0630 [facility] Last Admin: 10/11/21 06:25 Dose: 40 mg Documented by: Ondansetron HCl (Ondansetron Hcl 4 Mg/2 Ml Vial) 4 mg IVPUSH Q8H PRN PRN Reason: Nausea and Vomiting Oxycodone HCl (Oxycodone Hcl Immed Release 5 Mg Tablet) 5 mg PO Q6H PRN PRN Reason: Pain, Severe (Pain Scale 7-10) Pharmacy Consult (Consult Rx Perform Med Rec) 1 each MISCELLANE ONCE PRN PRN Reason: Consult order Pharmacy Consult (Consult Rx Vancomycin Dosing) 1 each MISCELLANE DAILY PRN PRN Reason: Consult order Sodium Chloride (0.9 % Sodium Chloride Flush 3 Ml Syringe) 3 ml IVFLUSH QSHIFT [facility] Last Admin: 10/11/21 09:09 Dose: 3 ml Documented by: Time Spent With Patient Time: Total time spent is greater than 50% in coordination of care (as documented) at patient's floor/unit and/or counseling patient: Time with patient: less than 15 minutes Quality Stroke Does the patient have a stroke diagnosis?: No VTE Prior VTE?: No VTE Risk Level:: Medical - moderate - high VTE Device Contraindication: Treatment Not Indicated VTE Drug Contraindication: N/A - Med Ordered
--- NOTE | 2021-10-11 09:46 | PHA.PROG ---
Admission Date/Time: October 10, 2021 16:58 Indication: SKIN AND SKIN STRUCTURE Weight in k.698 kg Adjusted body weight in Kg: [place] body weight in K.6 Obesity Dosing Indication % IBW: 162 % Serum Creatinine - Last 168 Hours 10/10/21 10/11/21 13:34 07:16 Creatinine 0.79 0.80 Estimated CrCl and GFR - Last 168 Hours 10/10/21 10/11/21 13:34 07:16 Estim Creat Clear Calc 75.0 74.0 Estimated GFR > 60 > 60 Vancomycin Loading Dose: 2000 MG (GIVEN 1250 MG AND ADDITIONAL 750 MG) Current Vancomycin Dosing Regimen: 1250 MG Q 24 HOURS Date and Time for next Vancomycin Level to be drawn: 10/12 @ 1700 Pharmacist Comments on Vancomycin Plan: Renal function stable Continue same regimen Pharmacy to monitor renal fucntion daily Vancomycin dosing will take advantage of [employer] as a clinical decision support tool that uses Bayesian modeling to calculate individual patient's pharmacokinetic parameters and forecast the patient's drug concentration time course with the target goal AUC 24 range of 400 - 600 mg/L/hr.
--- NOTE | 2021-10-11 10:06 | HO.PM.IMPN ---
Subjective Subjective Date of Service: 10/11/21 Interval History: Complaining of soreness right hip,after ambulating to bathroom, denies fever, chills, tolerating diet , no nausea, no vomiting, no other acute overnight issues, slept well. denies chest pain, no shortness of breath, no palpitation. Review of Systems Review of Systems: Yes all other systems are reviewed and are negative Physical Exam Vital Signs: Vital Signs: Last Vital Signs Temp 98.8 F 10/11/21 09:10 Pulse 72 10/11/21 09:10 Resp 16 10/11/21 09:10 BP 130/47 L 10/11/21 09:10 Pulse Ox 98 10/11/21 09:10 BMI result Body Mass Index 34.7 Const: Other: General: AXO X 3, no acute distress neck no JVD Resp:? CTA bilateral, no accessory muscles used CVS: S1,S2,RRR GI: soft, non tender, non distended right hip dressing in place, just changed by Ortho no drainage noted Neuro:? motor grossly intact, alert Psych: appropriate affect, appropriate insight? Objective Data Active Medications Acetaminophen (Acetaminophen 325 Mg Tablet) 650 mg PO Q6H PRN PRN Reason: Pain, Mild (Pain Scale 1-3) Last Admin: 10/11/21 09:13 Dose: 650 mg Documented by: EVA Atorvastatin Calcium (Atorvastatin Calcium 10 Mg Tablet) 10 mg PO DAILY [facility] Last Admin: 10/11/21 09:09 Dose: 10 mg Documented by: EVA Enoxaparin Sodium (Enoxaparin Sodium 40 Mg/0.4 Ml Syringe) 40 mg SUBCUT DAILY [facility] Last Admin: 10/11/21 09:08 Dose: 40 mg Documented by: EVA Famotidine (Famotidine 20 Mg Tablet) 20 mg PO BEDTIME [facility] Last Admin: 10/10/21 21:08 Dose: 20 mg Documented by: FENG Gabapentin (Gabapentin 100 Mg Capsule) 200 mg PO TID [facility] Last Admin: 10/11/21 09:08 Dose: 200 mg Documented by: EVA Piperacillin Sod/Tazobactam (Sod 3.375 gm/ Sodium Chloride) 50 mls @ 100 mls/hr IV Q6H [facility] Last Admin: 10/11/21 06:24 Dose: 100 mls/hr Documented by: FENG Vancomycin HCl 1,250 mg/ (Sodium Chloride) 250 mls @ 166.667 mls/hr IV Q24H [facility] Isosorbide Mononitrate (Isosorbide Mononitrate 30 Mg Tab.Er.24h) 90 mg PO DAILY [facility]; Protocol Last Admin: 10/11/21 09:09 Dose: 90 mg Documented by: [facility]A Metoprolol Succinate (Metoprolol Succinate Er 50 Mg Tab.Er.24h) 50 mg PO DAILY [facility]; Protocol Last Admin: 10/11/21 09:09 Dose: 50 mg Documented by: [facility] Multivitamins/Vitamin C (Multivitamin Tablet) 1 tab PO DAILY [facility] Last Admin: 10/11/21 09:08 Dose: 1 tab Documented by: [facility]A Omeprazole (Omeprazole 40 Mg Capsule.Dr) 40 mg PO DAILY@0630 [facility] Last Admin: 10/11/21 06:25 Dose: 40 mg Documented by: FENG Ondansetron HCl (Ondansetron Hcl 4 Mg/2 Ml Vial) 4 mg IVPUSH Q8H PRN PRN Reason: Nausea and Vomiting Oxycodone HCl (Oxycodone Hcl Immed Release 5 Mg Tablet) 5 mg PO Q6H PRN PRN Reason: Pain, Severe (Pain Scale 7-10) Pharmacy Consult (Consult Rx Perform Med Rec) 1 each MISCELLANE ONCE PRN PRN Reason: Consult order Pharmacy Consult (Consult Rx Vancomycin Dosing) 1 each MISCELLANE DAILY PRN PRN Reason: Consult order Sodium Chloride (0.9 % Sodium Chloride Flush 3 Ml Syringe) 3 ml IVFLUSH QSHIFT [facility] Last Admin: 10/11/21 09:09 Dose: 3 ml Documented by: EVA Labs CBC & Chem 7: 10/11/21 07:16 10/11/21 07:16 Labs: Laboratory Results - last 24 hr 10/10/21 10/10/21 10/10/21 13:34 13:34 13:34 MCV 92.3 MCH 29.3 MCHC 31.8 RDW 13.4 Plt Count 366 D MPV 9.0 L Immature Gran % (Auto) 0.3 Neut % (Auto) 60.0 Lymph % (Auto) 30.0 Meagher % (Auto) 8.3 Eos % (Auto) 0.9 Baso % (Auto) 0.5 Lymph # (Auto) 1.7 Meagher # (Auto) 0.5 Eos # (Auto) 0.1 Baso # (Auto) 0.0 Abs Immat Gran (auto) 0.02 Absolute Neuts (auto) 3.5 Absolute Nucleated RBC 0.000 Nucleated RBC % (auto) 0.0 ESR Anion Gap 12 Estim Creat Clear Calc 75.0 Estimated GFR > 60 Random Glucose 105 Lactic Acid 2.5 H* Lactic Acid F/U @ 2Hr Calcium 9.3 D Total Bilirubin 0.5 Direct Bilirubin 0.2 AST 56 H ALT 66 H Alkaline Phosphatase 321 H D C-Reactive Protein 2.84 H Total Protein 6.7 Albumin 3.8 COVID-19 ([facility]A) [employer] 10/10/21 10/10/21 10/10/21 13:34 13:34 16:51 MCV MCH MCHC RDW Plt Count MPV Immature Gran % (Auto) Neut % (Auto) Lymph % (Auto) Meagher % (Auto) Eos % (Auto) Baso % (Auto) Lymph # (Auto) Meagher # (Auto) Eos # (Auto) Baso # (Auto) Abs Immat Gran (auto) Absolute Neuts (auto) Absolute Nucleated RBC Nucleated RBC % (auto) ESR 49 H Anion Gap Estim Creat Clear Calc Estimated GFR Random Glucose Lactic Acid Lactic Acid F/U @ 2Hr 1.0 Calcium Total Bilirubin Direct Bilirubin AST ALT Alkaline Phosphatase C-Reactive Protein Total Protein Albumin COVID-19 (FABIOLA) Negative COVID-19 [employer] Com See Note 10/11/21 10/11/21 10/11/21 07:16 07:16 07:16 MCV 91.4 MCH 29.6 MCHC 32.4 RDW 13.4 Plt Count 362 MPV 9.1 L Immature Gran % (Auto) 0.4 Neut % (Auto) 52.6 Lymph % (Auto) 35.7 Meagher % (Auto) 8.8 Eos % (Auto) 1.6 Baso % (Auto) 0.9 Lymph # (Auto) 2.0 Meagher # (Auto) 0.5 Eos # (Auto) 0.1 Baso # (Auto) 0.1 Abs Immat Gran (auto) 0.02 Absolute Neuts (auto) 2.9 Absolute Nucleated RBC 0.000 Nucleated RBC % (auto) 0.0 ESR Anion Gap 13 Estim Creat Clear Calc 74.0 Estimated GFR > 60 Random Glucose 87 Lactic Acid Lactic Acid F/U @ 2Hr Calcium 9.4 Total Bilirubin 0.6 Direct Bilirubin 0.2 AST 61 H ALT 71 H Alkaline Phosphatase 354 H C-Reactive Protein Total Protein 6.6 Albumin 3.7 COVID-19 ([facility]) COVID-19 Clin Com Microbiology Microbiology Results: Microbiology 10/10/21 16:24 Gram Stain - Final Hip - Hip Routine Culture - Final 10/10/21 15:43 Gram Stain - Final Hip Right Assessment and Plan (1) Surgical site infection: Status: Acute (2) CAD (coronary artery disease): Status: Acute (3) HTN (hypertension): Status: Acute (4) Hyperlipidemia: Status: Acute Plan 75-year-old female with past medical history of CAD as well as hypertension Status post recent right hip surgery presented to [facility] due to right hip pain with drainage from incision site. Infected surgical incision status post recent right hip surgery IMN 09/18/21 continue IV vancomycin and zosyn day 2 no evidence of sepsis normal WBC count no fevers blood cultures x2 pending seen by orthopedic surgeon ,wound culture sent, follow result, they recommend to continue IV antibiotic treatment and daily dressings. continue pain medication/ supportive care Hypertension. stable BP continue metoprolol and Imdur, continue to hold amlodipine, lisinopril and hydrochlorothiazide hyperlipidemia continue statin history of coronary artery disease no chest discomfort, no palpitation continue statins and metoprolol. GERD On Prilosec DVT prophylaxis with Lovenox code status full code Quality Stroke Does the patient have a stroke diagnosis?: No VTE Prior VTE?: No VTE Risk Level:: Medical - moderate - high VTE Device Contraindication: Treatment Not Indicated VTE Drug Contraindication: N/A - Med Ordered
[2021-10-11 10:49] VITALS: BP 112/61; PULSE 76; RESP 20; TEMP 36.3; O2SAT 98
[2021-10-11 15:33] VITALS: BP 115/58; PULSE 69; RESP 18; TEMP 37; O2SAT 96
[2021-10-11] MEDS: vancomycin HCL 1,250 MG in 0.9 % Sodium Chloride 250 ML 166.67 MG IV (17:44)
[2021-10-11 19:28] VITALS: BP 114/60; PULSE 69; RESP 18; TEMP 37.1; O2SAT 95
[2021-10-11] MEDS: Famotidine 20 MG TABLET PO (20:51)
[2021-10-11] MEDS: traZODone HCL 25 MG HALFTAB PO (21:19)
[2021-10-11 22:59] VITALS: BP 122/58; PULSE 63; RESP 18; TEMP 36.7; O2SAT 95
[2021-10-12] MEDS: Piperacillin Sodium/Tazobactam 3.375 GM in 0.9 % Sodium Chloride 50 ML IV ×2 (01:11→06:36)
[2021-10-12] MEDS: 0.9 % Sodium Chloride Flush 3 ML SYRINGE IVFLUSH ×4 (01:16→21:52)
[2021-10-12 03:22] VITALS: BP 144/66; PULSE 67; RESP 18; TEMP 36.7; O2SAT 96
[2021-10-12] MEDS: Omeprazole 40 MG CAPSULE.DR PO (06:37)
[2021-10-12 07:44] VITALS: BP 142/71; PULSE 66; RESP 20; TEMP 36.7; O2SAT 97
[2021-10-12] MEDS: Enoxaparin Sodium 40 MG/0.4 ML SYRINGE SUBCUT (07:51)
[2021-10-12] MEDS: Atorvastatin Calcium 10 MG TABLET PO (07:52)
[2021-10-12] MEDS: Isosorbide Mononitrate 30 MG TAB.ER.24H 90 MG PO (07:52)
[2021-10-12] MEDS: Metoprolol Succinate ER 50 MG TAB.ER.24H PO (07:53)
[2021-10-12] MEDS: Gabapentin 100 MG CAPSULE 200 MG PO ×3 (07:53→21:50)
[2021-10-12] MEDS: Multivitamin TABLET 1 TAB PO (07:53)
[2021-10-12 08:28] LABS: Estimated Glomerular Filt Rate > 60
--- NOTE | 2021-10-12 09:18 | PM.PNORT ---
Subjective Subjective Date of Service: 10/12/21 Interval history: day 2 right hip surgical site infection labs grew staph aureus no overnight events has been out of bed walking and doing exercises Physical Exam Vital Signs: Vital Signs: Last Vital Signs Temp 98.0 F 10/12/21 07:44 Pulse 66 10/12/21 07:44 Resp 20 10/12/21 07:44 BP 142/71 H 10/12/21 07:44 Pulse Ox 97 10/12/21 07:44 BMI result Body Mass Index 34.7 Extrem: Other: right hip inscisions less red with less drainage. Was able to express some pus from incision site Procedures Date of Service Date of Service: 10/12/21 Progress Note: A&P Assessment and plan (1) Surgical site infection: Status: Acute Assessment and Plan: cont pain mgmnt cont iv abx-adjust based on sensitivities PT/OT dispo pending status of infection Fall Risk Details Current Medications: Current Medications Acetaminophen (Acetaminophen 325 Mg Tablet) 650 mg PO Q6H PRN PRN Reason: Pain, Mild (Pain Scale 1-3) Last Admin: 10/11/21 09:13 Dose: 650 mg Documented by: Atorvastatin Calcium (Atorvastatin Calcium 10 Mg Tablet) 10 mg PO DAILY [facility] Last Admin: 10/12/21 07:52 Dose: 10 mg Documented by: Enoxaparin Sodium (Enoxaparin Sodium 40 Mg/0.4 Ml Syringe) 40 mg SUBCUT DAILY [facility] Last Admin: 10/12/21 07:51 Dose: 40 mg Documented by: Famotidine (Famotidine 20 Mg Tablet) 20 mg PO BEDTIME [facility] Last Admin: 10/11/21 20:51 Dose: 20 mg Documented by: Gabapentin (Gabapentin 100 Mg Capsule) 200 mg PO TID [facility] Last Admin: 10/12/21 07:53 Dose: 200 mg Documented by: Piperacillin Sod/Tazobactam (Sod 3.375 gm/ Sodium Chloride) 50 mls @ 100 mls/hr IV Q6H [facility] Last Infusion: 10/12/21 07:10 Dose: Infused Documented by: Vancomycin HCl 1,250 mg/ (Sodium Chloride) 250 mls @ 166.667 mls/hr IV Q24H [facility] Last Infusion: 10/11/21 19:22 Dose: Infused Documented by: Isosorbide Mononitrate (Isosorbide Mononitrate 30 Mg Tab.Er.24h) 90 mg PO DAILY [facility]; Protocol Last Admin: 10/12/21 07:52 Dose: 90 mg Documented by: Metoprolol Succinate (Metoprolol Succinate Er 50 Mg Tab.Er.24h) 50 mg PO DAILY [facility]; Protocol Last Admin: 10/12/21 07:53 Dose: 50 mg Documented by: Multivitamins/Vitamin C (Multivitamin Tablet) 1 tab PO DAILY [facility] Last Admin: 10/12/21 07:53 Dose: 1 tab Documented by: Omeprazole (Omeprazole 40 Mg Capsule.Dr) 40 mg PO DAILY@0630 [facility] Last Admin: 10/12/21 06:37 Dose: 40 mg Documented by: Ondansetron HCl (Ondansetron Hcl 4 Mg/2 Ml Vial) 4 mg IVPUSH Q8H PRN PRN Reason: Nausea and Vomiting Oxycodone HCl (Oxycodone Hcl Immed Release 5 Mg Tablet) 5 mg PO Q6H PRN PRN Reason: Pain, Severe (Pain Scale 7-10) Pharmacy Consult (Consult Rx Perform Med Rec) 1 each MISCELLANE ONCE PRN PRN Reason: Consult order Pharmacy Consult (Consult Rx Vancomycin Dosing) 1 each MISCELLANE DAILY PRN PRN Reason: Consult order Sodium Chloride (0.9 % Sodium Chloride Flush 3 Ml Syringe) 3 ml IVFLUSH QSHIFT [facility] Last Admin: 10/12/21 07:53 Dose: 3 ml Documented by: Time Spent With Patient Time: Total time spent is greater than 50% in coordination of care (as documented) at patient's floor/unit and/or counseling patient: Time with patient: less than 15 minutes Quality Stroke Does the patient have a stroke diagnosis?: No VTE Prior VTE?: No VTE Risk Level:: Medical - moderate - high VTE Device Contraindication: Treatment Not Indicated VTE Drug Contraindication: N/A - Med Ordered
[2021-10-12 09:38] VITALS: BP 142/71; PULSE 66; O2SAT 97
--- NOTE | 2021-10-12 10:42 | P.PNIM_ITS ---
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 CTA bilateral, no accessory muscles used CVS: S1,S2,R RR GI: soft, non t jenny, non distend ed right hip dress ing in place. Neur o:? motor grossly intact, alert Psyc h: appropriate aff ect, appropriate i nsight? Objective Data Active Medications Acetaminophen (Acetaminophen 325 Mg Tablet) 650 mg PO Q6H PRN PRN Reason: Pain, Mild (Pain Scale 1-3) Last Admin: 10/11/21 09:13 Dose: 650 mg Documented by: EVA Atorvastatin Calcium (Atorvastatin Calcium 10 Mg Tablet) 10 mg PO DAILY [facility] Last Admin: 10/12/21 07:52 Dose: 10 mg Documented by: YESSY Enoxaparin Sodium (Enoxaparin Sodium 40 Mg/0.4 Ml Syringe) 40 mg SUBCUT DAILY [facility] Last Admin: 10/12/21 07:51 Dose: 40 mg Documented by: YESSY Famotidine (Famotidine 20 Mg Tablet) 20 mg PO BEDTIME [facility] Last Admin: 10/11/21 20:51 Dose: 20 mg Documented by: ODRISKorina Gabapentin (Gabapentin 100 Mg Capsule) 200 mg PO TID [facility] Last Admin: 10/12/21 07:53 Dose: 200 mg Documented by: YESSY Piperacillin Sod/Tazobactam (Sod 3.375 gm/ Sodium Chloride) 50 mls @ 100 mls/hr IV Q6H [facility] Last Infusion: 10/12/21 07:10 Dose: 0 mls/hr Documented by: YESSY Vancomycin HCl 1,250 mg/ (Sodium Chloride) 250 mls @ 166.667 mls/hr IV Q24H [facility] Last Infusion: 10/11/21 19:22 Dose: 0 mls/hr Documented by: ARTHUR Isosorbide Mononitrate (Isosorbide Mononitrate 30 Mg Tab.Er.24h) 90 mg PO DAILY [facility]; Protocol Last Admin: 10/12/21 07:52 Dose: 90 mg Documented by: YESSY Metoprolol Succinate (Metoprolol Succinate Er 50 Mg Tab.Er.24h) 50 mg PO DAILY [facility]; Protocol Last Admin: 10/12/21 07:53 Dose: 50 mg Documented by: YESSY Multivitamins/Vitamin C (Multivitamin Tablet) 1 tab PO DAILY [facility] Last Admin: 10/12/21 07:53 Dose: 1 tab Documented by: YESSY Omeprazole (Omeprazole 40 Mg Capsule.Dr) 40 mg PO DAILY@0630 [facility] Last Admin: 10/12/21 06:37 Dose: 40 mg Documented by: ARTHUR Ondansetron HCl (Ondansetron Hcl 4 Mg/2 Ml Vial) 4 mg IVPUSH Q8H PRN PRN Reason: Nausea and Vomiting Oxycodone HCl (Oxycodone Hcl Immed Release 5 Mg Tablet) 5 mg PO Q6H PRN PRN Reason: Pain, Severe (Pain Scale 7-10) Pharmacy Consult (Consult Rx Perform Med Rec) 1 each MISCELLANE ONCE PRN PRN Reason: Consult order Pharmacy Consult (Consult Rx Vancomycin Dosing) 1 each MISCELLANE DAILY PRN PRN Reason: Consult order Sodium Chloride (0.9 % Sodium Chloride Flush 3 Ml Syringe) 3 ml IVFLUSH QSHIFT [facility] Last Admin: 10/12/21 07:53 Dose: 3 ml Documented by: YESSY Labs CBC & Chem 7: 10/11/21 07:16 10/12/21 07:46 Labs: Laboratory Results - last 24 hr 10/12/21 07:46 Estim Creat Clear Calc 74.0 Estimated GFR > 60 Microbiology Microbiology Results: Microbiology 10/10/21 15:43 Gram Stain - Final Hip Right Routine Culture - Final Methicillin Res Staph Aureus 10/10/21 13:36 Blood Culture - Preliminary Blood - Venous No growth after 24 hours. 10/10/21 13:34 Blood Culture - Preliminary Blood - Venous No growth after 24 hours. 10/10/21 16:24 Gram Stain - Final Hip - Hip Routine Culture - Final Assessment and Plan (1) Surgical site infection: Status: Acute (2) CAD (coronary artery disease): Status: Acute (3) HTN (hypertension): Status: Acute (4) Hyperlipidemia: Status: Acute Plan 75-year-old female with past medical history of CAD as well as hypertension Status post recent right hip surgery presented to [facility] due to right hip pain with drainage from incision site. Infected surgical incision status post recent right hip surgery IMN 09/18/21 on IV vancomycin and zosyn day 3 no evidence of sepsis normal WBC count no fevers blood cultures x2 negative times 24 hours wound culture right hip growing MRSA will DC IV Zosyn, continue IV vancomycin will transfer patient to Ortho Service as per request from Ortho KATELYNN Marley pain control and wound care as per Ortho diarrhea will obtain C diff if negative can use Imodium as needed Hypertension. stable BP continue metoprolol and Imdur, continue to hold amlodipine, lisinopril and hydrochlorothiazide hyperlipidemia continue statin history of coronary artery disease no chest discomfort, no palpitation continue statins and metoprolol. GERD On Prilosec insomnia will add as needed trazodone DVT prophylaxis with Lovenox code status full code Quality Stroke Does the patient have a stroke diagnosis?: No VTE Prior VTE?: No VTE Risk Level:: Medical - moderate - high VTE Device Contraindication: Treatment Not Indicated VTE Drug Contraindication: N/A - Med Ordered
[2021-10-12 11:59] VITALS: BP 124/67; PULSE 94; RESP 20; TEMP 36.2; O2SAT 98
--- NOTE | 2021-10-12 15:34 | MHC.CM.PN ---
IMM 10/12/21, EMR REVIEWED, PT ADMITTED W/INFECTED SURGICAL INCISION SITE, CM MET W/PT AND DT LEXI WHO IS AT BEDSIDE, PT REPORTS SHE LIVES W/HER DTR AND HER FAMILY, PT REPORTS AT BASELINE IS INDEPENDENT W/CAR, HAS BEEN RECEIVING HELP FROM DTR SHE HAD A FX'D HIP IN SEPTEMBER, PT HAS A WALKER, BEDSIDE COMMODE, SHOWER BENCH, RECLINER THAT LIFTS AND A W/C, PT IS ACTIVE W/[facility], PT VERIFIES PCP IS NERISSA KAUFMAN AND PT'S HCP IS ANTHONY ELLIOTT [phone], PT'S DTR WORKS IN [employer] [place] [employer] AND WILL BE WORKING THIS W/E. PT'S BC'S NEG SO FAR AND PT WILL LIKELY BE ABLE TO GO HOME ON ORAL ABX. D/C PLAN: HOME W/[facility], DTR FOR TRANSPORT
[2021-10-12 15:42] VITALS: BP 117/64; PULSE 67; RESP 14; TEMP 37.6; O2SAT 97
[2021-10-12 17:23] LABS: Creatinine Clr Calc Pharmacy 76.9; Estimated Glomerular Filt Rate > 60
[2021-10-12 17:29] LABS: Vancomycin Trough 7.3 mcg/mL (10.0-20.0)
[2021-10-12] MEDS: vancomycin HCL 1,500 MG in 0.9 % Sodium Chloride 500 ML 333.33 MG IV (18:06)
[2021-10-12 19:39] VITALS: BP 144/75; PULSE 86; RESP 15; TEMP 37.2; O2SAT 96
[2021-10-12] MEDS: oxyCODONE HCl Immed Release 5 MG TABLET PO (21:49)
[2021-10-12] MEDS: traZODone HCL 25 MG HALFTAB PO (21:50)
[2021-10-12] MEDS: Famotidine 20 MG TABLET PO (21:50)
[2021-10-13] VITALS: BP 126/70; PULSE 63; RESP 17; TEMP 36.7; O2SAT 95
[2021-10-13 03:32] VITALS: BP 124/72; PULSE 61; RESP 17; TEMP 36.1; O2SAT 96
[2021-10-13] MEDS: Omeprazole 40 MG CAPSULE.DR PO (06:12)
[2021-10-13 06:39] LABS: Creatinine Clr Calc Pharmacy 71.4; Estimated Glomerular Filt Rate > 60
[2021-10-13 08:00] VITALS: BP 166/84; PULSE 70; RESP 18; TEMP 36.6; O2SAT 97
[2021-10-13 09:13] VITALS: BP 166/84; PULSE 70; O2SAT 97
[2021-10-13] MEDS: Enoxaparin Sodium 40 MG/0.4 ML SYRINGE SUBCUT (10:00)
[2021-10-13] MEDS: Metoprolol Succinate ER 50 MG TAB.ER.24H PO (10:01)
[2021-10-13] MEDS: Multivitamin TABLET 1 TAB PO (10:01)
[2021-10-13] MEDS: Gabapentin 100 MG CAPSULE 200 MG PO (10:01)
[2021-10-13] MEDS: Atorvastatin Calcium 10 MG TABLET PO (10:01)
[2021-10-13] MEDS: Isosorbide Mononitrate 30 MG TAB.ER.24H 90 MG PO (10:02)
[2021-10-13] MEDS: 0.9 % Sodium Chloride Flush 3 ML SYRINGE IVFLUSH (10:02)
[2021-10-13 10:56] VITALS: BP 119/56; PULSE 60; RESP 18; TEMP 36.8; O2SAT 98
--- NOTE | 2021-10-13 11:26 | PM.DS ---
DS: Providers Provider Date of Service: 10/13/21 Date of admission: 10/10/21 16:58 Primary care physician: Blade Hussein MD Consults: 10/10/21 16:58 Consult to Orthopedics Routine Consulting Provider: Moisés Aleman Reason for consultation: surgical wound infection Has provider been notified: No 10/12/21 14:07 Consult to Infectious Diseases Routine Consulting Provider: Genoveva Manuel Reason for consultation: MRSA right hip surgical site infection DS: Diagnosis Discharge Diagnosis (1) Surgical site infection: Status: Acute DS: Summary Hospital Course Hospital Course: This is a 75-year-old female who is approximately 3 weeks status post right hip IM nail. She presented to the emergency department with increased redness pain and drainage of the right surgical site. G stain and cultures were positive for MRSA. Blood cultures negative. Her response to IV antibiotics while in the hospital was successful in reducing inflammation, pain and copious drainage. Infectious Disease saw the patient and recommended the patient stop IV antibiotics and be placed on p.o. linezolid. She will take this for 2 weeks. At discharge her bandage was changed and the incision was clean dry and intact. Recommendation was for her to have daily dressing changes while at home and to apply warm compresses twice a day. I would like to see her back in about 2 weeks when she has completed her course of antibiotics for a follow-up, sooner if needed. Time Spent with Patient Time attestation: Total time spent providing and/or coordinating discharge services: Discharge coordination time: Less than 30 minutes Quality: Stroke Does the patient have a stroke diagnosis?: No Physical Exam Vital Signs: Vital Signs: Last Vital Signs Temp 98.3 F 10/13/21 10:56 Pulse 60 10/13/21 10:56 Resp 18 10/13/21 10:56 BP 119/56 L 10/13/21 10:56 Pulse Ox 98 10/13/21 10:56 BMI result Body Mass Index 34.7 Extrem: Other: Right hip incision site improving redness. There is some discharge of copious fluid with expression. She has no pain with hip range of motion. DS: Data Data Completed and Pending Completed studies during hospitalization [Text1]: Procedures Reposition Right Upper Femur with Intramedullary Internal Fixation Device, Percutaneous Approach (09/17/21) Labs on day of discharge: Laboratory Results - last 24 hr 10/12/21 10/12/21 10/13/21 16:59 16:59 05:42 Creatinine 0.77 0.83 Estim Creat Clear Calc 76.9 71.4 Estimated GFR > 60 > 60 Vancomycin Trough 7.3 L Preliminary micro results at discharge 10/10/21 13:36 Blood Culture - Preliminary Blood - Venous No growth after 48 hours. 10/10/21 13:34 Blood Culture - Preliminary Blood - Venous No growth after 48 hours. Discharge Plan Discharge Patient Disposition: Home Health Service Discharge Diagnosis: Right hip surgical site infection Referrals: [facility] [Other] - 1 Week Aretha Marley PA-C [Physician Campaign Management Specialist] - 1 Week Discharge Medications: New acetaminophen 325 mg Tablet 650 mg PO Q6H PRN (Reason: Pain, Mild (Pain Scale 1-3)) 30 Days Qty: 240 0RF Continued metoprolol succinate 50 mg tablet extended release 24 hr 50 mg PO DAILY Qty: 90 3RF (DME) raised toilet seat See Rx Instructions .Route .MEDSUPPLY Qty: 1 0RF Rx Instructions: Raised Toilet Seat omeprazole 40 mg Capsule,Delayed Release(Dr/Ec) 40 mg PO DAILY@0630 Qty: 0 0RF oxycodone 5 mg Tablet 5 mg PO Q6H PRN (Reason: Pain, Severe (Pain Scale 7-10)) Qty: 10 0RF multivitamin Tablet 1 tab PO DAILY 0RF lisinopril 20 mg tablet 1 tab PO DAILY PRN (Reason: BP >140/80) 0RF Rx Instructions: medication currently on HOLD since 10/07/21 isosorbide mononitrate 30 mg tablet extended release 24 hr 3 tab PO DAILY 0RF simvastatin 10 mg tablet 1 tab PO BEDTIME 0RF amlodipine 5 mg tablet 1 tab PO DAILY PRN (Reason: BP >140/80) 0RF Rx Instructions: currently on HOLD since 10/07/21 famotidine 20 mg Tablet 20 mg PO BEDTIME 0RF hydrochlorothiazide 12.5 mg capsule 1 cap PO DAILY PRN (Reason: BP > 140/80) 0RF gabapentin 100 mg capsule 200 mg PO TID 0RF Probiotic 10 billion cell Capsule 10,000 mmu cells PO BID 0RF enoxaparin 40 mg/0.4 mL syringe 40 mg subcut DAILY 0RF Caltrate 600-D Plus Minerals 600 mg calcium- 800 unit-50 mg tablet 1 tab PO BID 0RF Rx Instructions: give with meal/snack Discontinued cephalexin 500 mg capsule 1 cap PO QID 0RF Rx Instructions: started on 10/08/21 x 7 days No Action linezolid 600 mg tablet 600 mg PO Q12H 14 Days Qty: 28 0RF Discharge Orders: Discharge Order (Routine); Ordered 10/13/21 Ordered By: Aretha Marley Diet: regular diet Activity on Discharge: Use cane or walker Stand Alone Forms: Patient Portal Discharge page Care Plan Goals: Treat infection Health Concerns: none Plan of Treatment: Antibiotics Physical Therapy Assessment: Continue taking antibiotics until completed daily dressing changes continue PT exercises Follow up with our office in two weeks Discharge Date/Time: 10/13/21 14:17
--- NOTE | 2021-10-13 11:37 | MHC.CM.PN ---
pt dcd today with resumption of [facility] pt will also need wound care family to transport home
--- NOTE | 2021-10-13 15:47 | W.MHC.F2F ---
Service Date Service Date: 10/13/21 Encounter Date of encounter: 10/13/21 Reasons for Services Signs and symptoms assessed: right hip drainage, redness, swelling Reason for longterm: wound care (Daily, dry dressing changes. Apply warm compress to the area 2x a day for 20 mins at a time. ) Reason for physical therapy: home safety and mobility, therapeutic exercises, restore joint function, gait/transfer training, ADL training and energy conservation Reason for occupational therapy: home safety and mobility, therapeutic exercises, restore joint function, gait/transfer training, ADL training and energy conservation MD Overseeing Care: Moisés Aleman Homebound: Leaving the home is medically contraindicated at this time without the asist of a device and/or another person due th the listed conditions above and below. Reason homebound: unable to drive Certification: Based on the above findings, I certify that this patient is confined to the home and needs intermittent longterm care, physical therapy and/or speech therapy, or continues to need occupational therapy. The patient is under my care, and I have initiated the establishment of the plan of care. The patient will be followed by a physician who will periodically review the plan of care.
--- NOTE | 2021-10-13 16:07 | MHC.CLN ---
F2F SENT TO [facility]
== END 2021-10-13 14:17 | disposition home health service (06) | DRG 863 ==
LOC: HO.ED 15:30 → HO.EDOVER 17:10 → HO.S3 10-11 09:38
PROVIDERS: Admitting Provider Nurse Practitioner Acute Care; Emergency Provider Emergency Medicine; PCP Internal Medicine; Visit Provider Orthopaedic Surgery
DX: T81.41XA Infection following a procedure, superficial incisional surgical site, initial encounter (principal); I25.10 Atherosclerotic heart disease of native coronary artery without angina pectoris; B95.62 Methicillin resistant Staphylococcus aureus infection as the cause of diseases classified elsewhere; E78.5 Hyperlipidemia, unspecified; I10 Essential (primary) hypertension; K21.9 Gastro-esophageal reflux disease without esophagitis; Z20.822 Contact with and (suspected) exposure to COVID-19; Z88.5 Allergy status to narcotic agent; Z79.899 Other long term (current) drug therapy
CPT/HCPCS: 36415; 80048; 80076; 80202; 82565; 83605; 85025; 85652; 86140; 87040; 87071; 87077; 87186; 87205; 87635; 96365; 96375; 97116; 97162; 97165; 97530; 99285; J1650; J2543; J3370

== ENCOUNTER 2021-11-02 08:53 | Outpatient (REF) | payer MEDICARE, SELFPAY ==
--- NOTE | ~2021-11-02 | XR_ITS ---
EXAMINATION: XR PELVIS XR HIP, RIGHT CLINICAL INFORMATION: Pain in right hip COMPARISON: Pelvis and right hip radiograph from 10/05/2021 TECHNIQUE: 2 views of the right hip and single view pelvis FINDINGS: Status post placement of a right trochanteric femoral nail stabilizing intertrochanteric fracture. Orthopedic hardware is grossly intact. No acute visible fracture or dislocation. Degenerative changes of the bilateral femoral acetabular joints with joint space narrowing and periarticular osteophyte formation. Degenerative changes at the inferior aspect of the right sacroiliac joint and lumbosacral spine. Joint spaces and alignment are otherwise maintained. Pelvic phleboliths are noted. Visualized bowel gas is unremarkable. XR/XR pelvis 1-2V IMPRESSION: 1. Status post right trochanteric femoral nail stabilizing intertrochanteric fracture with orthopedic hardware grossly intact. 2. No acute visible fracture or dislocation. 3. Degenerative changes of the bilateral femoral acetabular joints. 4. Degenerative changes at the inferior margin of the right sacroiliac joint and lumbosacral spine.
--- NOTE | ~2021-11-02 | XR_ITS ---
EXAMINATION: XR PELVIS XR HIP, RIGHT CLINICAL INFORMATION: Pain in right hip COMPARISON: Pelvis and right hip radiograph from 10/05/2021 TECHNIQUE: 2 views of the right hip and single view pelvis FINDINGS: Status post placement of a right trochanteric femoral nail stabilizing intertrochanteric fracture. Orthopedic hardware is grossly intact. No acute visible fracture or dislocation. Degenerative changes of the bilateral femoral acetabular joints with joint space narrowing and periarticular osteophyte formation. Degenerative changes at the inferior aspect of the right sacroiliac joint and lumbosacral spine. Joint spaces and alignment are otherwise maintained. Pelvic phleboliths are noted. Visualized bowel gas is unremarkable. XR/XR hip RT min 2V IMPRESSION: 1. Status post right trochanteric femoral nail stabilizing intertrochanteric fracture with orthopedic hardware grossly intact. 2. No acute visible fracture or dislocation. 3. Degenerative changes of the bilateral femoral acetabular joints. 4. Degenerative changes at the inferior margin of the right sacroiliac joint and lumbosacral spine.
== END 2021-11-02 08:54 | disposition home or self-care (01) ==
LOC: HO.HOSX 08:53
PROVIDERS: Visit Provider Physician Assistant
DX: S72.001D Fracture of unspecified part of neck of right femur, subsequent encounter for closed fracture with routine healing (principal)
CPT/HCPCS: 72170; 73502; 99212

== ENCOUNTER 2021-12-14 08:11 | Outpatient (REF) | payer MEDICARE, SELFPAY ==
--- NOTE | ~2021-12-14 | XR_ITS ---
EXAMINATION: XR PELVIS XR HIP, RIGHT CLINICAL INFORMATION: Right hip pain COMPARISON: Radiographs pelvis and right hip 11/02/2021. TECHNIQUE: AP view of the pelvis is performed along with 3 views of the right hip for a total of 4 views. FINDINGS: Prior right intertrochanteric hip fracture with placement of gamma nail and intramedullary savannah. Hardware is intact. Distal savannah is beyond the [id number]. There is no acute fracture or dislocation. No destructive process or osteolysis. Hip joint shows no interval narrowing or erosive change. Again, there are degenerative changes lower lumbar spine and osteitis pubis. No fracture or destructive process bony pelvis. Left hip unremarkable. XR/XR hip RT min 2V IMPRESSION: -Right hip hardware intact. No osteolysis. -No acute bony abnormality pelvis and right hip.
--- NOTE | ~2021-12-14 | XR_ITS ---
EXAMINATION: XR PELVIS XR HIP, RIGHT CLINICAL INFORMATION: Right hip pain COMPARISON: Radiographs pelvis and right hip 11/02/2021. TECHNIQUE: AP view of the pelvis is performed along with 3 views of the right hip for a total of 4 views. FINDINGS: Prior right intertrochanteric hip fracture with placement of gamma nail and intramedullary savannah. Hardware is intact. Distal savannah is beyond the [id number]. There is no acute fracture or dislocation. No destructive process or osteolysis. Hip joint shows no interval narrowing or erosive change. Again, there are degenerative changes lower lumbar spine and osteitis pubis. No fracture or destructive process bony pelvis. Left hip unremarkable. XR/XR pelvis 1-2V IMPRESSION: -Right hip hardware intact. No osteolysis. -No acute bony abnormality pelvis and right hip.
== END 2021-12-14 08:12 | disposition home or self-care (01) ==
LOC: HO.HOSX 08:11
PROVIDERS: Visit Provider Physician Assistant
DX: S72.001D Fracture of unspecified part of neck of right femur, subsequent encounter for closed fracture with routine healing (principal); M70.61 Trochanteric bursitis, right hip
CPT/HCPCS: 72170; 73502; 99212

== ENCOUNTER → 2022-03-12 14:06 | Outpatient (BNVA) | payer MEDICARE, SELFPAY | PROVIDERS: PCP Internal Medicine; Referring Provider Internal Medicine; Visit Provider Internal Medicine Cardiovascular Disease | DX: I25.10 Atherosclerotic heart disease of native coronary artery without angina pectoris (principal); I10 Essential (primary) hypertension; Z79.82 Long term (current) use of aspirin; Z79.899 Other long term (current) drug therapy | CPT/HCPCS: 93005; 99212 ==

== ENCOUNTER 2022-08-15 09:31 | Outpatient (REF) | payer MEDICARE, SELFPAY ==
--- NOTE | ~2022-08-15 | FL_ITS ---
EXAMINATION: FL BARIUM SWALLOW CLINICAL INFORMATION: Dysphagia particularly to solids perceived mid chest for approximately 6 months. COMPARISON: None TECHNIQUE: Barium swallow examination is performed using fluoroscopic evaluation in addition to multiple fluoroscopic spot views, including cine images during swallowing. The patient is imaged both upright and prone and using both thick and thin sulfate along with effervescent granules. Barium pill also used. Fluoroscopy time: 2.4 minutes DAP: 20.2 Gycm2 Images: 48 FINDINGS: Swallowing function is normal and there is no aspiration. The cervical esophagus has no web or diverticulum or stricture. The cervical thoracic junction appears normal. The thoracic esophagus dysmotility with multiple tertiary contractions. There is mild smooth narrowing at the distal thoracic esophagus just above the esophagogastric junction. The mucosa appears smooth. No ulceration. Barium pill readily passed through this area. There is a sliding hiatal hernia approximately 3 thoracic vertebral bodies in height. Gastroesophageal reflux is seen during fluoroscopy to midthoracic esophagus. Cursory view upper abdomen shows no gastric outlet obstruction. FL/FL barium swallow IMPRESSION: -Large sliding hiatal hernia with gastroesophageal reflux to mid thoracic esophagus. -Smooth narrowing distal thoracic esophagus. Barium pill passes through this area without delay. Recommend further assessment with endoscopy to exclude underlying mucosal abnormality. -Esophageal dysmotility/tertiary contractions.
== END 2022-08-15 09:32 | disposition home or self-care (01) ==
LOC: HO.XRAY 09:31
PROVIDERS: PCP Internal Medicine; Visit Provider Internal Medicine
DX: Z13.89 Encounter for screening for other disorder (principal); R13.10 Dysphagia, unspecified
CPT/HCPCS: 74220

== ENCOUNTER → 2022-10-03 09:40 | Outpatient (BNVA) | payer MEDICARE, SELFPAY | PROVIDERS: PCP Internal Medicine; Visit Provider Nurse Practitioner Family | DX: K44.9 Diaphragmatic hernia without obstruction or gangrene (principal); K21.9 Gastro-esophageal reflux disease without esophagitis; R13.19 Other dysphagia | CPT/HCPCS: 99202 ==

== ENCOUNTER 2022-11-08 08:45 | Day surgery (SDC) | payer MEDICARE, SELFPAY ==
[2022-11-05 15:11] VITALS: BMI 35.5
--- NOTE | 2022-11-07 13:59 | P.CONAN_ITS ---
Documented by User: Linette Bey NP 11/07/22 14:00 HPI - Anesthesia Eval Consult details Narrative: 77yo F for Upper Endoscopy with Balloon Dilitation stable at yearly, routine cardiology office visit 03/2022 [facility] Active Problems Active Problems: All Active Problems (Updated 11/05/22 @ 15:12 by Stephanie Olson RN) Closed fracture of right hip (Acute) Acute UTI (Acute) Surgical site infection (Acute) Trochanteric bursitis, right hip (Acute) Dysphagia (Acute) HTN (hypertension) (Acute) CAD (coronary artery disease) (Acute) Past Medical History Medical History CAD (coronary artery disease) Dysphagia HTN (hypertension) Hyperlipidemia Family History Family History Father Cancer Mother CHF (congestive heart failure) Family history of problems with anesthesia: No Surgical History Surgical History History of hip surgery Hx of cardiac cath (~2013) Hx of cholecystectomy Hx of hysterectomy History of Problems with Anesthesia: No Social History Social History Household Members: Family Household Members Other:: 6 Housing: House Do you presently have visiting nurse or other home services: No Alcohol intake: never Patient Tobacco Use Status: Never used Tobacco e-Cigarette/Vaping Use: Never Used Use of substances other than those prescribed or required for medical reasons: No Are you DNR?: No Advance Directives: Yes Advance Directives on File: Yes Advance Directives Date on File: 10/11/21 Nutrition Risks: No Nutritional Risk service: No Current occupational status: retired 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 Meds Allergies Allergy/AdvReac Type Severity Reaction Status Date / Time codeine [CODEINE] Allergy Intermediate RASH Verified 10/03/22 09:53 Home Medications Medication Instructions Recorded Confirmed Last Taken Type calcium 600 mg-D3 800 unit-mag11 1 tab PO BID 08/29/20 11/05/22 10/10/21 History 50 se-zuxd-beptdb-gabi-s.borat tablet (Caltrate 600-D Plus Minerals) famotidine 20 mg tablet 20 mg PO BEDTIME 10/10/21 11/05/22 10/09/21 History gabapentin 100 mg capsule 200 mg PO TID 10/10/21 11/05/22 11/08/22 05:00 History isosorbide mononitrate 30 mg 3 tab PO DAILY 10/10/21 11/05/22 11/08/22 05:00 History tablet,extended release 24 hr multivitamin 1 tab PO DAILY 10/10/21 11/05/22 10/10/21 History hydrochlorothiazide 12.5 mg capsule 1 cap PO DAILY PRN BP > 140/80 03/12/22 11/05/22 10/07/21 History lisinopril 10 mg tablet 10 mg PO DAILY 03/12/22 11/05/22 Unknown History Exam Exam Date and Time: November 07, 2022 1359 Height,Weight and Vital Signs: Height 5 ft 7 in Weight 102.965 kg Narrative Narrative: EKG 03/2022 normal sinus rhythm with low-voltage QRS with poor R-wave progression most likely due to lead placement Assessment and Plan Assessment Anesthesia Assessment: Chart Reviewed Final Anesthetic Review Family History of Problems with Anesthesia: No History of Problems with Anesthesia: No Documented by User: Carmita Wick MD 11/08/22 10:39 [facility] Active Problems Active Problems: All Active Problems (Updated 11/05/22 @ 15:12 by Stephanie Olson RN) Closed fracture of right hip (Acute) Acute UTI (Acute) Surgical site infection (Acute) Trochanteric bursitis, right hip (Acute) Dysphagia (Acute) HTN (hypertension) (Acute) CAD (coronary artery disease) (Acute)- Stable. Denies recent chest pain. On daily imdur Past Medical History Medical History CAD (coronary artery disease) Dysphagia HTN (hypertension) Hyperlipidemia Family History Family History Father Cancer Mother CHF (congestive heart failure) Surgical History Surgical History History of hip surgery Hx of cardiac cath (~2013) Hx of cholecystectomy Hx of hysterectomy Social History Social History Household Members: Family Household Members Other:: 6 Housing: House Do you presently have visiting nurse or other home services: No Alcohol intake: never Patient Tobacco Use Status: Never used Tobacco e-Cigarette/Vaping Use: Never Used Use of substances other than those prescribed or required for medical reasons: No Are you DNR?: No Advance Directives: Yes Advance Directives on File: Yes Advance Directives Date on File: 10/11/21 Nutrition Risks: No Nutritional Risk service: No Current occupational status: retired 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 Meds Allergies Allergy/AdvReac Type Severity Reaction Status Date / Time codeine [CODEINE] Allergy Intermediate RASH Verified 10/03/22 09:53 Home Medications Medication Instructions Recorded Confirmed Last Taken Type calcium 600 mg-D3 800 unit-mag11 1 tab PO BID 08/29/20 11/05/22 10/10/21 History 50 sh-ldgc-cdyjpo-gabi-s.borat tablet (Caltrate 600-D Plus Minerals) famotidine 20 mg tablet 20 mg PO BEDTIME 10/10/21 11/05/22 10/09/21 History gabapentin 100 mg capsule 200 mg PO TID 10/10/21 11/05/22 11/08/22 05:00 History isosorbide mononitrate 30 mg 3 tab PO DAILY 10/10/21 11/05/22 11/08/22 05:00 History tablet,extended release 24 hr multivitamin 1 tab PO DAILY 10/10/21 11/05/22 10/10/21 History hydrochlorothiazide 12.5 mg capsule 1 cap PO DAILY PRN BP > 140/80 03/12/22 11/05/22 10/07/21 History lisinopril 10 mg tablet 10 mg PO DAILY 03/12/22 11/05/22 Unknown History Exam Height,Weight and Vital Signs: Height 5 ft 7 in Weight 102.965 kg Vital Signs Temp Pulse Resp BP Pulse Ox O2 Del Method 11/08/22 09:47 97.3 F 98 16 120/76 98 Room Air Airway Mallampati Class: III TM Dist: >3cm Neck ROM: Full Heart: RRR Lungs: CTAB Assessment and Plan Assessment Anesthesia Assessment: Anesthesia Plan Discussed Final Anesthetic Review NPO: Yes ASA Class: III Final Preanesthetic Review: No Changes in Pt Med Stat, Meds/Allgs Chart Reviewed, Consent Obtained/Reviewed and Anes Risks/Benef Reviewed Patient Risk: Intermediate Procedure Risk: Low Assessment/Block/Sedation in SS: Assess/Block/Sedation-SS Anesthetic Plan Anesthetic Plan: MAC: Disposition: Standard PACU
[2022-11-08 09:31] VITALS: BMI 78.4
[2022-11-08 09:47] VITALS: BP 120/76; PULSE 98; RESP 16; TEMP 36.3; O2SAT 98
[2022-11-08] MEDS: Lactated Ringers 1,000 ML 100 ML IVCONT (10:02)
--- NOTE | 2022-11-08 11:06 | MHC.SHP ---
Pre-Procedural Eval Section A Date of Service: 11/08/22 Section B Chief Complaint: Dysphagia, Relevant Family History (Specify if Yes): No Relevant Social History: None Present Medications: see Short Stay Collaborative assessment Medical History: Significant History (CAD (coronary artery disease) Dysphagia HTN (hypertension) Hyperlipidemia) History of Previous Operations: Relevant previous surgery/procedure and date(s) (History of hip surgery Hx of cardiac cath (~2013) Hx of cholecystectomy Hx of hysterectomy) Allergies: Allergies Allergy/AdvReac Type Severity Reaction Status Date / Time codeine [CODEINE] Allergy Intermediate RASH Verified 10/03/22 09:53 Review of Systems Sugical H&P ROS: Negative: Constitution, Cardiovascular, Respiratory, Neurological, Psychiatric, Hem-Onc, Allergic/Immunologic, Gastrointestinal, Genitourinary, Musculoskeletal, Integumentary, Endocrine and Eyes/Ears/Nose/Throat Exam Surgical H&P Exam: Normal: HEENT, Normal: Heart, Normal: Lungs, Normal: Extremities, Normal: Abdomen, Normal: Skin and Normal: Neurological Plan Diagnosis/Plan: Unchanged I have reviewed the history and physical and performed a pertinent physical examination on my patient. No changes have occurred unless specified. Time Spent With Patient Time: Total time managing care of this patient today ____ minutes.
--- NOTE | 2022-11-08 11:07 | W.PM.OPN ---
Operative Note Operative Note Date of Service: 11/08/22 Narrative: Procedure Description: EGD Indication: dysphagia Anesthesia: MAC FLEXIBLE TRANSORAL UPPER GASTROINTESTINAL ENDOSCOPY UPPER ENDOSCOPY Consent: Indications for the procedure and potential complications of bleeding, perforation, reaction to medications and missed diagnosis were discussed with the patient and informed consent was obtained. Instrument: Olympus GIF H 190 J mid size upper endoscope Monitoring: Vital signs and clinical assessment, continuous EKG monitoring, Pulse oximetry, Carbon Dioxide monitoring and blood pressure monitoring were done throughout the procedure. Procedure: The patient was placed in the left lateral decubitis position and pre-procedure medications were administered and a bite block was placed. The endoscope was inserted into the mouth and advanced under direct vision to the third part of duodenum. A careful inspection was made as the upper endoscope was withdrawn including a retroflexed examination of the proximal stomach; Findings and interventions are described below. Findings: Larynx:normal Esophagus: GE junction at 30 cm, diaphragm hiatus at 37 cm, mild esophagitis at GEJ, balloon dilation done at 18 mm at LES and 19 mm at UES- no tears seen Stomach: Patchy gastric erythema. Biopsies were obtained. Grade 3 flap valve on retroflexed examination of the cardia with large para esophageal hernia measuring about 7 cm noted. the hernia sac had erosions and erythema Duodenum: bulbar duodenitis Intervention: Biopsies as noted above, balloon dilation Impression/Findings: paraesophageal hernia soy erosions duodenitis PLAN: recommend surgical assessment GERd precautions optimize PPI dosing
[2022-11-08 11:24] VITALS: BMI 35.6
[2022-11-08 11:55] VITALS: BP 91/46; PULSE 81; RESP 18; TEMP 36.7; O2SAT 95
[2022-11-08 12:10] VITALS: BP 103/60; PULSE 80; RESP 18; TEMP 37; O2SAT 96
== END 2022-11-08 13:27 | disposition home or self-care (01) ==
PROVIDERS: PCP Internal Medicine; Visit Provider Internal Medicine Gastroenterology
PROC: (CPT 43249; principal; 2022-11-08 11:10)
DX: R13.19 Other dysphagia (principal); K44.9 Diaphragmatic hernia without obstruction or gangrene; K25.9 Gastric ulcer, unspecified as acute or chronic, without hemorrhage or perforation; K20.80 Other esophagitis without bleeding; K29.80 Duodenitis without bleeding; I25.10 Atherosclerotic heart disease of native coronary artery without angina pectoris; I10 Essential (primary) hypertension; E78.5 Hyperlipidemia, unspecified; E66.9 Obesity, unspecified; Z68.35 Body mass index [BMI] 35.0-35.9, adult; Z88.8 Allergy status to other drugs, medicaments and biological substances; Z90.49 Acquired absence of other specified parts of digestive tract; Z98.890 Other specified postprocedural states
CPT/HCPCS: 43249; 43239; 88305; 88342; C1726; J3010

== ENCOUNTER → 2022-11-12 12:58 | Outpatient (BNVA) | payer MEDICARE, SELFPAY | PROVIDERS: PCP Internal Medicine; Visit Provider Surgery | DX: E66.9 Obesity, unspecified (principal); Z68.35 Body mass index [BMI] 35.0-35.9, adult; K44.9 Diaphragmatic hernia without obstruction or gangrene; I10 Essential (primary) hypertension; I25.10 Atherosclerotic heart disease of native coronary artery without angina pectoris; D64.9 Anemia, unspecified | CPT/HCPCS: 99212; Q3014 ==

== ENCOUNTER → 2022-11-20 09:49 | Outpatient (REF) | payer MEDICARE, SELFPAY ==
--- NOTE | 2022-11-20 09:53 | CA_ITS ---
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 Study Quality: Adequate ECG Rhythm: Sinus Conclusions: - 1. Normal LV systolic function with impaired relaxation filling pattern 2. Normal cardiac valvular Doppler 3. No gross pericardial effusion Findings Left Ventricle Normal left ventricular size, thickness, and systolic function. The visually estimated ejection fraction is between 55-60%. Spectral Doppler is indicative of an impaired relaxation filling pattern. E/E prime ratio is between 8 and 15 consistent with indeterminate filling pressures. Right Ventricle Normal right ventricular cavity size and systolic function. Atria Both atria are normal in size. There is no evidence of interatrial shunt. Aortic Valve The aortic valve structure and function is likely normal. There is no aortic valve stenosis. There is no aortic valve regurgitation. Mitral Valve There is mild anterior and posterior mitral leaflet thickening. There is trace mitral valve regurgitation. There is no mitral valve stenosis. Pulmonic Valve The pulmonic valve was not well visualized. Tricuspid Valve Likely normal tricuspid valve structure and function. Tricuspid regurgitation envelope is inadequate for calculation of right ventricular systolic pressure. Normal right atrial pressure. Great Vessels All visible segments of the aorta are normal in size. The pulmonary artery was not well visualized. Venous The inferior vena cava is normal in size and collapses greater than 50% with inspiration. Pericardium/Pleural There is no evidence of pericardial effusion. Prior Study Comparison No significant change compared to prior study dated: 07/03/2016. Measurements 2D Linear Measurements IVSd: 0.75 0.6-0.9/0.6-1.0 cm LVIDd: 4.60 3.9-5.3/4.2-5.9 cm LVIDd Index: 2.13 2.4-3.2/2.2-3.1 cm/m2 LVIDs: 2.80 2.0-3.6 cm LVPWd: 0.81 0.7-1.1 cm LA Diam: 3.40 2.7-3.8/3.0-4.0 cm LAIDs Index: 1.57 1.5-2.3 cm/m2 LV Mass: 142.58 67-162/88-224 g LV Mass Index: 66.01 43-95/49-115 g/m2 LVOT Diam: 2.20 3.0+(-)1.3 cm 2D Systolic Function EF 4C: 56.70 >55% EF 2C: 61.30 >55% EF BiP: 58.80 >55% Mitral Valve MV Pk E: 0.60 MV PK A: 0.96 MV Decel Time: 289.00 E/A: 0.60 E'Lateral: 5.22 E'Medial: 2.61 E/E' Med: 23.10 E/E' Lat: 11.60 PHT: 85.00 MVA PHT: 2.59 Decel Kenedy: 2.09 Aortic Valve AoV Pk Leonel: 1.29 AoV Pk Grad: 7.00 RAÚL: 2.00 LVOT LVOT Pk Leonel: 0.88 LVOT Mn Leonel: 0.44 LVOT VTI: 0.14 LVOT Pk Grad: 3.00 LVOT Mn Grad: 1.00 LVOT Diam: 2.20 LVOT Area: 3.80 Diastolic Function MV Pk E: 0.60 MV Pk A: 0.96 E/A: 0.60 E'Medial: 2.61 E/E' Med: 23.10 E' Laterial: 5.22 E/E' Lat: 11.60 Right Ventricle TAPSE (mm): 18.90 TVS' Leonel: 16.20 Tricuspid Valve RA Press: 3.00 Great Vessels Aorta Sinus of Valsalva: 3.00 2.0-3.5 cm Ao Asc: 2.90 2.1-3.4 cm Pulmonary Valve PV Pk Leonel: 0.97 Peak PV Grad: 4.00 Updated in Other Vendor System with Status of Final Best Ku MD electronically signed on 11/21/2022 12:44:57 PM with status of Final
== END ==
LOC: HO.CARD 09:49
PROVIDERS: PCP Internal Medicine; Visit Provider Surgery
DX: Z01.818 Encounter for other preprocedural examination (principal); R06.02 Shortness of breath; R94.31 Abnormal electrocardiogram [ECG] [EKG]
CPT/HCPCS: 93306

== ENCOUNTER 2022-11-27 10:39 | Outpatient (REF) | payer MEDICARE, SELFPAY ==
--- NOTE | 2022-11-27 12:53 | PFT_ITS ---
Forced vital capacity 95%, FEV1 95%, [id number] is 87%, and MVV 87%. All these values are normal. Post bronchodilator therapy, there is some improvement in [id number]. Total lung capacity 94%. Residual volume 83%. Diffusion capacity is 69%, but DL/VA is 78% CONCLUSION: The pulmonary function test is basically normal except for possible mild bronchial asthma. For that, clinical correlation is recommended. MD DERRICK Ellis/[place] / [id number]
== END 2022-11-27 10:40 | disposition home or self-care (01) ==
LOC: HO.RESP 10:39
PROVIDERS: PCP Internal Medicine; Visit Provider Surgery
DX: J45.41 Moderate persistent asthma with (acute) exacerbation (principal); K44.9 Diaphragmatic hernia without obstruction or gangrene
CPT/HCPCS: 94060; 94727; 94729

== ENCOUNTER → 2022-11-30 07:39 | Outpatient (REF) | payer MEDICARE, SELFPAY ==
--- NOTE | ~2022-11-30 | NM_ITS ---
Lexiscan Myocardial perfusion study Indication: Coronary disease, assess for ischemia Technique: The patient was brought in for a Lexiscan perfusion study on 11/30/2022 and was injected 0.4 mg of Lexiscan intravenously. Within a minute of this injection 35 mCi of sestamibi was given intravenously. Images were obtained using the SPECT gamma camera interlaced with the gating device. Images were obtained in supine position. Resting perfusion study was performed on 12/03/2022. Patient was administered 35 mCi of sestamibi intravenously at rest. Images were then obtained in supine position. Images were processed with the software and compared side to side in short axis, horizontal long axis and vertical long axis views. Total DLP 126mGy-cm. Findings: Raw acquisition reviewed. The stress perfusion study showed diminished tracer uptake in the apex and adjacent areas. With CT attenuation correction, there is significant improvement, suggestive of soft tissue attenuation artifact. The gated study shows normal LV systolic function with calculated LVEF of 68%. LV cavity is normal in size. The gated study shows normal wall thickening and contraction of segments. Resting study shows diminished tracer uptake in the apex and immediate adjacent areas at the anterior apex and inferior apex. There is improvement with CT attenuation correction suggestive of soft tissue attenuation artifact. Gating at rest reveals normal wall motion with ejection fraction at 68%. The findings are consistent with no clear reversible defects. Fixed apical defect, suspected to be from soft tissue attenuation artifact. NM/NM keli perf SPECT rest & str Impression: 1. Myocardial perfusion imaging study shows no clear evidence of any ischemia or infarction. Probably normal perfusion. 2. Gated LVEF is 58% during stress and rest. 3. Transient ischemic dilatation not present. EKG component of the test reported separately.
--- NOTE | ~2022-11-30 | XR_ITS ---
EXAMINATION: XR CHEST CLINICAL INFORMATION: Diaphragmatic hernia without obstruction or gangrene. COMPARISON: 09/17/2021 TECHNIQUE: 2 views of the chest were obtained. FINDINGS: The lungs are well expanded. There is no focal consolidation, edema, or effusion. No pneumothorax. The cardiomediastinal silhouette is within normal limits. No acute osseous abnormality. XR/XR chest 2V IMPRESSION: Clear lungs.
--- NOTE | 2022-11-30 07:42 | CA_ITS ---
Acquisition Time: 2022-11-30 08:55:37 Total Exercise Time: 00:02:00 Test Indications: Medications: Protocol: LEXISCAN Max HR: 091 BPM 63% of Pred: 143 BPM Max BP: 122/068 mmHG Max Work Load: 1.0 METS Pharmacological stress test with Lexiscan injection, while sitting and kicking her legs, with 8/10 upper chest heaviness, without arrythmia, with normotensive response to injection, with nondiagnostic EKG for ischemia. In recovery her chest heaviness resolved. Nuclear images pending. Test reviewed with Dr Infante. Referred By: Simeon Cortes Overread By: DAVE ENGLAND
== END ==
LOC: HO.CARD 07:39
PROVIDERS: PCP Internal Medicine; Visit Provider Surgery
DX: Z01.818 Encounter for other preprocedural examination (principal); E66.01 Morbid (severe) obesity due to excess calories; I10 Essential (primary) hypertension; I25.10 Atherosclerotic heart disease of native coronary artery without angina pectoris; K44.9 Diaphragmatic hernia without obstruction or gangrene
CPT/HCPCS: 71046; 78452; 93017; A9500; J0280; J2785

== ENCOUNTER 2022-12-03 12:08 | Outpatient (REF) | payer MEDICARE, SELFPAY ==
--- NOTE | ~2022-12-03 | US_ITS ---
EXAMINATION: US COMPLETE ABDOMEN WITH LIVER ELASTOGRAPHY CLINICAL INFORMATION: Obesity. COMPARISON: MRI of 07/31/2007 and ultrasound of 07/10/2007. TECHNIQUE: Real-time imaging of the abdominal viscera. Noninvasive ultrasound liver fibrosis assessment is performed using Reilly ElastPQ point quantification shear wave elastography (2D-SWE) with a C5-2 MHz transducer. Multiple elastography samples are obtained. FINDINGS: PANCREAS: Normal. The visualized pancreatic head and body are normal in appearance. The remainder of the pancreas is obscured from visualization by the overlying bowel gas. ABDOMINAL AORTA: The proximal, middle, and distal aortic segments are normal in caliber. INFERIOR VENA CAVA: Visualized portions are normal. LIVER: There is increased echogenicity present. Liver is of normal size. No focal mass or intrahepatic bile duct dilatation is seen. The right lobe measures 13.5 cm in length. The left lobe measures 9.4 cm in length. Portal flow is hepatopedal. Shear wave liver elastography median stiffness is 1.44 m/s (reference: normal median stiffness is 1.3 m/s or less). IQR/median stiffness to assess sampling precision is 0.12 (reference: good quality data set is IQR/median stiffness of 0.15 or less). GALLBLADDER: Status post cholecystectomy. COMMON BILE DUCT: Dilated measuring 1.3 cm in diameter. This is likely a normal finding status post cholecystectomy. RIGHT KIDNEY: Normal. No hydronephrosis. No renal calculi or focal solid parenchymal lesions. The kidney measures 10.9 cm in maximum dimension. There is a subcentimeter mid pole cyst which does not require follow-up. LEFT KIDNEY: Normal. No hydronephrosis. No renal calculi or focal parenchymal lesions. Known angiomyolipoma is not identified on provided imaging. The kidney measures 13.4 cm in maximum dimension. SPLEEN: The spleen is prominent and measures 12.9 cm in maximum dimension. FREE FLUID: None. US/US abdomen comp w elastography IMPRESSION: 1. Increased echogenicity of the liver consistent with fatty infiltration. 2. Status post cholecystectomy with prominent common bile duct at 1.3 cm in diameter. 3. Right renal subcentimeter cyst for which follow-up is not necessary. 4. Liver elastography: In the absence of other known clinical signs, measurements rule out compensated advanced chronic liver disease. If there are known clinical signs, further testing may be needed for confirmation. REFERENCE: Society of Radiologists in Ultrasound Liver Stiffness Thresholds (2020): LIVER STIFFNESS THRESHOLDS: *Liver Stiffness equal or less than 1.3 m/s: High probability of being normal. *Liver Stiffness less than 1.7 m/s: In the absence of other known clinical signs, rules out compensated advanced chronic liver disease. *Liver Stiffness 1.7-2.1 m/s: Suggestive of compensated advanced chronic liver disease but need further test for confirmation. *Liver Stiffness over 2.1 m/s: Rules in compensated advanced chronic liver disease. *Liver Stiffness over 2.4 m/s: Suggestive of clinically significant portal hypertension. QUALITY OF DATA SET: *IQR/Median value equal or less than 0.15 implies a quality data set. *IQR/Median value over 0.15 implies a poor quality data set. SIGNIFICANT CHANGE FROM PRIOR EXAM: Significant change if liver stiffness measurement is 10% or greater from prior exam. OTHER CONSIDERATIONS: The stage of liver fibrosis may be overestimated in the setting of acute hepatitis, liver inflammation, elevated liver function tests, hepatic vascular congestion, obstructive cholestasis, non-fasting state, and infiltrative diseases such as amyloidosis and lymphoma. In some patients with NAFLD, the liver stiffness thresholds for compensated advanced chronic liver disease may be lower. In causes other than viral hepatitis and NAFLD, liver stiffness thresholds are not well established.
== END 2022-12-03 12:09 | disposition home or self-care (01) ==
LOC: HO.US 12:08
PROVIDERS: PCP Internal Medicine; Visit Provider Surgery
DX: E66.9 Obesity, unspecified (principal); Z68.35 Body mass index [BMI] 35.0-35.9, adult
CPT/HCPCS: 76705; 76981

== ENCOUNTER 2022-12-13 05:36 | Outpatient (REF) | payer MEDICARE, SELFPAY ==
--- NOTE | ~2022-12-13 | XR_ITS ---
EXAMINATION: XR HIP, RIGHT CLINICAL INFORMATION: Pain. Hip fracture. COMPARISON: Previous x-ray most recent December 2021 TECHNIQUE: Two views of the right hip and one view of the pelvis. FINDINGS: There is an intramedullary savannah and compression/lag screw in the right proximal femur. Fracture line no longer seen suggestive of a healed intertrochanteric fracture. Orthopedic hardware and alignment appears unchanged. There is mild arthritis at bilateral hip and knee joints. Bones of the pelvis are normal. Soft tissues are normal. XR/XR hip RT w PEL1V IMPRESSION: Healed right femoral intertrochanteric fracture.
== END 2022-12-13 05:37 | disposition home or self-care (01) ==
LOC: HO.HOSX 05:36
PROVIDERS: Visit Provider Physician Assistant
DX: M70.61 Trochanteric bursitis, right hip (principal); S72.001D Fracture of unspecified part of neck of right femur, subsequent encounter for closed fracture with routine healing
CPT/HCPCS: 73502; 99212

== ENCOUNTER → 2023-01-03 13:19 | Outpatient (BNVA) | payer MEDICARE, SELFPAY | PROVIDERS: PCP Internal Medicine; Visit Provider Nurse Practitioner Family | DX: R13.19 Other dysphagia (principal); K59.01 Slow transit constipation; K44.9 Diaphragmatic hernia without obstruction or gangrene | CPT/HCPCS: 99212 ==

== ENCOUNTER → 2023-01-11 10:45 | Outpatient (BNVA) | payer MEDICARE, SELFPAY | PROVIDERS: PCP Internal Medicine; Visit Provider Surgery | DX: K59.00 Constipation, unspecified (principal); K44.9 Diaphragmatic hernia without obstruction or gangrene | CPT/HCPCS: 99212 ==

== ENCOUNTER → 2023-01-23 08:45 | Outpatient (BNVA) | payer MEDICARE, SELFPAY | PROVIDERS: PCP Internal Medicine; Visit Provider Surgery | DX: Z01.818 Encounter for other preprocedural examination (principal); K44.9 Diaphragmatic hernia without obstruction or gangrene; E66.9 Obesity, unspecified; I10 Essential (primary) hypertension; Z68.33 Body mass index [BMI] 33.0-33.9, adult; Z20.822 Contact with and (suspected) exposure to COVID-19; Z90.49 Acquired absence of other specified parts of digestive tract | CPT/HCPCS: Q3014 ==

== ENCOUNTER 2023-01-30 12:49 | Outpatient (REF) | payer MEDICARE, SELFPAY ==
--- NOTE | ~2023-01-30 | CT_ITS ---
EXAMINATION: CT ABDOMEN AND PELVIS WITH CONTRAST CLINICAL INFORMATION: Diaphragmatic hernia COMPARISON: Previous CT of the abdomen and pelvis and MR of the abdomen from 2006 TECHNIQUE: Multidetector volumetric images were obtained from the superior aspect of the liver through the pubic symphysis following administration 85 mL of Omnipaque 350 intravenous contrast. Sagittal and coronal reformatted images were obtained on the technologist's workstation. Oral contrast: Yes This CT examination was performed using dose optimization techniques as appropriate, variously including the following: *Automated exposure control *Adjustment of mA and/or kV according to patient size (this includes techniques or standardized protocols for targeted exams where dose is matched to indication/reason for exam; i.e. extremities or head) *Use of iterative reconstruction technique DLP: 591 mGy-cm FINDINGS: LUNG BASES: The visualized lung bases are unremarkable. LIVER, GALLBLADDER, AND BILIARY TREE: The liver is normal in size, shape, and attenuation. No focal hepatic lesion or biliary ductal dilatation is present. The gallbladder has been removed. PANCREAS: Unremarkable. SPLEEN: Unremarkable. ADRENAL GLANDS: Unremarkable. KIDNEYS AND URETERS: Duplicated left renal collecting system. No hydronephrosis, hydroureter, or calculi seen. No perinephric stranding. Subcentimeter low-attenuation lesion in the lower pole of the left kidney. 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 Small bilateral renal cysts. Left lower renal peripelvic cysts. Increasing low-attenuation lesion exophytic to the lateral midpole of the right kidney measuring 5 mm for example axial image 30 series 3 and coronal reconstructed image 71 series 7. Hounsfield units difficult to obtain due to small size but measure greater than that of expected for a simple cyst. This is not seen on recent abdominal ultrasound from December 2022. Follow-up dedicated CT or MR of the kidneys with and without IV contrast should be considered. BLADDER: Unremarkable. GASTROINTESTINAL TRACT: Moderate size hiatal hernia. Widened diaphragmatic hiatus measuring 4 cm. There is question of wall thickening of the visualized distal thoracic esophagus. Diverticulosis of the colon. There is wall thickening of the sigmoid colon and it is difficult to exclude mild sigmoid diverticulitis. Normal small bowel. Appendix not seen.. ABDOMINAL WALL: No significant hernia is appreciated. LYMPH NODES: Normal. VASCULAR: Unremarkable. PELVIC VISCERA: Uterus appears to have been removed. OSSEOUS STRUCTURES: Degenerative changes. Mild L2 vertebral body compression fracture that appears old but is new in the interval from 2007 exams. Orthopedic hardware in the right proximal femur. Mild arthritis at the hip joints. CT/CT abdomen pelvis w IV con IMPRESSION: Moderate-sized hiatal hernia. Question of mild wall thickening of the distal thoracic esophagus. Severe diverticulosis. Wall thickening of the sigmoid colon. It is difficult to exclude mild sigmoid diverticulitis. Duplicated left renal collecting system. Bilateral renal cysts. 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 Increasing subcentimeter indeterminate lesion exophytic to the midpole of the right kidney. This was not seen on recent ultrasound. Dedicated follow-up renal imaging recommended. Fleischner guidelines were followed.
[2023-01-30] MEDS: iohexoL 350 MG/ML 100 ML INFUS..BTL 85 ML IV (15:29)
[2023-01-30] MEDS: Barium Sulfate Oral (Mocha) 450 ML ORAL.SUSP 900 ML PO (15:30)
== END 2023-01-30 12:50 | disposition home or self-care (01) ==
LOC: HO.CT 12:49
PROVIDERS: PCP Internal Medicine; Visit Provider Surgery
DX: K44.9 Diaphragmatic hernia without obstruction or gangrene (principal)
CPT/HCPCS: 74177; Q9967

== ENCOUNTER 2023-02-05 06:00 | Inpatient (IN) | payer MEDICARE, SELFPAY ==
[2023-01-24 07:40] LABS: MANUAL DIFF FLAG NO
[2023-01-24 07:58] LABS: Basophils Absolute Auto 0.1 X10*3/uL (0.0-0.2); Basophils Percent Auto 0.9 % (0-2); Eosinophils Absolute Auto 0.1 X10*3/uL (0.0-0.4); Eosinophils Percent Auto 2.4 % (0-4); Hematocrit 40.5 % (37.0-47.0); Hemoglobin 13.2 g/dl (12.0-16.0); Imm Gran Abs Auto 0.01 X10*3/uL (0.00-0.03); Imm Gran Pct Auto 0.2 % (0.0-0.4); Lymphocytes Absolute Auto 2.2 X10*3/uL (1.2-4.9); Lymphocytes Percent Auto 40.5 % (20-40); Mean Corpuscular HGB Conc 32.6 g/dl (31.0-35.0); Mean Corpuscular Hemoglobin 28.8 pg (27.0-33.0); Mean Corpuscular Volume 88.2 fL (80.0-98.0); Mean Platelet Volume 9.5 fL (9.4-12.3); Monocytes Absolute Auto 0.6 X10*3/uL (0.1-1.2); Monocytes Percent Auto 11.1 % (2-11); Neutrophils Absolute Auto 2.4 x10*3/uL (2.0-8.3); Neutrophils Percent Auto 44.9 % (45-73); Platelet Count 301 X10*3/uL (160-400); Red Blood Count 4.59 X10*6/uL (4.20-5.50); Red Cell Distribution Width 12.4 % (11.0-16.0); White Blood Count 5.3 X10*3/uL (4.8-10.8)
[2023-01-24 08:04] LABS: INTERNATIONAL NORM RATIO 1.1 (0.9-1.1); Prothrombin Time 12.1 SEC (10.0-13.1)
[2023-01-24 08:06] LABS: Partial Thromboplastin Time 31.2 SEC (26.0-36.4)
[2023-01-24 08:12] LABS: Estimated Average Glucose 91 mg/dL; Hemoglobin A1c % 4.8 %
[2023-01-24 08:33] LABS: Alanine Aminotransferase 17 U/L (0-31); Albumin Level 4.1 g/dL (3.5-5.0); Alkaline Phosphatase 82 U/L (39-117); Anion Gap 12 (12-20); Aspartate Amino Transferase 20 U/L (5-31); Bilirubin Total 0.6 mg/dL (0.0-1.0); Blood Urea Nitrogen 19 mg/dL (9-16); C Reactive Protein 0.73 mg/dL (< or = 0.50); Calcium 9.4 mg/dL (8.4-10.2); Carbon Dioxide 27 mmol/L (22-29); Chloride 107 mmol/L (96-108); Cholesterol 178 mg/dL; Estimated Glomerular Filt Rate 59; Glucose Random 94 mg/dL (60-115); HDL Cholesterol 56 mg/dL; LDL Cholesterol Calculated 104 mg/dl; Potassium 4.1 mmol/L (3.3-5.1); Sodium 142 mmol/L (135-145); Triglycerides 90 mg/dL
[2023-01-24 08:48] LABS: Insulin 7 uU/mL (2-29); TSH reflex Free T4 2.33 uIU/mL (0.32-4.0)
[2023-01-29 10:12] VITALS: BMI 35.2
--- NOTE | 2023-02-02 12:58 | P.HPSUR_ITS ---
Pre-Procedural Eval Section A Date of Service: 02/02/23 The patient is an INPATIENT: Yes The History & Physical has been completed within 30 days and I have reviewed it.: Yes Section B Chief Complaint: Diaphragmatic hernia without obstruction or gangre Relevant Family History (Specify if Yes): No Relevant Social History: None Present Medications: None Medical History: No relevant PMH History of Previous Operations: Relevant previous surgery/procedure and date(s) (open cholecystectomy) Allergies: Allergies Allergy/AdvReac Type Severity Reaction Status Date / Time codeine [CODEINE] Allergy Intermediate RASH Verified 01/23/23 08:51 Review of Systems Sugical H&P ROS: Negative: Constitution, Cardiovascular, Respiratory, Neurological, Psychiatric, Hem-Onc, Allergic/Immunologic, Gastrointestinal, Genitourinary, Musculoskeletal, Integumentary, Endocrine and Eyes/Ears/Nose/Throat Exam Surgical H&P Exam: Normal: HEENT, Normal: Heart, Normal: Lungs, Normal: Ext remities, Normal: Abdomen, Normal: Skin and Normal: Neurological Plan Diagnosis/Plan: Unchanged I have reviewed the history and physical and performed a pertinent physical examination on my patient. No changes have occurred unless specified. Time Spent With Patient Time: Total time managing care of this patient today ____ minutes.
--- NOTE | 2023-02-04 09:43 | P.CONAN_ITS ---
Documented by User: Linette Bey NP 02/04/23 09:45 HPI - Anesthesia Eval Consult details Narrative: 77yo F for Hernia Repair Diaphragmatic Laparoscopic [place] [facility] [place]. Last seen 03/2022 [facility] Active Problems Active Problems: All Active Problems (Updated 01/29/23 @ 09:56 by Yadi Patel RN) Closed fracture of right hip (Acute) Acute UTI (Acute) Surgical site infection (Acute) Trochanteric bursitis, right hip (Acute) Diaphragmatic hernia without mention of obstruction or gangrene (Acute) Anemia (Acute) Constipation (Acute) Pre-procedural examination (Acute) BMI 35.0-35.9,adult (Acute) Obesity (Acute) Dysphagia (Acute) HTN (hypertension) (Acute) CAD (coronary artery disease) (Acute) Past Medical History Medical History Angina pectoris Arthritis Back pain BMI 35.0-35.9,adult CAD (coronary artery disease) DJD (degenerative joint disease) Dysphagia GERD (gastroesophageal reflux disease) Hiatal hernia History of MRSA infection HTN (hypertension) Hyperlipidemia Obesity On beta tone at home Paraesophageal hernia Sleep apnea Steatosis, liver Family History Family History Father Cancer Mother CHF (congestive heart failure) Family history of problems with anesthesia: No Surgical History Surgical History History of esophagogastroduodenoscopy (EGD) History of hip surgery Hx of cardiac cath (~2019) Hx of cholecystectomy Hx of hysterectomy History of Problems with Anesthesia: No Social History Social History Household Members: Family Household Members Other:: 6 Housing: House Are you a primary adult care provider to a significant other at home: No Do you presently have visiting nurse or other home services: No Alcohol intake: never Patient Tobacco Use Status: Never used Tobacco e-Cigarette/Vaping Use: Never Used Use of substances other than those prescribed or required for medical reasons: No Have you been hit, kicked, punched, or otherwise hurt by someone within the past year? 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 Meds Allergies Allergy/AdvReac Type Severity Reaction Status Date / Time codeine [CODEINE] Allergy Intermediate RASH Verified 02/05/23 07:48 Home Medications Medication Instructions Recorded Confirmed Last Taken Type calcium 600 mg-D3 800 unit-mag11 1 tab PO DAILY 08/29/20 01/29/23 10/10/21 History 50 fh-lxmm-polrdj-gabi-s.borat tablet (Caltrate 600-D Plus Minerals) gabapentin 100 mg capsule 200 mg PO TID 10/10/21 01/25/23 11/08/22 05:00 History isosorbide mononitrate 30 mg 2 tab PO DAILY 10/10/21 01/29/23 02/05/23 History tablet,extended release 24 hr multivitamin 1 tab PO DAILY 10/10/21 01/25/23 10/10/21 History hydrochlorothiazide 12.5 mg capsule 1 cap PO DAILY PRN BP > 140/80 03/12/22 01/29/23 10/07/21 History lisinopril 10 mg tablet 10 mg PO DAILY 03/12/22 01/29/23 Unknown History amlodipine 5 mg tablet 5 mg PO DAILY 12/13/22 01/25/23 02/05/23 History simvastatin 20 mg tablet 20 mg PO BEDTIME 12/13/22 01/25/23 Unknown History docusate sodium 100 mg capsule 100 mg PO Q OTHER DAY 01/29/23 01/29/23 Unknown History (Colace) Exam Exam Date and Time: February 04, 2023 0943 Height,Weight and Vital Signs: Height 5 ft 7 in Weight 102.058 kg Pertinent Lab Results Pertinent Lab Results: Laboratory Tests 01/24/23 01/24/23 01/24/23 07:35 07:39 07:39 WBC 5.3 RBC 4.59 D Hgb 13.2 Hct 40.5 MCV 88.2 MCH 28.8 MCHC 32.6 RDW 12.4 Plt Count 301 MPV 9.5 Immature Gran % (Auto) 0.2 Neut % (Auto) 44.9 L Lymph % (Auto) 40.5 H Forsyth % (Auto) 11.1 H Eos % (Auto) 2.4 Baso % (Auto) 0.9 Lymph # (Auto) 2.2 Forsyth # (Auto) 0.6 Eos # (Auto) 0.1 Baso # (Auto) 0.1 Abs Immat Gran (auto) 0.01 Absolute Neuts (auto) 2.4 Absolute Nucleated RBC 0.000 Nucleated RBC % (auto) 0.0 PT 12.1 INR 1.1 APTT 31.2 Sodium Potassium Chloride Carbon Dioxide Anion Gap BUN Creatinine Estim Creat Clear Calc Estimated GFR Random Glucose Estimat Average Glucose Hemoglobin A1c % Insulin Level Calcium Total Bilirubin AST ALT Alkaline Phosphatase C-Reactive Protein Total Protein Albumin Triglycerides Cholesterol LDL Cholesterol, Calc HDL Cholesterol TSH Blood Type A Positive Antibody Screen NEGATIVE 01/24/23 01/24/23 07:39 07:39 WBC RBC Hgb Hct MCV MCH MCHC RDW Plt Count MPV Immature Gran % (Auto) Neut % (Auto) Lymph % (Auto) Forsyth % (Auto) Eos % (Auto) Baso % (Auto) Lymph # (Auto) Forsyth # (Auto) Eos # (Auto) Baso # (Auto) Abs Immat Gran (auto) Absolute Neuts (auto) Absolute Nucleated RBC Nucleated RBC % (auto) PT INR APTT Sodium 142 Potassium 4.1 Chloride 107 Carbon Dioxide 27 Anion Gap 12 BUN 19 H Creatinine 0.92 Estim Creat Clear Calc TNP Estimated GFR 59 Random Glucose 94 Estimat Average Glucose 91 Hemoglobin A1c % 4.8 Insulin Level 7 Calcium 9.4 Total Bilirubin 0.6 AST 20 ALT 17 Alkaline Phosphatase 82 C-Reactive Protein 0.73 H Total Protein 7.0 Albumin 4.1 Triglycerides 90 Cholesterol 178 LDL Cholesterol, Calc 104 HDL Cholesterol 56 TSH 2.33 Blood Type Antibody Screen Narrative Narrative: NM keli perf SPECT rest & str 12/2022 Impression: ? 1.? Myocardial perfusion imaging study shows no clear evidence of any ischemia or infarction. Probably normal perfusion. 2.? Gated LVEF is 58% during stress and rest. 3. Transient ischemic dilatation not present. ? EKG component of the test reported separately. ECHO 10/2022 Conclusions: - 1. Normal LV systolic function with impaired relaxation filling pattern? 2. Normal cardiac valvular Doppler ? 3. No gross pericardial effusion ? Assessment and Plan Assessment Anesthesia Assessment: Chart Reviewed Final Anesthetic Review Family History of Problems with Anesthesia: No History of Problems with Anesthesia: No Documented by User: Carmita Wick MD 02/05/23 08:32 [facility] Active Problems Active Problems: All Active Problems (Updated 02/05/23 @ 07:34 by Carmita Wick MD)) Closed fracture of right hip (Acute) Trochanteric bursitis, right hip (Acute) Diaphragmatic hernia without mention of obstruction or gangrene (Acute) Anemia (Acute) Constipation (Acute) Pre-procedural examination (Acute) BMI 35.0-35.9,adult (Acute) Obesity (Acute) Dysphagia (Acute) HTN (hypertension) (Acute) CAD (coronary artery disease) (Acute). Denies recent chest pain Patient suspects may have ROBERT but never tested Past Medical History Medical History Angina pectoris Arthritis Back pain BMI 35.0-35.9,adult CAD (coronary artery disease) DJD (degenerative joint disease) Dysphagia GERD (gastroesophageal reflux disease) Hiatal hernia History of MRSA infection HTN (hypertension) Hyperlipidemia Obesity On beta tone at home Paraesophageal hernia Sleep apnea Steatosis, liver Family History Family History Father Cancer Mother CHF (congestive heart failure) Surgical History Surgical History History of esophagogastroduodenoscopy (EGD) History of hip surgery Hx of cardiac cath (~2019) Hx of cholecystectomy Hx of hysterectomy Social History Social History Household Members: Family Household Members Other:: 6 Housing: House Are you a primary adult care provider to a significant other at home: No Do you presently have visiting nurse or other home services: No Alcohol intake: never Patient Tobacco Use Status: Never used Tobacco e-Cigarette/Vaping Use: Never Used Use of substances other than those prescribed or required for medical reasons: No Have you been hit, kicked, punched, or otherwise hurt by someone within the past year? 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 [employer] Allergies Allergy/AdvReac Type Severity Reaction Status Date / Time codeine [CODEINE] Allergy Intermediate RASH Verified 02/05/23 07:48 Home Medications Medication Instructions Recorded Confirmed Last Taken Type calcium 600 mg-D3 800 unit-mag11 1 tab PO DAILY 08/29/20 01/29/23 10/10/21 History 50 wv-pdzh-oddnzw-gabi-s.borat tablet (Caltrate 600-D Plus Minerals) gabapentin 100 mg capsule 200 mg PO TID 10/10/21 01/25/23 11/08/22 05:00 History isosorbide mononitrate 30 mg 2 tab PO DAILY 10/10/21 01/29/23 02/05/23 History tablet,extended release 24 hr multivitamin 1 tab PO DAILY 10/10/21 01/25/23 10/10/21 History hydrochlorothiazide 12.5 mg capsule 1 cap PO DAILY PRN BP > 140/80 03/12/22 01/29/23 10/07/21 History lisinopril 10 mg tablet 10 mg PO DAILY 03/12/22 01/29/23 Unknown History amlodipine 5 mg tablet 5 mg PO DAILY 12/13/22 01/25/23 02/05/23 History simvastatin 20 mg tablet 20 mg PO BEDTIME 12/13/22 01/25/23 Unknown History docusate sodium 100 mg capsule 100 mg PO Q OTHER DAY 01/29/23 01/29/23 Unknown History (Colace) Exam Height,Weight and Vital Signs: Height 5 ft 7 in Weight 102.058 kg Vital Signs Temp Pulse Resp BP Pulse Ox O2 Del Method 02/05/23 06:24 97.6 F 70 18 150/62 H 97 Room Air Pertinent Lab Results Pertinent Lab Results: Laboratory Tests 01/24/23 01/24/23 01/24/23 07:35 07:39 07:39 WBC 5.3 RBC 4.59 D Hgb 13.2 Hct 40.5 MCV 88.2 MCH 28.8 MCHC 32.6 RDW 12.4 Plt Count 301 MPV 9.5 Immature Gran % (Auto) 0.2 Neut % (Auto) 44.9 L Lymph % (Auto) 40.5 H Forsyth % (Auto) 11.1 H Eos % (Auto) 2.4 Baso % (Auto) 0.9 Lymph # (Auto) 2.2 Forsyth # (Auto) 0.6 Eos # (Auto) 0.1 Baso # (Auto) 0.1 Abs Immat Gran (auto) 0.01 Absolute Neuts (auto) 2.4 Absolute Nucleated RBC 0.000 Nucleated RBC % (auto) 0.0 PT 12.1 INR 1.1 APTT 31.2 Sodium Potassium Chloride Carbon Dioxide Anion Gap BUN Creatinine Estim Creat Clear Calc Estimated GFR Random Glucose Estimat Average Glucose Hemoglobin A1c % Insulin Level Calcium Total Bilirubin AST ALT Alkaline Phosphatase C-Reactive Protein Total Protein Albumin Triglycerides Cholesterol LDL Cholesterol, Calc HDL Cholesterol TSH Blood Type A Positive Antibody Screen NEGATIVE 01/24/23 01/24/23 07:39 07:39 WBC RBC Hgb Hct MCV MCH MCHC RDW Plt Count MPV Immature Gran % (Auto) Neut % (Auto) Lymph % (Auto) Forsyth % (Auto) Eos % (Auto) Baso % (Auto) Lymph # (Auto) Forsyth # (Auto) Eos # (Auto) Baso # (Auto) Abs Immat Gran (auto) Absolute Neuts (auto) Absolute Nucleated RBC Nucleated RBC % (auto) PT INR APTT Sodium 142 Potassium 4.1 Chloride 107 Carbon Dioxide 27 Anion Gap 12 BUN 19 H Creatinine 0.92 Estim Creat Clear Calc TNP Estimated GFR 59 Random Glucose 94 Estimat Average Glucose 91 Hemoglobin A1c % 4.8 Insulin Level 7 Calcium 9.4 Total Bilirubin 0.6 AST 20 ALT 17 Alkaline Phosphatase 82 C-Reactive Protein 0.73 H Total Protein 7.0 Albumin 4.1 Triglycerides 90 Cholesterol 178 LDL Cholesterol, Calc 104 HDL Cholesterol 56 TSH 2.33 Blood Type Antibody Screen Laboratory Results - last 48 hr 02/04/23 15:45 COVID-19 (FABIOLA) Negative COVID-19 Clin Com See Note Airway Mallampati Class: II TM Dist: >3cm Neck ROM: Full Loose/Missing/Broken Teeth: Yes (Some extractions. Denies broken or loose teeth) Heart: RRR Lungs: CTAB Assessment and Plan Assessment Anesthesia Assessment: Anesthesia Plan Discussed Final Anesthetic Review NPO: Yes ASA Class: III Final Preanesthetic Review: No Changes in Pt Med Stat, Meds/Allgs Chart Reviewed, Consent Obtained/Reviewed and Anes Risks/Benef Reviewed Patient Risk: Intermediate Procedure Risk: Intermediate Assessment/Block/Sedation in SS: Assess/Block/Sedation-SS Anesthetic Plan Anesthetic Plan: GA Disposition: Standard PACU and Inp. Admit - Standard Bed
[2023-02-04 16:35] LABS: COVID-19 Test Negative (Negative); IDNOW Serial# 08D9AD1C
[2023-02-05] VITALS (14 sets, daily range): BP systolic 115–156; BP diastolic 57–93; PULSE 60–88; RESP 11–20; TEMP 36–36.6; O2SAT 93–97
--- NOTE | 2023-02-05 | ECG_ITS ---
Test Reason : pre op Blood Pressure : / mmHG Vent. Rate : 064 BPM Atrial Rate : 064 BPM P-R Int : 184 ms QRS Dur : 088 ms QT Int : 404 ms P-R-T Axes : 043 -15 019 degrees QTc Int : 416 ms Sinus rhythm with occasional Premature ventricular complexes Low voltage QRS Possible Inferior infarct (cited on or before 23-JUN-2007) Cannot rule out Anterior infarct (cited on or before 23-JUN-2007) Abnormal ECG When compared with ECG of 17-SEP-2021 18:29, Premature ventricular complexes are now Present Referred By: Linette Bey Electronically Signed By:Olayinka Colunga
[2023-02-05] MEDS: Lactated Ringers 1,000 ML 100 ML IVCONT ×3 (06:27→21:46)
--- NOTE | 2023-02-05 07:09 | PHA.MEDREC ---
Pharmacy Consult ? Medication Reconciliation Pharmacy has completed the medication reconciliation. Reviewed med rec done by nursing
[2023-02-05] MEDS: Aprepitant 32 MG/4.4 ML VIAL IVPUSH (07:39)
--- NOTE | 2023-02-05 07:45 | PM.OP ---
Brief Operative Note Date of Service: 02/05/23 Pre-op diagnosis: Large paraesophageal hernia Post-op diagnosis: same Procedure: COMORBIDITIES: GERD, diaphragmatic hernia, CAD, hypertension,DJD, hyperlipidemia, liver steatosis ?INDICATIONS: The patient is a 77 year old female who was referred to me from Dr. Villarreal for a diaphragmatic hernia and GERD confirmed by EGD, CT-chest and UGI. The patient is scheduled today for diaphragmatic hernia repair. Risks of recurrent hernia, dysphagia, persistent GERD, VTE, leak, infection and bleeding were discussed with the patient and he is in agreement with the plan. PROCEDURE: Esophago-gastroscopy, extensive lysis of adhesions, laparoscopic repair of incarcerated diaphragmatic hernia and laparoscopic gastropexy DESCRIPTION OF PROCEDURE: After informed consent was obtained from the patient, the patient was given preoperative antibiotics, and was transferred to the operating room. After successful induction of general anesthesia, pneumatic compression devices were placed on both lower extremities. An upper endoscopy was performed next. The oropharynx and esophagus appeared to be within normal limits. There was a diaphragmatic hernia present of large size consistent with the findings of the preoperative upper GI. The esophageal diverticulum could not be visualized endoscopically. The stomach was entered. Then after all fluid and air were suctioned and the stomach was fully decompressed, the scope was withdrawn and secured in the mid esophagus. The patient was then prepped and draped in the usual sterile manner, and abdominal access was established at the left upper quadrant with the Veress needle due to a history of open cholecystectomy incision at the right upper quadrant. A 5 mm Versi-step port was inserted, and the abdomen was insufflated with CO2 to a pressure of 15 mmHg. Under direct visualization, additional ports were placed, specifically two 5 mm Versi-step ports to the left mid-flank and to the left of the umbilicus. These ports were extra in order to facilate the lysis of adhesions from the open cholecystectomy. The Thunderbeat was used to take down the adhesions at the right upper quadrant. Once this was done, additional ports were placed including a 5 mm Versi-step port at the left upper quadrant, and a 5 mm and a 12 mm Versi-Step ports to the right upper quadrant. 1% lidocaine plain was used to infiltrate all port sites as well as all fascia defects. Following that, the patient was placed in a steep reverse Trendelenburg position. An additional 5 mm port was placed to the right flank for the Mediflex retractor that was used to retract the left lobe of the liver. The gastro-esophageal fat pad was opened with the ultrasonic device (Thunderbeat, Olympus) and the anterior esophagus and hiatus were exposed. The angle of His was opened with the ultrasonic device the fundus of the stomach from any diaphragmatic and splenic attachments. I then opened the gastrocolic ligament between the transverse colon and the greater curvature of the stomach with the ultrasonic device to enter the lesser sac and facilitate the ligation of the short gastric vessels. I started at a mid-point along the greater curvature and using the Thunderbeat, all short gastric vessels were divided all the way to the angle of His until the left kamilah was completely dissected at its entirety. There was an obvious significant-sized hiatal hernia. I continued dissecting along the hiatus toward the left kamilah and the angle of His. There was a large replaced left hepatic artery which was carefully preserved. That made the dissection more challenging. Neveretheless, I fully mobilized the fat pad that was incarcerated in the hernia. I then continued by dissecting even further into the posterior retro-esophageal space all the way to the angle of His. I continued to mobilize the esophagus into the mediastinum circumferentially. Both vagal nerves were seen and preserved. At that point, I was able to have 5 cm of esophagus into the abdomen.? After I completely mobilized the esophagus from both the left and right kamilah and I had a good mobilization of the esophagus circumferentially, I closed the hernia defect with three interrupted #0 Surgidac sutures using the Endo Stitch device, two of which were placed posterior and one of which anterior to the esophagus. ? A gastropexy was then performed in order to prevent postoperative GERD and partial gastric volvulus. Several interrupted 2.0 Surgidac sutures were placed between the greater curvature of the dissected stomach and the previously divided greater omentum and gastro-colic ligament using the Endo-Stitch device. ?An upper endoscopy was performed. There was no narrowing at the GE junction or any esophageal injury. The scope was easily advanced all the way to the pylorus which was clearly visualized. There was no narrowing anywhere. At that point the gastroscope was withdrawn from the patient?s mouth while we were decompressing the bowel and the stomach from any remaining air. I looked into the lesser sac to see how the stomach was situating and it was situating well. There was no bleeding from the, spleen, or short gastric vessels. The Mediflex retractor was removed, and the undersurface of the liver was inspected and there was no bleeding. The patient was placed in supine position. I closed the fascial defect of the 12 mm port site with a figure of eight #1 Polysorb suture. Then 30cc of Ropivacaine plain with 10 mg of Dexamethasone were used to infiltrate the fascial closure as well as all skin incisions. A total of 7ml of Zynrelef was applied in the Maninder wound. At this point, the abdomen was deflated, all ports were removed under direct vision, and no bleeding was noted from any of the port sites. The skin incisions were irrigated with saline and were closed with 4-0 absorbable monofilament sutures. Steri-Strips and OpSites were used to cover all incisions. The patient was extubated and was transferred in stable condition to the recovery room for further care. I was present and performed all schultz parts of the procedure. Mr. 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 There were no residents to assist with this case. Gyu Cortes MD, PhD, FACS Surgeon: Simeon Cortes MD Surgeon: Simeon Cortes MD Anesthesia: GETA, local and other (TAP block and 7ml Zynrelef) Was an Merchandise Flow Team Leader used for this Procedure?: No Merchandise Flow Team Leader: Jairo Castellano Estimated blood loss (mL): 10 IV fluids (mL): 2,000 Urine output (mL): 150 Pathology: other (esophageal fat pad) Condition: stable Disposition: PACU
--- NOTE | 2023-02-05 07:47 | PC.NURSE ---
author verified with surgeon that he did want Aponvie IV given preop. IV attempts by and Heather GOMEZ. IV insertion by Dr. Zaidi.
--- NOTE | 2023-02-05 08:07 | PM.PNGS ---
Subjective Subjective Date of Service: 02/06/23 Interval history: Feels well. Mild incisional pain. She is tolerating phase 1 bariatric diet Physical Exam Vital Signs: Vital Signs: Last Vital Signs Temp 97.6 F 02/05/23 06:24 Pulse 70 02/05/23 06:24 Resp 18 02/05/23 06:24 BP 150/62 H 02/05/23 06:24 Pulse Ox 97 02/05/23 06:24 O2 Del Method Room Air 02/05/23 06:24 BMI result Body Mass Index 35.2 GI: Inspection: Yes normal to inspection, Yes incision (clean, dry and intact) and Yes obesity Palpation (GI): Soft to palpation Extrem: Right lower extremity: normal to inspection (no calf tenderness) Left lower extremity: normal to inspection (no calf tenderness) Objective Data Active Medications Lactated Ringer's (Lr) 1,000 mls @ 100 mls/hr IVCONT .Q10H LEXII Last Admin: 02/05/23 06:27 Dose: 100 mls/hr Documented By: HOLLIE Labs 01/24/23 07:39 01/24/23 07:39 Labs: Laboratory Results - last 24 hr 02/04/23 15:45 COVID-19 (FABIOLA) Negative COVID-19 Clin Com See Note Procedures Date of Service Date of Service: 02/06/23 Progress Note: A&P Assessment and plan (1) Obesity: Status: Acute Assessment and Plan: s/p laparoscopic diaphragmatic hernia repair, lysis of adhesions and gastropexy Doing well Will check am labs and if OK the patient will be discharged home (2) Paraesophageal hernia: Status: Acute (3) GERD (gastroesophageal reflux disease): Status: Acute (4) BMI 35.0-35.9,adult: Status: Acute (5) HTN (hypertension): Status: Acute (6) CAD (coronary artery disease): Status: Acute (7) Steatosis, liver: Status: Acute (8) Intra-abdominal adhesions: Status: Acute (9) DJD (degenerative joint disease): Status: Acute (10) S/P repair of paraesophageal hernia: Status: Acute Time Spent With Patient Time: Total time managing care of this patient today ____ minutes. Quality Stroke Does the patient have a stroke diagnosis?: No VTE Prior VTE?: No VTE Risk Level:: Surgical - moderate VTE Device Contraindication: N/A - Device Ordered VTE Drug Contraindication: Treatment Not Indicated
--- NOTE | 2023-02-05 11:55 | P.DS_ITS ---
DS: Providers Provider Date of Service: 02/06/23 Date of admission: 02/05/23 06:00 Primary care physician: Blade Hussein MD DS: Diagnosis Discharge Diagnosis (1) Obesity: Status: Acute (2) Paraesophageal hernia: Status: Acute (3) GERD (gastroesophageal reflux disease): Status: Acute (4) BMI 35.0-35.9,adult: Status: Acute (5) HTN (hypertension): Status: Acute (6) CAD (coronary artery disease): Status: Acute (7) Steatosis, liver: Status: Acute (8) Intra-abdominal adhesions: Status: Acute (9) DJD (degenerative joint disease): Status: Acute (10) S/P repair of paraesophageal hernia: Status: Acute DS: Summary Hospital Course Hospital Course: ADMITTING DIAGNOSIS: obesity, severe gerd, cad, htn, hld ? DISCHARGE DIAGNOSIS: same, s/p laparoscopic repair diaphragmatic hernia and lysis of adhesions ? PAST SURGICAL HISTORY: open cholecystectomy, hysterectomy, right hip fx ? PROCEDURE: upper endoscopy, laparoscopic repair of diaphragmatic hernia hernia and lysis of adhesions ? DISCHARGE SUMMARY: ? History of Present Illness: ? The patient is a?77 year-old woman with a BMI of?35.2 kg/m2 and associated co- morbidities as described above. The patient had extensive work-up,found to have significant hiatal hernia and was electively scheduled for laparoscopic, possibl e open repair of hiatal hernia and gastropexy. Risks and complications of the surgery were discussed with the patient in advance, particularly the possibility of , pulmonary embolism, anastomotic leak, bleeding, bowel injury, GERD, cardiac, renal or pulmonary complications. The patient understood all the risks and was in agreement with the surgical plan. ? Hospital Course: ? The patient underwent an uneventful laparoscopic repair of large diaphragmatic hiatal hernia, lysis of adhesions and gastropexy on the day of admission. Postoperatively, the patient was transferred to the surgical floor. The patient received IV Acetaminophen and IV dilaudid for pain control. Patient was started on bariatric phase 1 diet POD #0. On postoperative day one, the patient was feeling well without nausea, vomiting, fevers, or tachycardia. The patient had some mild incisional pain and the abdomen was soft. ? On the morning of postoperative day one, the patient was continued on 1 ounce of water or ice every half hour. During the day, the patient did fairly well, having some incisional pain, but able to ambulate adequately and to tolerate liquids well. ? Since the patient is doing well, we decided that the patient was ready to be discharged. The patient was given instructions to follow-up with me next week and to call my office for any fever over 101, persistent abdominal pain, nausea, vomiting, GERD, symptoms of DVT such as calf tenderness, or leg swelling, or pulmonary embolism such as chest pain or shortness of breath. The patient was also instructed to drink 40-60 ounces of liquids per day using the 1-ounce cups. The patient had been given prescriptions for Tylenol for pain, Zofran prn for nausea, and pantoprazole and carafate previously. The patient was encouraged to ambulate and use the incentive spirometer. The patient was allowed to shower, but no baths, and encouraged to stay active at home. All of these instructions were given to the patient personally. All questions were answered and the patient understood all instructions, the instructions were also given to the patient in print. Time Spent with Patient Time attestation: Total time managing care of this patient today ____ minutes. Discharge coordination time: Less than 30 minutes Quality: Safe Use of Opioids Does Pt have an Active Cancer Diagnosis on the Problem List?: No Quality: Stroke Does the patient have a stroke diagnosis?: No Physical Exam Vital Signs: Vital Signs: Last Vital Signs Temp 97.4 F 02/05/23 11:50 Pulse 66 02/05/23 11:50 Resp 14 02/05/23 11:50 BP 122/61 02/05/23 11:50 Pulse Ox 94 02/05/23 11:50 O2 Del Method Nasal Cannula wit h Capnography 02/05/23 11:50 O2 Flow Rate 4 02/05/23 11:50 BMI result Body Mass Index 35.2 DS: Data Data Completed and Pending Completed studies during hospitalization [Text1]: Procedures Reposition Right Upper Femur with Intramedullary Internal Fixation Device, Percutaneous Approach (09/17/21) Pending studies at discharge: Pending at discharge 02/05/23 11:12 Surgical [PTH] Routine Labs on day of discharge: Laboratory Results - last 24 hr 02/04/23 15:45 COVID-19 ([facility]) Negative COVID-19 Clin Com See Note Discharge Plan Discharge Anticipated Discharge Date/Time: 02/06/23 10:00 Patient Disposition: Home, Self-Care Discharge Diagnosis: s/p laparoscopic repair of diaphragmatic hernia and lysis of adhesions Referrals: Blade Hussein MD [Primary Care Provider] - 1 Week Discharge Medications: Continued metoprolol succinate 50 mg tablet extended release 24 hr 50 mg PO DAILY Qty: 90 3RF multivitamin Tablet 1 tab PO DAILY isosorbide mononitrate 30 mg tablet extended release 24 hr 2 tab PO DAILY gabapentin 100 mg capsule 200 mg PO TID hydrochlorothiazide 12.5 mg capsule 1 cap PO DAILY PRN (Reason: BP > 140/80) docusate sodium [Colace] 100 mg capsule 100 mg PO Q OTHER DAY Caltrate 600-D Plus Minerals 600 mg calcium- 800 unit-50 mg tablet 1 tab PO DAILY Rx Instructions: give with meal/snack Vitron-C 65 mg iron- 125 mg tablet,delayed release (DR/EC) 1 tab PO DAILY Qty: 30 2RF Rx Instructions: swallow whole; do not chew/break/dissolve/open lisinopril 10 mg tablet 10 mg PO DAILY amlodipine 5 mg tablet 5 mg PO DAILY simvastatin 20 mg tablet 20 mg PO BEDTIME Discontinued polyethylene glycol 3350 [Miralax] 17 gram/dose powder 17 g PO DAILY Qty: 510 2RF Activity on Discharge: No heavy lifting Stand Alone Forms: Patient Portal Discharge page Care Plan Goals: improved reflux and dysphagia Health Concerns: severe gerd, dysphagia Plan of Treatment: No tub baths, sex or returning to work until discussed at first post op appointment. No exercise, alcohol, tobacco or illegal drug use. Continue to use incentive spirometer hourly while awake. Walk in home for 5- 10 minutes every 2 hours during the first week. Follow all instructions in the bariatric handbook and call with any questions.Discharge Instructions 1. Please call your doctor or come back to the emergency room should any new symptoms arise. 2. You will receive a courtesy call from [facility] 24-48 hours after discharge. 3. Activity: abstain from alcohol, practice limited stair climbing, no bending, no driving, no exercise, no illicit substances, no lifting, no sex, no tub bath, no work. 4. Diet: continue as discussed with Dr. Cortes. 5. Dressing Change/Wound Care: Your incision is covered by clear bandages and guaze underneath. If the area is tender, you may apply an ice pack for short intervals (no more than 20 minutes on, followed by at least 20 minutes off). Do not apply heat. Do not use creams, lotions, or topical antibiotics unless instructed to do so by your surgeon. These can cause infection or allergic reaction. 6. Call your doctor if: - Your temperature exceeds 101.5 F - You experience excessive pain or swelling - You have an unexpected reaction to medication - You have excessive bleeding - You experience continued vomiting/nausea - Your incision begins to separate - Your incision shows signs of infection such as increased redness, swelling, excessive pain, heat, or drainage (light blood or clear fluid is normal) 7. General instructions: No lifting greater than 5 lbs for the next 4 weeks. No driving within 24 hours of taking narcotic pain medications. If you do not move your bowels in the next 2 days, please take milk of magnesia over the counter. Please follow the post op diet and do not advance your diet until you are seen in the office in about 2 weeks. Please walk around your home every hour or two to prevent blood clots from forming in your legs. You do not need to wake from sleeping to walk. Please sleep in a bed or couch to prevent kinking at the hips and knees. Please take your incentive spirometer (your lung manual training teacher) home with you and use it for the next few days to prevent pneumonias. You may shower, no hot tubs, baths or swimming pools. Please call the office with any questions or concerns such as increasing abdominal pain, fever, chills, shortness of breath, chest pain, leg pain or swelling, or redness or drainage from your incisions. Please stay on stage 3 diet which includes sugar free clear liquids such as ice pops and jello and broth and crystal light. Avoid all carbonation. Please drink 3 protein shakes with at least 25-30 grams of protein daily or 3 of the Celebrate 4:1 shakes which can be purchased in our office. The Celebrate shakes have all of the bariatric vitamins you need if you consume these shakes. If you are drinking other protein shakes, you will need to purchase the Celebrate multivitamins and calcium that we provide in the office (they will provide all the vitamins you need). Please make sure you are consuming at least 40-60 ounces of water in addition to your 3 protein shakes daily. Do not hesitate to contact the office with any questions at . The patient's medical history has been reviewed and they are considered low risk for post op DVT and therefore DVT prophylaxis is not considered necessary. Travel after surgery was reviewed. The patient has not disclosed any travel plans during the first 30 days after surgery and they have been advised that within the first 30 days after surgery any bus, plane, train or car travel over 2 hours in duration is contraindicated due to the possibility of developing blood clots from immobility. Any travel, needs to include periods of ambulation of 10 minutes in duration every 2 hours.? The patient was instructed to discuss any plans for travel during this period with their bariatric surgeon. Assessment: stable, s/p laparoscopic repair of diaphragmatic hernia, gastropexy and lysis of adhesions
[2023-02-05] MEDS: HYDROmorphone HCl 0.5 MG/0.5 ML SYRINGE 0.25 MG IVPUSH ×2 (12:04→12:11)
[2023-02-05 12:12] LABS: Hemoglobin 12.5 g/dl (12.0-16.0)
[2023-02-05] MEDS: fentaNYL citrate/PF 100 MCG/2 ML VIAL 25 MCG IVPUSH (12:21)
[2023-02-05 12:25] LABS: Anion Gap 12 (12-20); Blood Urea Nitrogen 15 mg/dL (9-16); Calcium 8.6 mg/dL (8.4-10.2); Carbon Dioxide 24 mmol/L (22-29); Chloride 107 mmol/L (96-108); Creatinine Clr Calc Pharmacy 52.1; Estimated Glomerular Filt Rate 48; Glucose Random 147 mg/dL (60-115); Potassium 4.2 mmol/L (3.3-5.1); Sodium 139 mmol/L (135-145)
[2023-02-05] MEDS: ceFAZolin Sodium/Dextrose,Iso 2 GM/50 ML PIGGYBACK IV (14:45)
[2023-02-05] MEDS: 0.9 % Sodium Chloride Flush 3 ML SYRINGE IVFLUSH ×2 (14:45→20:02)
[2023-02-05] MEDS: Acetaminophen 1,000 MG/100 ML PIGGYBACK 16.7 MG IV ×2 (16:27→21:45)
[2023-02-05] MEDS: Acetylcysteine 10 % 400 MG/4 ML VIAL INHALE (19:42)
[2023-02-05] MEDS: Albuterol Sulfate (0.083%) 2.5 MG/3 ML VIAL.NEB INHALE (19:42)
[2023-02-05] MEDS: Famotidine/PF 20 MG/2 ML VIAL IVPUSH (20:02)
[2023-02-05] MEDS: ondansetron HCL 4 MG/2 ML VIAL IVPUSH (20:02)
[2023-02-05] MEDS: Melatonin 3 MG TABLET PO (20:02)
--- NOTE | 2023-02-06 | ECG_ITS ---
Test Reason : chest pain Blood Pressure : / mmHG Vent. Rate : 098 BPM Atrial Rate : 098 BPM P-R Int : 190 ms QRS Dur : 086 ms QT Int : 358 ms P-R-T Axes : 049 029 011 degrees QTc Int : 457 ms Normal sinus rhythm Low voltage QRS Inferior infarct (cited on or before 23-JUN-2007) Possible Anterolateral infarct (cited on or before 17-SEP-2021) Abnormal ECG When compared with ECG of 05-FEB-2023 06:47, Premature ventricular complexes are no longer Present Vent. rate has increased BY 34 BPM Questionable change in initial forces of Lateral leads Referred By: Lynette Tubbs Electronically Signed By:Olayinka Colunga
[2023-02-06 02:47] VITALS: BP 154/67; PULSE 85; RESP 16; TEMP 36.3; O2SAT 95
[2023-02-06 03:23] VITALS: BP 162/70; PULSE 84; RESP 14; O2SAT 94
--- NOTE | 2023-02-06 03:38 | PM.EVENT ---
Event Note Date of Service: 02/06/23 Event Note: Rapid response was called as patient was having midsternal chest discomfort. Vital stable. Oxygenating 96% on room air. Will order troponin, nitroglycerin and EKG. Time Spent With Patient Time: Total time managing care of this patient today ____ minutes.
[2023-02-06] MEDS: Nitroglycerin 0.4 MG TAB.SUBL SUBLINGUAL ×2 (03:40→03:49)
[2023-02-06 03:45] VITALS: BP 137/73; PULSE 96; RESP 20; O2SAT 95
[2023-02-06 03:55] VITALS: BP 144/68; PULSE 89; RESP 18; O2SAT 96
[2023-02-06] MEDS: Acetaminophen 1,000 MG/100 ML PIGGYBACK 16.7 MG IV (03:55)
[2023-02-06] MEDS: Isosorbide Mononitrate 60 MG TAB.ER.24H PO (04:00)
--- NOTE | 2023-02-06 04:12 | PC.NURSE ---
Around 0330 pt c/o severe chest pain, stating that she has a history of angina and she takes nitro tabs at home when she experiences chest pain. Rapid response called, Dr. Tubbs ordered nitro tabs to give PRN, EKG ordered, labs ordered. Pt given nitro tabs x2 with good response. KATELYNN Bedoya aware and ordered pt's Imdur to be given early.
[2023-02-06 04:26] LABS: Troponin-I High Sensitivity < 2.7 ng/L (<3.5-17.0)
[2023-02-06] MEDS: ondansetron HCL 4 MG/2 ML VIAL IVPUSH (04:42)
[2023-02-06 06:01] LABS: MANUAL DIFF FLAG NO
[2023-02-06 06:09] LABS: Basophils Percent Auto 0.1 % (0-2); Hematocrit 39.5 % (37.0-47.0); Hemoglobin 13.1 g/dl (12.0-16.0); Imm Gran Abs Auto 0.03 X10*3/uL (0.00-0.03); Imm Gran Pct Auto 0.3 % (0.0-0.4); Lymphocytes Percent Auto 10.5 % (20-40); Mean Corpuscular HGB Conc 33.2 g/dl (31.0-35.0); Mean Corpuscular Volume 87.6 fL (80.0-98.0); Mean Platelet Volume 9.4 fL (9.4-12.3); Monocytes Absolute Auto 0.4 X10*3/uL (0.1-1.2); Monocytes Percent Auto 4.3 % (2-11); Neutrophils Absolute Auto 8.2 x10*3/uL (2.0-8.3); Neutrophils Percent Auto 84.8 % (45-73); Platelet Count 290 X10*3/uL (160-400); Red Blood Count 4.51 X10*6/uL (4.20-5.50); Red Cell Distribution Width 12.5 % (11.0-16.0); White Blood Count 9.7 X10*3/uL (4.8-10.8)
[2023-02-06 06:18] LABS: Anion Gap 12 (12-20); Blood Urea Nitrogen 15 mg/dL (9-16); Calcium 8.6 mg/dL (8.4-10.2); Carbon Dioxide 23 mmol/L (22-29); Chloride 108 mmol/L (96-108); Creatinine Clr Calc Pharmacy 64.9; Estimated Glomerular Filt Rate > 60; Glucose Random 134 mg/dL (60-115); Potassium 4.3 mmol/L (3.3-5.1); Sodium 139 mmol/L (135-145)
[2023-02-06 07:14] VITALS: BP 146/80; PULSE 77; RESP 16; TEMP 36.6; O2SAT 96
[2023-02-06] MEDS: Acetylcysteine 10 % 400 MG/4 ML VIAL INHALE (07:55)
[2023-02-06] MEDS: Albuterol Sulfate (0.083%) 2.5 MG/3 ML VIAL.NEB INHALE (07:55)
[2023-02-06 07:57] VITALS: PULSE 89; RESP 18; O2SAT 92
[2023-02-06] MEDS: Famotidine/PF 20 MG/2 ML VIAL IVPUSH (08:05)
[2023-02-06] MEDS: lisinopriL 10 MG TABLET PO (08:09)
[2023-02-06] MEDS: amLODIPine Besylate 5 MG TABLET PO (08:09)
[2023-02-06] MEDS: Metoprolol Succinate ER 50 MG TAB.ER.24H PO (08:09)
[2023-02-06 09:11] LABS: Troponin-I High Sensitivity < 2.7 ng/L (<3.5-17.0)
--- NOTE | 2023-02-06 11:56 | MHC.CM.PN ---
pt dcdhome no skilled servceis ordered by
--- NOTE | 2023-02-06 14:34 | HO.POSTANES ---
Post Anesthesia Evaluation Post Anesthesia Evaluation Date of Service: 02/06/23 Vital Signs: Vital Signs Temp Pulse Resp BP Pulse Ox O2 Del Method O2 Flow Rate 02/06/23 07:57 89 18 02/06/23 07:14 97.8 F 77 16 146/80 H 96 Room Air 02/06/23 03:55 89 18 144/68 H 96 Nasal Cannula 2 02/06/23 03:45 96 20 137/73 95 Room Air 02/06/23 03:23 84 14 162/70 H 94 Room Air 02/06/23 02:47 97.4 F 85 16 154/67 H 95 Room Air Anesthesia: General Endotracheal-GETA Mental Status: Awake Pain Control: Satisfactory Nausea/Vomiting: None Hydration: Adequate Anesthesia-Related Issues: No Anes. Related Issues
== END 2023-02-06 09:41 | disposition home or self-care (01) | DRG 328 ==
LOC: HO.SSSA 06:02 → HO.S3 11:51
PROVIDERS: Physician Assistant Surgical; Student in an Organized Health Care Education/Training Program; Admitting Provider Surgery; PCP Internal Medicine; Visit Provider Surgery
PROC: 0BQT4ZZ Repair Diaphragm, Percutaneous Endoscopic Approach (ICD-10-PCS; principal; 2023-02-05 08:20)
DX: K44.0 Diaphragmatic hernia with obstruction, without gangrene (principal); R07.9 Chest pain, unspecified; M19.90 Unspecified osteoarthritis, unspecified site; I25.10 Atherosclerotic heart disease of native coronary artery without angina pectoris; K66.0 Peritoneal adhesions (postprocedural) (postinfection); K76.0 Fatty (change of) liver, not elsewhere classified; E66.9 Obesity, unspecified; Z68.35 Body mass index [BMI] 35.0-35.9, adult; Z88.5 Allergy status to narcotic agent; Z86.14 Personal history of Methicillin resistant Staphylococcus aureus infection; Z79.899 Other long term (current) drug therapy
CPT/HCPCS: 36415; 80048; 80053; 80061; 83036; 83525; 84443; 84484; 85014; 85018; 85025; 85610; 85730; 86140; 86850; 86900; 86901; 87635; 88304; 88305; 92950; 93005; 94640; A4649; C9088; J0131; J0330; J0690; J1100; J1170; J2250; J2370; J2405; J2795; J3010

== ENCOUNTER → 2023-02-12 09:58 | Outpatient (BNVA) | payer MEDICARE, SELFPAY | PROVIDERS: PCP Internal Medicine; Visit Provider Surgery | DX: Z98.890 Other specified postprocedural states (principal); Z87.19 Personal history of other diseases of the digestive system | CPT/HCPCS: 99212 ==

== ENCOUNTER 2023-03-12 07:25 | Emergency (ER) | payer MEDICARE, SELFPAY ==
[2023-03-12 07:33] VITALS: BP 151/73; PULSE 83; RESP 18; TEMP 36.8; O2SAT 98; BMI 34.2
[2023-03-12] MEDS: Fluorescein Sodium STRIP 1 STRIP EYE-RIGHT (08:04)
[2023-03-12] MEDS: Tetracaine HCl/PF 0.5% Oph Sol 4 ML DROPS 3 DROP EYE-RIGHT (08:05)
--- NOTE | 2023-03-12 08:11 | ED_ITS ---
HPI - Eye Problem General Chief complaint: Eye Problems Stated complaint: R eye pain Time Seen by Provider: 03/12/23 07:44 Source: patient and family (Daughter, Leana) Mode of arrival: ambulatory Limitations: no limitations History of Present Illness HPI Narrative: 77-year-old female who presents emergency department for evaluation of severe right eye pain. Patient states she woke up this morning with severe pain in her right eye. She describes the pain is a constant, stinging pain which is 10/10. She also states that she has blurred vision. She denied any other symptoms such as headache, nausea, vomiting, numbness or weakness. The patient did have a recent hiatal hernia repair 02/05/2023. She states that her doctor stopped all of her medications due to low blood pressures and she just recently restarted them. The patient is not on any blood thinners. Related Data Home Medications Medication Instructions Recorded Confirmed calcium 600 mg-D3 800 unit-mag11 1 tab PO DAILY 08/29/20 01/29/23 50 as-jsgz-wrhygv-gabi-s.borat tablet (Caltrate 600-D Plus Minerals) gabapentin 100 mg capsule 200 mg PO TID 10/10/21 01/25/23 isosorbide mononitrate 30 mg 2 tab PO DAILY 10/10/21 01/29/23 tablet,extended release 24 hr multivitamin 1 tab PO DAILY 10/10/21 01/25/23 hydrochlorothiazide 12.5 mg capsule 1 cap PO DAILY PRN BP > 140/80 03/12/22 01/29/23 lisinopril 10 mg tablet 10 mg PO DAILY 03/12/22 01/29/23 amlodipine 5 mg tablet 5 mg PO DAILY 12/13/22 01/25/23 simvastatin 20 mg tablet 20 mg PO BEDTIME 12/13/22 01/25/23 docusate sodium 100 mg capsule 100 mg PO Q OTHER DAY 01/29/23 01/29/23 (Colace) Previous Rx's Medication Instructions Recorded metoprolol succinate 50 mg 50 mg PO DAILY #90 caps 10/04/20 tablet,extended release 24 hr iron,carbonyl 65 mg-vitamin C 125 1 tab PO DAILY #30 tabs 11/11/22 mg tablet,delayed release (Vitron-C) sucralfate 100 mg/mL oral 10 ml PO BID #400 mL 02/12/23 suspension erythromycin 5 mg/gram (0.5 %) eye 0.5 inch ophthalmic (eye) TID 7 03/12/23 ointment days #3.5 grams ondansetron 4 mg disintegrating 4 mg PO Q6-8H PRN nausea and 03/12/23 tablet vomiting #14 tabs oxycodone 5 mg tablet 5 mg PO Q4H PRN pain #14 tabs 03/12/23 Allergies Allergy/AdvReac Type Severity Reaction Status Date / Time codeine [CODEINE] Allergy Intermediate RASH Verified 02/12/23 10:07 Review of Systems Review of Systems: Yes all other systems are reviewed and are negative [facility] Past Medical History Medical History Acute UTI Angina pectoris Arthritis Back pain BMI 35.0-35.9,adult CAD (coronary artery disease) Closed fracture of right hip DJD (degenerative joint disease) Dysphagia GERD (gastroesophageal reflux disease) Hiatal hernia History of MRSA infection HTN (hypertension) Hyperlipidemia Obesity On beta tone at home Paraesophageal hernia Pre-procedural examination Sleep apnea Steatosis, liver Surgical site infection Trochanteric bursitis, right hip Surgical History History of esophagogastroduodenoscopy (EGD) History of hip surgery Hx of cardiac cath (~2019) Hx of cholecystectomy Hx of hysterectomy Family History Family History Father Cancer Mother CHF (congestive heart failure) Social History Social History Household Members: Family Household Members Other:: 6 Housing: House Are you a primary acute care occupational therapist to a significant other at home: No Do you presently have visiting nurse or other home services: No Alcohol intake: never Patient Tobacco Use Status: Never used Tobacco e-Cigarette/Vaping Use: Never Used Advance Directives: Yes Advance Directives Information Provided: Yes Advance Directives on File: No Advance Directives Date on File: 10/11/21 service: No Current occupational status: retired 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 Physical Exam Vital Signs: Vital Signs: Last Vital Signs Temp 98.2 F 03/12/23 07:33 Pulse 83 03/12/23 07:33 Resp 18 03/12/23 07:33 BP 151/73 H 03/12/23 07:33 Pulse Ox 98 03/12/23 07:33 O2 Del Method Room Air 03/12/23 07:33 BMI result Body Mass Index 34.2 Blood pressure was elevated 151/73 most likely secondary to pain General: Awake, alert, female patient, she appears to be in distress secondary to her eye pain. HEENT: Head is normal cephalic and atraumatic, patient's left sclera is injected, fluorescein dye exam of the right eye revealed uptake over large area of the cornea, patient's pain improved after tetracaine drops, extraocular muscles are intact, mouth revealed moist membranes, nares normal, ears normal Neuro: Cranial nerves 2-12 intact, strength symmetric bilaterally Medications Administered Discontinued Medications Generic Name Dose Route Start Last Admin Trade Name Freq PRN Reason Stop Dose Admin Acetaminophen 975 mg 03/12/23 08:08 03/12/23 08:21 Acetaminophen 325 Mg Tablet PO 03/12/23 08:09 975 mg ONCE STA Administration Erythromycin 1 cm 03/12/23 08:22 03/12/23 08:27 Erythromycin Base 0.5% Oph Oin 1 Gm Tube EYE-RIGHT 03/12/23 08:23 1 cm ONCE ONE Administration Fluorescein Sodium 1 strip 03/12/23 07:52 03/12/23 08:04 Fluorescein Sodium Strip EYE-RIGHT 03/12/23 07:53 1 strip ONCE ONE Administration Ondansetron HCl 4 mg 03/12/23 08:22 03/12/23 08:27 Ondansetron Odt 4 Mg Tab.Rapdis TRANSLINGU 03/12/23 08:23 4 mg ONCE STA Administration Oxycodone HCl 5 mg 03/12/23 08:22 03/12/23 08:27 Oxycodone Hcl Immed Release 5 Mg Tablet PO 03/12/23 08:23 5 mg ONCE STA Administration Tetracaine HCl 3 drop 03/12/23 07:52 03/12/23 08:05 Tetracaine Hcl/Pf 0.5% Oph Kika 4 Ml Drops EYE-RIGHT 03/12/23 07:53 3 drop ONCE ONE Administration Medical Decision Making Medical Decision Making MDM Narrative: 77-year-old female who presents emergency department for evaluation of severe right eye pain with blurred vision that started when she woke up this morning. Patient's vital signs revealed an elevated blood pressure most likely caused by her pain. Patient's pain was leave by 2 drops of tetracaine to her right eye. The patient's right eye fluorescein dye exam revealed a large area of uptake over the cornea. Patient was given oxycodone 5 mg orally, Tylenol 975 mg orally, Zofran ODT 4 mg trans lingual. I did discuss the importance of close follow-up given the large amount of surface area involved with this corneal abrasion and the risk for developing corneal ulcers. The patient was referred to our other sales support worker, Dr. Melara. The patient also had an other sales support worker that did her cataract who I told her that she can also see if our other sales support worker available. Also, as another option the patient was advised to follow-up with a local optometry you can also care for corneal abrasions and refer the patient to an other sales support worker. Differential Diagnosis Differential diagnosis includes but is not limited to ocular migraine, glaucoma, corneal abrasion, ocular stroke Admission/Observation Consideration of admission/observation: Escalation of care including admission/observation considered Independent Historian Clinical information obtained from an independent historian. History obtained from or confirmed by: Other (Patient's daughter) Prescription Management I considered prescription management with: Pain Medication Chronic Conditions Patient?s care impacted by: Hypertension and Other (Coronary artery disease) Discharge Plan Discharge Clinical Impression: Corneal abrasion, right, Acute pain in right eye Patient Disposition: Home, Self-Care Instructions: Corneal Abrasion (ED) Additional Instructions: You have a large abrasion to your right cornea (the clear outer aspect of your eye) Wear dark sunglasses or by an eye cup patch to keep son on of your eye. Apply erythromycin optic ointment 3 times a day for 1 week to the right eye. Take Tylenol (acetaminophen) 500 mg pills, 2 pills every 6 hours as needed for pain. For pain not relieved byTylenol take oxycodone 5 mg pills, 1 pill every 4 hours as needed for pain. Do not drive or work while taking this medication since they can cause sleepiness. Oxycodone is a narcotic medication that can be addicting. If you are concerned about addiction you can ask the pharmacist for less pills or do not get this prescription filled. Call your other sales support worker today to make a follow-up appointment for tomorrow. Large corneal abrasion need to be closely followed by your other sales support worker to make sure you do not developed a corneal ulcer (hole in the cornea). Our ophthalmology is ill today and I am not sure how long he will be sick. If your eye doctor cannot see then call our eye doctor and if he is unavailable then go to an dictionary editor tomorrow for follow-up. There is a national chain called [facility] and hopefully they could see you without an appointment tomorrow. Prescriptions: New oxycodone 5 mg tablet 5 mg PO Q4H PRN (Reason: pain) Qty: 14 0RF Rx Instructions: Patient may request partial fill; Partial Fill upon patient request. erythromycin 5 mg/gram (0.5 %) ointment 0.5 inch ophthalmic (eye) TID 7 Days Qty: 3.5 0RF ondansetron 4 mg tablet,disintegrating 4 mg PO Q6-8H PRN (Reason: nausea and vomiting) Qty: 14 0RF No Action metoprolol succinate 50 mg tablet extended release 24 hr 50 mg PO DAILY Qty: 90 3RF Hold Instructions: Resume on 02/07/23. Check your blood pressure every e vening and send it to Dr. Cortes. Do not take the medication before you hear from Dr. Cortes. Do not take the medication if your blood pressure is below 120/70 mmHg. multivitamin Tablet 1 tab PO DAILY isosorbide mononitrate 30 mg tablet extended release 24 hr 2 tab PO DAILY gabapentin 100 mg capsule 200 mg PO TID Hold Instructions: Resume on 02/13/23. hydrochlorothiazide 12.5 mg capsule 1 cap PO DAILY PRN (Reason: BP > 140/80) Hold Instructions: Resume on 02/07/23. Check your blood pressure every evening and send it to Dr. Cortes. Do not take the medication before you hear from Dr. Cortes. Do not take the medication if your blood pressure is below 120/70 mmHg. docusate sodium [Colace] 100 mg capsule 100 mg PO Q OTHER DAY Caltrate 600-D Plus Minerals 600 mg calcium- 800 unit-50 mg tablet 1 tab PO DAILY Rx Instructions: give with meal/snack Vitron-C 65 mg iron- 125 mg tablet,delayed release (DR/EC) 1 tab PO DAILY Qty: 30 2RF Rx Instructions: swallow whole; do not chew/break/dissolve/open lisinopril 10 mg tablet 10 mg PO DAILY Hold Instructions: Resume on 02/07/23. Check your blood pressure every evening and send it to Dr. Cortes. Do not take the medication before you hear from Dr. Cortes. Do not take the medication if your blood pressure is below 120/70 mmHg. amlodipine 5 mg tablet 5 mg PO DAILY Hold Instructions: Resume on 02/07/23. Check your blood pressure every evening and send it to Dr. Cortes. Do not take the medication before you hear from Dr. Cortes. Do not take the medication if your blood pressure is below 120/70 mmHg. simvastatin 20 mg tablet 20 mg PO BEDTIME sucralfate 100 mg/mL suspension 10 ml PO BID Qty: 400 2RF Referrals: Yaron Melara [Physician] - 1 day (Large right corneal abrasion) Interventions: ED Discharge Assessment Last Done: 03/12/23 08:54 Discharge Date/Time: 03/12/23 08:56
[2023-03-12] MEDS: Acetaminophen 325 MG TABLET 975 MG PO (08:21)
[2023-03-12] MEDS: oxyCODONE HCl Immed Release 5 MG TABLET PO (08:27)
[2023-03-12] MEDS: Ondansetron ODT 4 MG TAB.RAPDIS TRANSLINGU (08:27)
[2023-03-12] MEDS: Erythromycin Base 0.5% Oph Oin 1 GM TUBE 1 CM EYE-RIGHT (08:27)
== END 2023-03-12 08:56 | disposition home or self-care (01) ==
PROVIDERS: Emergency Provider Emergency Medicine Emergency Medical Services; PCP Internal Medicine
DX: S05.01XA Injury of conjunctiva and corneal abrasion without foreign body, right eye, initial encounter (principal); X58.XXXA Exposure to other specified factors, initial encounter; H57.11 Ocular pain, right eye; I10 Essential (primary) hypertension; E78.5 Hyperlipidemia, unspecified; Y93.9 Activity, unspecified; Y92.9 Unspecified place or not applicable; Y99.9 Unspecified external cause status; Z79.899 Other long term (current) drug therapy
CPT/HCPCS: 99283; 99284

== ENCOUNTER 2023-04-19 10:10 | Outpatient (AMB) | payer MEDICARE, SELFPAY ==
--- NOTE | 2023-04-19 10:13 | MHC.OFFVISWM ---
Intake VS Expanded 04/19/23 12:23 Height 5 ft 8 in Weight 217 lb BMI 33.0 Intake Visit Reasons: TV 2.5MO PO Diaphragmatic Hernia Repair 02/05/23 Allergies codeine [CODEINE] Allergy (Intermediate, Verified 02/12/23 10:07) RASH HPI TV 2.5MO PO Diaphragmatic Hernia Repair 02/05/23 HPI Details Start time: 12.18pm, End time: 12.38pm ?I spent 15 minutes speaking with the patient on the phone plus an additional 5 minutes reviewing and updating records for a total of 20 minutes HPI Comments History of Present Illness Details Reports heartburn after dinner. Reports occasional vomiting with food, primarily dinner. Dinner is the biggest meal of the day Is doing a lunch (1/2 sandwich with fruits) and dinner at 6pm Occasionally has a piece of a protein bar Does not neasure the food portions PFSH Medical History Acute UTI Angina pectoris Arthritis Back pain BMI 35.0-35.9,adult CAD (coronary artery disease) Closed fracture of right hip DJD (degenerative joint disease) Dysphagia GERD (gastroesophageal reflux disease) Hiatal hernia History of MRSA infection HTN (hypertension) Hyperlipidemia Obesity On beta tone at home Paraesophageal hernia Pre-procedural examination Sleep apnea Steatosis, liver Surgical site infection Trochanteric bursitis, right hip Surgical History History of esophagogastroduodenoscopy (EGD) History of hip surgery Hx of cardiac cath (~2019) Hx of cholecystectomy Hx of hysterectomy Family History Father Cancer Mother CHF (congestive heart failure) Social History Household Members: Family Household Members Other:: 6 Housing: House Are you a primary group care worker to a significant other at home: No Do you presently have visiting nurse or other home services: No Alcohol intake: never Patient Tobacco Use Status: Never used Tobacco e-Cigarette/Vaping Use: Never Used Advance Directives Date on File: 10/11/21 service: No Current occupational status: retired 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 Change nutritional plan to one Orgain shake (HALF scoop in 8oz almond milk) at 6am-8am, one Zone Perfect protein bar at 9am-11am, lunch at 12pm (5 forks of any protein source (but as tender as possible) with 5 forks of cooked vegetables like cauliflower, broccoli, potatoes or avocado), Zone Perfect protein bar at 2pm-4pm, dinner at 6pm (same as lunch) and another? Orgain shake (HALF scoop in 8oz almond milk) at 8pm-10pm 2. Continue Pantoprazole and Carafate daily 3. Cut each bar in 4 pieces and eat one every 30min to last 2 hours. Make the shakes last also 2 hours each 4. If you feel full with less items, don't eat all items of the diet plan and especially the lunch or dinner 5. Update me every few days how you are doing (2) GERD (gastroesophageal reflux disease): Code(s): K21.9 - Gastro-esophageal reflux disease without esophagitis Medications: Discontinued docusate sodium 100 mg PO DAILY 30 caps 2RF K59.00 - Constipation, unspecified Telehealth Telehealth Location of provider rendering services: practice address Location of patient: address on file Patient Identification confirmed using: Name, : Yes Telehealth method: voice only Patient verbally consented to treatment: Yes Patient verbally consented to billing insurance company: Yes Patient informed of any privacy concerns related to visit: Yes Minutes spent on Phone/Video with Pt.: 20 Coding Level of Care Code Tele Est Pt Level 3 (99943) Diagnoses S/P repair of paraesophageal hernia Z98.890; Z87.19 GERD (gastroesophageal reflux disease) K21.9 Time Spent (min) 20
[2023-04-19 12:23] VITALS: BMI 33.0
== END 2023-04-19 12:39 | disposition home or self-care (01) ==
LOC: HO.HBS 10:11
PROVIDERS: PCP Internal Medicine; Visit Provider Surgery
DX: E66.3 Overweight (principal); Z68.33 Body mass index [BMI] 33.0-33.9, adult; Z87.19 Personal history of other diseases of the digestive system; K21.9 Gastro-esophageal reflux disease without esophagitis
CPT/HCPCS: 99442

== ENCOUNTER → 2023-04-19 10:10 | Outpatient (BNVA) | payer MEDICARE, SELFPAY | PROVIDERS: PCP Internal Medicine; Visit Provider Surgery ==

== ENCOUNTER 2023-05-07 13:07 | Outpatient (AMB) | payer MEDICARE, SELFPAY ==
[2023-05-07 13:25] VITALS: BP 162/80; PULSE 88; BMI 32.7
--- NOTE | 2023-05-07 13:25 | MHC.OFFVIS ---
Intake Vital Signs 05/07/23 13:25 Height 5 ft 8 in Weight 215 lb 2.738 oz BMI 32.7 BP 162/80 H Blood Pressure Location Lt brachial Position Sitting Pulse 88 Intake Visit Reasons: 4 month follow up Intake Note: Lilia presents in office as a est.patient for a 4 month follow up for constipation PT CC: pt reports having allot of gas and having small portions so pt wont vomit, pt denies any other GI Issues Extrusion Die Template Maker Required: No Accompanied by: Self / Same As Patient Allergies codeine [CODEINE] Allergy (Intermediate, Verified 05/07/23 13:26) RASH HPI 4 month follow up HPI Details LAST VISIT (1) Dysphagia: ?Code(s): R13.10 - Dysphagia, unspecified ?Qualifiers: ?Dysphagia type:?esophageal phase? Qualified Code(s):?R13.19 - Other dysphagia ?Plan: Patient continues to have dysphagia with dyspepsia.? Will change omeprazole to pantoprazole.? Patient can continue with famotidine at bedtime (2) Constipation: ?Code(s): K59.00 - Constipation, unspecified ?Qualifiers: ?Constipation type:?slow transit constipation? Qualified Code(s):?K59.01 - Slow transit constipation ?Plan: Patient reports that she does not empty her bowels completely.? Constipation with certain food.? Patient stopped taking protein shakes due to constipating effect.? Patient can start taking MiraLax and she can start taking protein shakes. (3) Diaphragmatic hernia without mention of obstruction or gangrene: ?Code(s): K44.9 - Diaphragmatic hernia without obstruction or gangrene ?Qualifiers: ?Obstruction and gangrene presence:?without obstruction or gangrene? Qualified Code(s):?K44.9 - Diaphragmatic hernia without obstruction or gangrene ?Plan: Patient will follow-up with Dr. Cortes on January 11.? I will see her in 4 months, sooner on as needed basis.? Patient is agreeable to this plan and verbalizes understanding of instructions.? She was given the opportunity to ask questions and all questions answered.? TODAY'S VISIT Patient is here today for follow-up. Patient had hernia repaired in January. Procedures performed by Dr. Cortes. Patient reports to be feeling better, however she continues to have occasional epigastric discomfort. Sometimes feels like if she does not eat small bites she feels like vomiting. Patient states that she started quite early after the surgery to eat larger than her meals and she feels like she should of weighted little longer. Patient is taking omeprazole, however she continues to have acid reflux. Patient reports dyspepsia without dysphagia or odynophagia. Patient states that she sleeps on a wedge pillow and does not go to bed after eating large meal. Patient reports that she is moving her bowels without any issues. Denies melena, hematochezia, unintentional weight loss or ribbon like stools. [facility] Medical History Acute UTI Angina pectoris Arthritis Back pain BMI 35.0-35.9,adult CAD (coronary artery disease) Closed fracture of right hip DJD (degenerative joint disease) Dysphagia GERD (gastroesophageal reflux disease) Hiatal hernia History of MRSA infection HTN (hypertension) Hyperlipidemia Obesity On beta tone at home Paraesophageal hernia Pre-procedural examination Sleep apnea Steatosis, liver Surgical site infection Trochanteric bursitis, right hip Surgical History History of esophagogastroduodenoscopy (EGD) History of hip surgery Hx of cardiac cath (~2019) Hx of cholecystectomy Hx of hysterectomy Family History Father Cancer Mother CHF (congestive heart failure) Social History Household Members: Family Household Members Other:: 6 Housing: House Are you a primary care mgr to a significant other at home: No Do you presently have visiting nurse or other home services: No Alcohol intake: never Patient Tobacco Use Status: Never used Tobacco e-Cigarette/Vaping Use: Never Used Advance Directives Date on File: 10/11/21 service: No Current occupational status: retired 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 Review of Systems Const Denies weight gain and Denies weight loss ENT Reports no additional complaints, Denies dysphagia and Denies odynophagia Card Reports no additional complaints Resp Reports no additional complaints GI Reports abdominal pain (epigastric, occasional), Denies belching, Denies melena, Reports bloating, Denies change in bowel habits, Denies dysphagia, Denies excessive flatus, Denies dyspepsia, Denies heartburn, Denies diarrhea, Denies loose stools, Denies nausea, Denies odynophagia and Denies vomiting Reports no additional complaints Musc Reports no additional complaints Neuro Reports no additional complaints Psych Reports no additional complaints Endo Reports no additional complaints Physical Exam Vital Signs: Last Vital Signs Pulse 88 05/07/23 13:25 BP 162/80 H 05/07/23 13:25 BMI result Body Mass Index 32.7 Const General: healthy appearing, no acute distress and well developed Nutritional Appearance: obese Orientation/consciousness: patient oriented x3 HEENT Head: Yes normal to inspection, Yes normocephalic and Yes atraumatic Face and sinus: Yes normal facial exam Mouth: Normal oral and palatal mucosa present Throat: Yes posterior oropharynx normal, Yes tonsils normal and Yes uvula midline Eyes General: appearance normal, both eyes and all related structures Neck Neck: Yes normal visual inspection, Yes full ROM and Yes trachea midline Thyroid: Thyroid normal Resp Effort & Inspection: normal respiratory effort, able to speak in complete sentences, no tracheal deviation and symmetric chest movement Auscultation: clear to auscultation bilaterally Cardio Rate: regular rate Heart sounds: S1 normal heart sound present and S2 normal heart sound present GI Inspection: Yes normal to inspection, No distended and Yes obesity Palpation (GI): Soft to palpation, not firm, nontender and No hepatosplenomegaly present Auscultation: normal bowel sounds General: Yes no CVA tenderness Back/Spine/Pelvis Back: no CVA tenderness Skin General skin exam: elasticity normal, turgor normal and dry skin Neuro General: patient oriented x3 Psych Appearance: grossly normal Mental Status: mental status grossly normal Speech and movement: Normal speech and movement present Assessment & Plan Assessment & Plan (1) GERD (gastroesophageal reflux disease): Code(s): K21.9 - Gastro-esophageal reflux disease without esophagitis Qualifiers: Esophagitis presence: without esophagitis Qualified Code(s): K21.9 - Gastro-esophageal reflux disease without esophagitis Plan: Will start patient on Nexium. Patient was encouraged to avoid dietary triggers in late night snacking. Staying upright for minimal 3 hours after meals discussed with patient. (2) Constipation: Code(s): K59.00 - Constipation, unspecified Qualifiers: Constipation type: slow transit constipation Qualified Code(s): K59.01 - Slow transit constipation Plan: Patient was encouraged to increase fluid intake and activity to promote better bowel motility. Patient can continue taking MiraLax on as needed basis. (3) S/P repair of paraesophageal hernia: Code(s): Z98.890 - Other specified postprocedural states; Z87.19 - Personal history of other diseases of the digestive system Plan: Patient is following up with Dr. Cortes. Encouraged to follow his recommendations and instructions on diet and advancing. I will see her in 4 months, sooner on as needed basis. Patient is agreeable to this plan and verbalizes understanding of instructions. She was given the opportunity to ask questions and all questions answered. Thank you for allowing me to participate in her care Medications: New simethicone 125 mg PO BID-QID PRN 120 caps 3RF abdominal distention esomeprazole magnesium (Nexium) 40 mg PO DAILY 30 caps 5RF K21.9 - Gastro-esophageal reflux disease without esophagitis Discontinued docusate sodium 100 mg PO DAILY 30 caps 2RF K59.00 - Constipation, unspecified Coding Level of Care Code Est Pt Level 4 (42844) Diagnoses GERD (gastroesophageal reflux disease) K21.9 Esophagitis presence: without esophagitis Constipation K59.01 Constipation type: slow transit constipation S/P repair of paraesophageal hernia Z98.890; Z87.19 Time Spent (min) 35 Comment 20 minutes spent with patient and additional 15 minutes spent reviewing her records
== END 2023-05-07 13:59 | disposition home or self-care (01) ==
PROVIDERS: PCP Internal Medicine; Visit Provider Nurse Practitioner Family
DX: K21.9 Gastro-esophageal reflux disease without esophagitis (principal); K59.01 Slow transit constipation; Z98.890 Other specified postprocedural states; Z87.19 Personal history of other diseases of the digestive system
CPT/HCPCS: 99214

== ENCOUNTER → 2023-05-07 13:07 | Outpatient (BNVA) | payer MEDICARE, SELFPAY | PROVIDERS: PCP Internal Medicine; Visit Provider Nurse Practitioner Family | DX: K21.9 Gastro-esophageal reflux disease without esophagitis (principal); K59.01 Slow transit constipation; Z87.19 Personal history of other diseases of the digestive system; Z98.890 Other specified postprocedural states | CPT/HCPCS: 99212 ==

== ENCOUNTER → 2023-05-17 08:08 | Outpatient (BNVA) | payer MEDICARE, SELFPAY | PROVIDERS: PCP Internal Medicine; Visit Provider Surgery | DX: E66.9 Obesity, unspecified (principal); Z68.33 Body mass index [BMI] 33.0-33.9, adult | CPT/HCPCS: 99212 ==

== ENCOUNTER 2023-05-17 09:41 | Outpatient (AMB) | payer MEDICARE, SELFPAY ==
--- NOTE | 2023-05-17 10:22 | MHC.OFFVISWM ---
Intake VS Expanded 05/17/23 10:29 Height 5 ft 8 in Weight 216 lb 12.8 oz BMI 33.0 BP 150/70 H Blood Pressure Location Rt brachial Blood Pressure Position Sitting Pulse 69 Pulse Source Pulse Oximeter Temp 98.4 F Temperature Source Temporal Artery Scan Pulse Oximetry 97 Oxygen Delivery Method Room Air Body Fat 83.8 Body Fat Percentage 38.7 Free Fat Mass 133.0 Muscle Mass 126.4 Visceral Mass 13.0 Water Mass 93.6 BMR 1,803 Intake Visit Reasons: TV 3.5MO PO Diaphragmatic Hernia Repair 02/05/23 Allergies codeine [CODEINE] Allergy (Intermediate, Verified 05/17/23 10:24) RASH HPI HPI Comments History of Present Illness Details Feels better. No nausea. vomiting or GERD Is doing 1/2 cup of oatmeal for breakfast, 1 cup of salad for lunch and a small piece of fish for dinner If hungry, she may have a sorbet or 1/2 yogurt as a snack PFSH Medical History Acute UTI Angina pectoris Arthritis Back pain BMI 35.0-35.9,adult CAD (coronary artery disease) Closed fracture of right hip DJD (degenerative joint disease) Dysphagia GERD (gastroesophageal reflux disease) Hiatal hernia History of MRSA infection HTN (hypertension) Hyperlipidemia Obesity On beta tone at home Paraesophageal hernia Pre-procedural examination Sleep apnea Steatosis, liver Surgical site infection Trochanteric bursitis, right hip Surgical History History of esophagogastroduodenoscopy (EGD) History of hip surgery Hx of cardiac cath (~2019) Hx of cholecystectomy Hx of hysterectomy Family History Father Cancer Mother CHF (congestive heart failure) Social History Household Members: Family Household Members Other:: 6 Housing: House Are you a primary customer care representative to a significant other at home: No Do you presently have visiting nurse or other home services: No Alcohol intake: never Patient Tobacco Use Status: Never used Tobacco e-Cigarette/Vaping Use: Never Used Advance Directives Date on File: 10/11/21 service: No Current occupational status: retired 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 Continue same nutritional plan. 2. Emphasized the importance of continuing to measure the portions of all meals not to exceed the amounts that she can tolerate but also to avoid weight gain which is a contributing factor for GERD and diaphragmatic hernias. 3. Continue Pantoprazole and Sucralfate daily 4. We will discuss with Dr. Villarreal the timing of a surveillance EGD in the future. (2) BMI 33.0-33.9,adult: Code(s): Z68.33 - Body mass index [BMI] 33.0-33.9, adult Coding Level of Care Code Est Pt Level 3 (80664) Diagnoses Obesity E66.9 BMI 33.0-33.9,adult Z68.33 Time Spent (min) 25
[2023-05-17 10:29] VITALS: BP 150/70; PULSE 69; TEMP 36.9; O2SAT 97; BMI 33.0
== END 2023-05-17 11:37 | disposition home or self-care (01) ==
PROVIDERS: PCP Internal Medicine; Visit Provider Surgery
DX: E66.9 Obesity, unspecified (principal); Z68.33 Body mass index [BMI] 33.0-33.9, adult
CPT/HCPCS: 99213

== ENCOUNTER 2023-09-06 12:44 | Outpatient (AMB) | payer MEDICARE, SELFPAY ==
--- NOTE | 2023-09-06 12:47 | MHC.OFFVIS ---
Intake Vital Signs 09/06/23 12:48 Height 5 ft 8 in Weight 209 lb BMI 31.8 BP 132/78 Blood Pressure Location Lt brachial Position Sitting Pulse 69 Intake Visit Reasons: 4 month follow up Intake Note: Patient follow up for Constipation. Patient denies any GI issues. Satellite Installation Technician Required: No Accompanied by: Daughter Allergies codeine [CODEINE] Allergy (Intermediate, Verified 09/06/23 12:47) RASH HPI 4 month follow up HPI Details LAST VISIT GERD (gastroesophageal reflux disease) Will start patient on Nexium. Patient was encouraged to avoid dietary triggers in late night snacking. Staying upright for minimal 3 hours after meals discussed with patient. Constipation Patient was encouraged to increase fluid intake and activity to promote better bowel motility. Patient can continue taking MiraLax on as needed basis. S/P repair of paraesophageal hernia Patient is following up with Dr. Cortes. Encouraged to follow his recommendations and instructions on diet and advancing. I will see her in 4 months, sooner on as needed basis. Patient is agreeable to this plan and verbalizes understanding of instructions. She was given the opportunity to ask questions and all questions answered. ? Thank you for allowing me to participate in her care Plan Medications New simethicone 125 mg PO BID-QID PRN 120 caps 3RF abdominal distention esomeprazole magnesium (Nexium) 40 mg PO DAILY 30 caps 5RF K21.9 - Gastro-esophageal reflux disease without esophagitis Discontinued docusate sodium 100 mg PO DAILY 30 caps 2RF K59.00 - Constipation, unspecified TODAY'S VISIT: Patient is here today for follow-up. Patient reports that she has been feeling better, however she still is not feeling 100%. Status post paraesophageal hernia repair. Patient states that she is able to eat better, continues to have epigastric pain. Patient also reports feeling full after meals. Patient denies any nausea or vomiting. Reports that she is moving her bowels well. Patient is accompanied by her daughter today. Patient reports occasional dyspepsia without dysphagia or odynophagia. Denies any melena, hematochezia, unintentional weight loss or ribbon like stools. PFSH Medical History Acute UTI Angina pectoris Arthritis Back pain BMI 35.0-35.9,adult CAD (coronary artery disease) Closed fracture of right hip DJD (degenerative joint disease) Dysphagia GERD (gastroesophageal reflux disease) Hiatal hernia History of MRSA infection HTN (hypertension) Hyperlipidemia Obesity On beta tone at home Paraesophageal hernia Pre-procedural examination Sleep apnea Steatosis, liver Surgical site infection Trochanteric bursitis, right hip Surgical History History of esophagogastroduodenoscopy (EGD) History of hip surgery Hx of cardiac cath (~2019) Hx of cholecystectomy Hx of hysterectomy Family History Father Cancer Mother CHF (congestive heart failure) Social History Household Members: Family Household Members Other:: 6 Housing: House Are you a primary college and career counselor to a significant other at home: No Do you presently have visiting nurse or other home services: No Alcohol intake: never Patient Tobacco Use Status: Never used Tobacco e-Cigarette/Vaping Use: Never Used Advance Directives Date on File: 10/11/21 service: No Current occupational status: retired 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 Review of Systems Const Denies weight gain and Denies weight loss ENT Reports no additional complaints, Denies dysphagia and Denies odynophagia Card Reports no additional complaints Resp Reports no additional complaints GI Reports abdominal pain (RUQ), Denies belching, Denies melena, Reports bloating, Denies change in bowel habits, Denies dysphagia, Denies excessive flatus, Denies dyspepsia, Denies heartburn, Denies diarrhea, Denies loose stools, Denies nausea, Denies odynophagia and Denies vomiting Reports no additional complaints Musc Reports no additional complaints Neuro Reports no additional complaints Psych Reports no additional complaints Endo Reports no additional complaints Physical Exam Vital Signs: Last Vital Signs Pulse 69 09/06/23 12:48 BP 132/78 09/06/23 12:48 BMI result Body Mass Index 31.8 Const General: healthy appearing, no acute distress and well developed Nutritional Appearance: obese Orientation/consciousness: patient oriented x3 HEENT Head: Yes normal to inspection, Yes normocephalic and Yes atraumatic Face and sinus: Yes normal facial exam Mouth: Normal oral and palatal mucosa present Throat: Yes posterior oropharynx normal, Yes tonsils normal and Yes uvula midline Eyes General: appearance normal, both eyes and all related structures Neck Neck: Yes normal visual inspection, Yes full ROM and Yes trachea midline Thyroid: Thyroid normal Resp Effort & Inspection: normal respiratory effort, able to speak in complete sentences, no tracheal deviation and symmetric chest movement Auscultation: clear to auscultation bilaterally Cardio Rate: regular rate GI Inspection: Yes normal to inspection, No distended and Yes obesity Palpation (GI): Soft to palpation, not firm, nontender and No hepatosplenomegaly present Auscultation: normal bowel sounds General: Yes no CVA tenderness Back/Spine/Pelvis Back: no CVA tenderness Skin General skin exam: elasticity normal, turgor normal and dry skin Neuro General: patient oriented x3 Psych Appearance: grossly normal Mental Status: mental status grossly normal Assessment & Plan Assessment & Plan (1) S/P repair of paraesophageal hernia: Code(s): Z98.890 - Other specified postprocedural states; Z87.19 - Personal history of other diseases of the digestive system (2) GERD (gastroesophageal reflux disease): Code(s): K21.9 - Gastro-esophageal reflux disease without esophagitis Qualifiers: Esophagitis presence: without esophagitis Qualified Code(s): K21.9 - Gastro-esophageal reflux disease without esophagitis (3) Constipation: Code(s): K59.00 - Constipation, unspecified Qualifiers: Constipation type: slow transit constipation Qualified Code(s): K59.01 - Slow transit constipation (4) Early satiety: Code(s): R68.81 - Early satiety (5) Postprandial epigastric pain: Code(s): R10.13 - Epigastric pain Plan Will check vitamin B12, folate, vitamin D levels. Will send patient for gastric emptying study to rule out gastroparesis. Will check transglutaminase to rule out celiac. Patient should go for upper endoscopy to further evaluate. Will discuss this next visit. Patient will return in 3 months, sooner on as needed basis. Both patient and her daughter are agreeable to plan of care and verbalizes understanding of instructions. They were given the opportunity to ask questions and all questions answered. Thank you for allowing me to participate in her care Orders: Orders Vitamin B12 and Folate 09/06/23 R19.7 - Diarrhea, unspecified Vitamin D 25-OH (D2 and D3) 09/06/23 E55.9 - Vitamin D deficiency, unspecified NM gastric emptying study 09/06/23 K44.9 - Diaphragmatic hernia without obstruction or gangrene, K21.9 - Gastro-esophageal reflux disease without esophagitis Transglutaminase Ab IgG 09/06/23 R10.9 - Unspecified abdominal pain Transglutaminase IgA 09/06/23 R10.9 - Unspecified abdominal pain Medications: Refilled sucralfate 10 mL PO BID 400 mL 2RF K21.9 - Gastro-esophageal reflux disease without esophagitis, Z98.890 - Other specified postprocedural states, Z87.19 - Personal history of other diseases of the digestive system Coding Level of Care Code Est Pt Level 4 (58473) Diagnoses S/P repair of paraesophageal hernia Z98.890; Z87.19 Gastroesophageal reflux disease without esophagitis K21.9 Esophagitis presence: without esophagitis Slow transit constipation K59.01 Constipation type: slow transit constipation Early satiety R68.81 Postprandial epigastric pain R10.13 Time Spent (min) 35 Comment 20 minutes spent with patient and additional 15 minutes spent reviewing her records
[2023-09-06 12:48] VITALS: BP 132/78; PULSE 69; BMI 31.8
== END 2023-09-06 13:31 | disposition home or self-care (01) ==
PROVIDERS: PCP Internal Medicine; Visit Provider Nurse Practitioner Family
DX: Z98.890 Other specified postprocedural states (principal); Z87.19 Personal history of other diseases of the digestive system; K21.9 Gastro-esophageal reflux disease without esophagitis; K59.01 Slow transit constipation; R68.81 Early satiety; R10.13 Epigastric pain
CPT/HCPCS: 99214

== ENCOUNTER → 2023-09-06 12:44 | Outpatient (BNVA) | payer MEDICARE, SELFPAY | PROVIDERS: PCP Internal Medicine; Visit Provider Nurse Practitioner Family | DX: K21.9 Gastro-esophageal reflux disease without esophagitis (principal); K59.01 Slow transit constipation; R68.81 Early satiety; R10.13 Epigastric pain; Z98.890 Other specified postprocedural states; Z87.19 Personal history of other diseases of the digestive system | CPT/HCPCS: 99212 ==

== ENCOUNTER → 2023-12-10 07:55 | Outpatient (REF) | payer MEDICARE, SELFPAY ==
--- NOTE | ~2023-12-10 | NM_ITS ---
EXAMINATION: WA RADIONUCLIDE SOLID FOOD GASTRIC EMPTYING 4-HOUR STUDY CLINICAL INFORMATION: Diaphragmatic hernia without obstruction or gangrene. COMPARISON: No previous gastric emptying study is available for comparison. TECHNIQUE: A standard meal consisting of 4 oz of Egg Beaters brand tagged with 1.0 mCi Tc-99m Sulfur Colloid, 8 oz water and 2 slices of toast with jelly was administered orally to the patient. Images were obtained using a dual head gamma camera in the anterior and posterior projections over of the stomach immediately post ingestion and at hourly intervals up to 4 hours post ingestion. The anterior and posterior counts at each time interval were averaged using the geometric mean and expressed as percentage of the immediate post ingestion counts. FINDINGS: There is good visualization of activity in the stomach immediately post ingestion. Only minimal activity leaves the stomach throughout the duration of the study. At the end of the study at 4 hours post ingestion most of the activity is still retained within the stomach. Retention in the stomach at each time interval was: 1 hour 95% (normal 37%-90%) 2 hours 89% (normal 30%-60%) 3 hours 88% 4 hours 78% (normal 0%-10%) WA/WA gastric emptying study IMPRESSION: Abnormal study. There is very severe retention of solid food in the stomach at 4 hours. Gastric emptying study grading per JNMT Consensus Recommendations in 2008 (https://tech.snmjournals.org/content/36/1/44) Grade 1 (mild retention): 11-20% at 4h Grade 2 (moderate retention): 21-35% at 4h Grade 3 (severe retention): 36-50% at 4h Grade 4 (very severe retention): >50% retention at 4h
== END ==
LOC: HO.NUCMED 07:55
PROVIDERS: PCP Internal Medicine; Visit Provider Nurse Practitioner Family
DX: K44.9 Diaphragmatic hernia without obstruction or gangrene (principal); K21.9 Gastro-esophageal reflux disease without esophagitis
CPT/HCPCS: 78264; A9541

== ENCOUNTER 2024-01-21 08:05 | Outpatient (AMB) | payer MEDICARE, SELFPAY ==
--- NOTE | 2024-01-21 08:25 | MHC.OFFVIS ---
Vital Signs 01/21/24 08:38 Height 5 ft 8 in Weight 217 lb BMI 33.0 BP 160/81 H Blood Pressure Location Lt brachial Position Sitting Pulse 71 Intake Visit Reasons: 3 month follow up Intake Note: Patient follow up for constipation Patient cc: abdominal bloating, gassy, daily diarrhea, acid reflex with burning sensation on and off, discomfort with urination after hernia surgery. Allergies codeine [CODEINE] Allergy (Intermediate, Verified 01/21/24 08:24) RASH HPI HPI 3 month follow up: Details: LAST VISIT: S/P repair of paraesophageal hernia GERD (gastroesophageal reflux disease) Constipation Early satiety Postprandial epigastric pain Plan Will check vitamin B12, folate, vitamin D levels. Will send patient for gastric emptying study to rule out gastroparesis. Will check transglutaminase to rule out celiac. Patient should go for upper endoscopy to further evaluate. Will discuss this next visit. Patient will return in 3 months, sooner on as needed basis. Both patient and her daughter are agreeable to plan of care and verbalizes understanding of instructions. They were given the opportunity to ask questions and all questions answered. ? Thank you for allowing me to participate in her care Orders Orders Vitamin B12 and Folate 09/06/23 R19.7 Vitamin D 25-OH (D2 and D3) 09/06/23 E55.9 NM gastric emptying study 09/06/23 K44.9, K21.9 Transglutaminase Ab IgG 09/06/23 R10.9 Transglutaminase IgA 09/06/23 R10.9 Medications Refilled sucralfate 10 mL PO BID 400 mL 2RF K21.9, Z98.890, Z87.19 TODAY'S VISIT Patient is here today and to discuss results from gastric emptying study. Patient is accompanied by her daughter. Patient reports that since last time I have seen her she continues to have postprandial epigastric discomfort. Feeling full with even small amount of food. Patient reports this dyspepsia without dysphagia or odynophagia. Postprandial epigastric pain and bloating. Patient denies any nausea or vomiting. Patient also reports abdominal pain and cramping. Patient denies melena, hematochezia, unintentional weight loss or ribbon like stools. [facility] Medical History Acute UTI Angina pectoris Arthritis Back pain BMI 35.0-35.9,adult CAD (coronary artery disease) Closed fracture of right hip DJD (degenerative joint disease) Dysphagia GERD (gastroesophageal reflux disease) Hiatal hernia History of MRSA infection HTN (hypertension) Hyperlipidemia Obesity On beta tone at home Paraesophageal hernia Pre-procedural examination Sleep apnea Steatosis, liver Surgical site infection Trochanteric bursitis, right hip Surgical History History of esophagogastroduodenoscopy (EGD) History of hip surgery Hx of cardiac cath (~2018) Hx of cholecystectomy Hx of hysterectomy Family History Father Cancer Mother CHF (congestive heart failure) Social History Household Members: Family Household Members Other:: 6 Housing: House Are you a primary patient care specialist to a significant other at home: No Do you presently have visiting nurse or other home services: No Alcohol intake: never Patient Tobacco Use Status: Never used Tobacco e-Cigarette/Vaping Use: Never Used Advance Directives Date on File: 10/11/21 service: No Current occupational status: retired 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 Review of Systems Const Denies weight gain and Denies weight loss ENT Reports no additional complaints, Denies dysphagia and Denies odynophagia Card Reports no additional complaints Resp Reports no additional complaints GI Reports abdominal pain, Denies belching, Denies melena, Reports bloating, Denies dysphagia, Denies excessive flatus, Denies dyspepsia, Reports heartburn, Denies diarrhea, Reports loose stools, Denies nausea, Denies odynophagia and Denies vomiting Musc Reports no additional complaints Neuro Reports no additional complaints Psych Reports no additional complaints Endo Reports no additional complaints Physical Exam Vital Signs: Last Vital Signs Pulse 71 01/21/24 08:38 BP 160/81 H 01/21/24 08:38 BMI result Body Mass Index 33.0 Const General: healthy appearing and no acute distress Nutritional Appearance: obese Orientation/consciousness: patient oriented x3 Resp Effort & Inspection: normal respiratory effort, able to speak in complete sentences, no tracheal deviation and symmetric chest movement Auscultation: clear to auscultation bilaterally Cardio Rate: regular rate GI Inspection: Yes normal to inspection, No distended and Yes obesity Palpation (GI): Soft to palpation, not firm, nontender and No hepatosplenomegaly present Auscultation: normal bowel sounds General: Yes no CVA tenderness Back/Spine/Pelvis Back: no CVA tenderness Skin General skin exam: elasticity normal, turgor normal and dry skin Neuro General: patient oriented x3 Psych Appearance: grossly normal Mental Status: mental status grossly normal Results Reviewed Results Reviewed: GASTRIC EMPTYING STUDY FINDINGS: There is good visualization of activity in the stomach immediately post ingestion. Only minimal activity leaves the stomach throughout the duration of the study. At the end of the study at 4 hours post ingestion most of the activity is still retained within the stomach. Retention in the stomach at each time interval was: 1 hour 95% (normal 37%-90%) 2 hours 89% (normal 30%-60%) 3 hours 88% 4 hours 78% (normal 0%-10%) GA/GA gastric emptying study IMPRESSION: Abnormal study. There is very severe retention of solid food in the stomach at 4 hours. Assessment & Plan Assessment & Plan (1) Diaphragmatic hernia without mention of obstruction or gangrene: Code(s): K44.9 - Diaphragmatic hernia without obstruction or gangrene Category: Medical Qualifiers: Obstruction and gangrene presence: without obstruction or gangrene Qualified Code(s): K44.9 - Diaphragmatic hernia without obstruction or gangrene (2) Intra-abdominal adhesions: Code(s): K66.0 - Peritoneal adhesions (postprocedural) (postinfection) Category: Medical (3) S/P repair of paraesophageal hernia: Code(s): Z98.890 - Other specified postprocedural states; Z87.19 - Personal history of other diseases of the digestive system Category: Surgical (4) Constipation: Code(s): K59.00 - Constipation, unspecified Category: Medical Qualifiers: Constipation type: slow transit constipation Qualified Code(s): K59.01 - Slow transit constipation (5) GERD (gastroesophageal reflux disease): Code(s): K21.9 - Gastro-esophageal reflux disease without esophagitis Category: Medical Qualifiers: Esophagitis presence: without esophagitis Qualified Code(s): K21.9 - Gastro-esophageal reflux disease without esophagitis (6) Steatosis, liver: Code(s): K76.0 - Fatty (change of) liver, not elsewhere classified Category: Medical (7) Gastroparesis: Code(s): K31.84 - Gastroparesis (8) Postprandial abdominal bloating: Code(s): R14.0 - Abdominal distension (gaseous) (9) Diarrhea: Code(s): R19.7 - Diarrhea, unspecified Qualifiers: Diarrhea type: functional diarrhea Qualified Code(s): K59.1 - Functional diarrhea Plan Discussed with patient diet for patient with gastroparesis. Patient will follow-up with her bariatric surgeon. Will send patient for CT scan. She does report occasional abdominal cramping. Continue sucralfate. Patient was encouraged to avoid dietary triggers after meals discussed with patient. Patient will be eating smaller meals and more often. Avoid fiber. I will see her in 3 months, sooner on as needed basis. Patient is agreeable to this plan and verbalizes understanding of instructions. She was given the opportunity to ask questions and all questions answered. Thank you for allowing me to participate in her care Orders: Orders Blood Urea Nitrogen 01/21/24 R10.11 - Right upper quadrant pain Creatinine 01/21/24 R10.11 - Right upper quadrant pain CT abdomen pelvis w IV con 01/21/24 G89.29 - Other chronic pain, K44.9 - Diaphragmatic hernia without obstruction or gangrene, K66.0 - Peritoneal adhesions (postprocedural) (postinfection), R10.84 - Generalized abdominal pain, R10.9 - Unspecified abdominal pain, Z87.19 - Personal history of other diseases of the digestive system, Z98.890 - Other specified postprocedural states Coding Level of Care Code Est Pt Level 4 (67153) Diagnoses Diaphragmatic hernia without obstruction and without gangrene K44.9 Obstruction and gangrene presence: without obstruction or gangrene Intra-abdominal adhesions K66.0 S/P repair of paraesophageal hernia Z98.890; Z87.19 Slow transit constipation K59.01 Constipation type: slow transit constipation Gastroesophageal reflux disease without esophagitis K21.9 Esophagitis presence: without esophagitis Steatosis, liver K76.0 Gastroparesis K31.84 Postprandial abdominal bloating R14.0 Functional diarrhea K59.1 Diarrhea type: functional diarrhea Time Spent (min) 40 Comment 25 minutes spent with patient and additional 15 minutes spent reviewing her records
[2024-01-21 08:38] VITALS: BP 160/81; PULSE 71; BMI 33.0
== END 2024-01-21 09:07 | disposition home or self-care (01) ==
PROVIDERS: PCP Internal Medicine; Visit Provider Nurse Practitioner Family
DX: K44.9 Diaphragmatic hernia without obstruction or gangrene (principal); K66.0 Peritoneal adhesions (postprocedural) (postinfection); Z98.890 Other specified postprocedural states; Z87.19 Personal history of other diseases of the digestive system; K59.01 Slow transit constipation; K21.9 Gastro-esophageal reflux disease without esophagitis; K76.0 Fatty (change of) liver, not elsewhere classified; K31.84 Gastroparesis; R14.0 Abdominal distension (gaseous); K59.1 Functional diarrhea
CPT/HCPCS: 99214

== ENCOUNTER → 2024-01-21 08:05 | Outpatient (BNVA) | payer MEDICARE, SELFPAY | PROVIDERS: PCP Internal Medicine; Visit Provider Nurse Practitioner Family | DX: K44.9 Diaphragmatic hernia without obstruction or gangrene (principal); K66.0 Peritoneal adhesions (postprocedural) (postinfection); Z98.890 Other specified postprocedural states; Z87.19 Personal history of other diseases of the digestive system; K59.01 Slow transit constipation; K21.9 Gastro-esophageal reflux disease without esophagitis; K76.0 Fatty (change of) liver, not elsewhere classified; K31.84 Gastroparesis; K59.1 Functional diarrhea; R14.0 Abdominal distension (gaseous) | CPT/HCPCS: 99212 ==

== ENCOUNTER 2024-01-30 08:08 | Outpatient (REF) | payer MEDICARE, SELFPAY ==
--- NOTE | ~2024-01-30 | CT_ITS ---
EXAMINATION: CT ABDOMEN AND PELVIS WITH CONTRAST CLINICAL INFORMATION: Generalized abdominal pain COMPARISON: CT scan abdomen pelvis January 30, 2023 TECHNIQUE: Multidetector volumetric images were obtained from the superior aspect of the liver through the pubic symphysis following administration 85 mL of Omnipaque 350 intravenous contrast. Oral contrast was given. Sagittal and coronal reformatted images were obtained on the technologist's workstation. Oral contrast: No This CT examination was performed using dose optimization techniques as appropriate, variously including the following: *Automated exposure control *Adjustment of mA and/or kV according to patient size (this includes techniques or standardized protocols for targeted exams where dose is matched to indication/reason for exam; i.e. extremities or head) *Use of iterative reconstruction technique DLP: 600 mGy-cm FINDINGS: LUNG BASES: The visualized lung bases are unremarkable. LIVER, GALLBLADDER, AND BILIARY TREE: The liver is normal in size, shape, and attenuation. No focal hepatic lesion or biliary ductal dilatation is present. The gallbladder is unremarkable with no evidence of radiopaque gallstones, gallbladder wall thickening, or obvious pericholecystic inflammatory changes. PANCREAS: Unremarkable. SPLEEN: Unremarkable. ADRENAL GLANDS: Unremarkable. KIDNEYS AND URETERS: Small angiomyolipoma lower pole left kidney. Small cortical cyst upper pole left kidney. Small exophytic cyst at the mid lower pole right kidney. Parapelvic cysts in the left kidney. No follow-up imaging is recommended for simple renal cyst. Duplicated left collecting system. Normal renal cortical thickness and enhancement of the cortex of both kidneys. BLADDER: Unremarkable. GASTROINTESTINAL TRACT: There are numerous diverticula of the descending and sigmoid colon. There is focal pericolonic edema and small volume of fluid consistent with a focal diverticulitis at the distal descending colon. No perforation or abscess. No bowel obstruction. There are a few scattered diverticula in the right colon as well. Moderate volume of stool in the colon. The appendix is not visualized. Small bowel loops are unremarkable. Stomach is normal. ABDOMINAL WALL: No significant hernia is appreciated. LYMPH NODES: Normal. VASCULAR: Unremarkable. PELVIC VISCERA: Status post hysterectomy. OSSEOUS STRUCTURES: Mild compression deformity superior endplate of L2. This is stable since prior study January 30, 2023. There is no acute osseous abnormality. Orthopedic compression screw in the right hip. CT/CT abdomen pelvis w IV con IMPRESSION: Focal diverticulitis of the distal descending colon. Fleischner guidelines were followed.
[2024-01-30 08:46] LABS: Blood Urea Nitrogen 20 mg/dL (9-16); Estimated Glomerular Filt Rate > 60
[2024-01-30 09:25] LABS: Folate 12.4 ng/mL (> or = 4.0); Vitamin B12 470 pg/mL (200-900)
[2024-01-30] MEDS: iohexoL 350 MG/ML 100 ML INFUS..BTL 85 ML IV (11:41)
[2024-01-30] MEDS: Barium Sulfate Oral (Berry) 450 ML ORAL.SUSP 900 ML PO (11:44)
[2024-02-03 17:14] LABS: Vitamin D 25-OH, D2 <4 ng/mL; Vitamin D 25-OH, D3 46 ng/mL; Vitamin D 25-OH, Total 46 ng/mL (30-100)
[2024-02-05 13:27] LABS: Transglutaminase Ab IgG <1.0 U/mL; Transglutaminase IgA <1.0 U/mL
== END 2024-01-30 08:09 | disposition home or self-care (01) ==
LOC: HO.CT 08:08
PROVIDERS: PCP Internal Medicine; Visit Provider Nurse Practitioner Family
DX: R19.7 Diarrhea, unspecified (principal); E55.9 Vitamin D deficiency, unspecified; R10.11 Right upper quadrant pain; R10.9 Unspecified abdominal pain; R10.84 Generalized abdominal pain; G89.29 Other chronic pain; Z98.890 Other specified postprocedural states; Z87.19 Personal history of other diseases of the digestive system; K66.0 Peritoneal adhesions (postprocedural) (postinfection); K44.9 Diaphragmatic hernia without obstruction or gangrene
CPT/HCPCS: 36415; 74177; 82306; 82565; 82607; 82746; 84520; 86364; Q9967

== ENCOUNTER 2024-04-22 08:23 | Outpatient (AMB) | payer MEDICARE, SELFPAY ==
--- NOTE | 2024-04-22 08:37 | A.OFFVIS_ITS ---
Vital Signs 04/22/24 08:38 Height 5 ft 8 in Weight 218 lb 11.177 oz BMI 33.2 BP 128/76 Blood Pressure Location Lt brachial Position Sitting Pulse 82 Pulse Source Pulse Oximeter Pulse Oximetry (%) 96 Oxygen Delivery Method Room Air Intake Visit Reasons: 3 month follow up Intake Note: Lilia presents in office today for a scheduled 3 mos FUV. CC; Pt reports that they are doing much better since their last visit. Pt does have some concerns regarding their urinary output increasing. Pt has never had similar episodes in the past and just would like to ensure that here are no immediate concerns. Meter Record Clerk Required: No Allergies codeine [CODEINE] Allergy (Intermediate, Verified 04/22/24 08:37) RASH HPI HPI 3 month follow up: Details: LAST VISIT: Diaphragmatic hernia without mention of obstruction or gangrene Intra-abdominal adhesions S/P repair of paraesophageal hernia Constipation GERD (gastroesophageal reflux disease) Steatosis, liver Gastroparesis Postprandial abdominal bloating Diarrhea Plan Discussed with patient diet for patient with gastroparesis. Patient will follow- up with her bariatric surgeon. Will send patient for CT scan. She does report occasional abdominal cramping. Continue sucralfate. Patient was encouraged to avoid dietary triggers after meals discussed with patient. Patient will be eating smaller meals and more often. Avoid fiber. I will see her in 3 months, sooner on as needed basis. Patient is agreeable to this plan and verbalizes understanding of instructions. She was given the opportunity to ask questions and all questions answered. ? Thank you for allowing me to participate in her care Orders Orders Blood Urea Nitrogen 01/21/24 R10.11 Creatinine 01/21/[address] abdomen pelvis w IV con 01/21/24 G89.29, K44.9, K66.0, R10.84, R10.9, Z87.19, Z98.890 TODAY'S VISIT: Patient is here today for follow-up. When last seen CT scan was ordered as patient was complaining of left lower and left-sided abdominal pain. Patient was found to have a focal diverticulitis of distal descending colon as well as scattered diverticulosis throughout the left side of her colon. I have spoken to patient after results received and patient was placed on Augmentin with trial of senna. Patient was reporting that she was having trouble emptying her bowels completely even though she was having bowel movements. Today patient reports that she is not having any abdominal pain. Reports that she is moving her bowels better now. Patient denies any melena, hematochezia. Admits to have occasional urinary frequency which is quite new to her. Patient denies any dyspepsia, dysphagia or odynophagia. Currently patient is taking omeprazole daily and sucralfate as needed. Patient will be sent for colonoscopy. [facility] Medical History DJD (degenerative joint disease) Steatosis, liver GERD (gastroesophageal reflux disease) Paraesophageal hernia Angina pectoris History of MRSA infection Back pain Arthritis Hiatal hernia Sleep apnea On beta tone at home Pre-procedural examination BMI 35.0-35.9,adult Obesity Dysphagia Trochanteric bursitis, right hip Surgical site infection Acute UTI Closed fracture of right hip CAD (coronary artery disease) HTN (hypertension) Hyperlipidemia Surgical History History of esophagogastroduodenoscopy (EGD) History of hip surgery Hx of cardiac cath (~2019) Hx of cholecystectomy Hx of hysterectomy Family History Father Cancer Mother CHF (congestive heart failure) Social History Household Members: Family Household Members Other:: 6 Housing: House Are you a primary workforce investment act career manager to a significant other at home: No Do you presently have visiting nurse or other home services: No Alcohol intake: never Patient Tobacco Use Status: Never used Tobacco e-Cigarette/Vaping Use: Never Used Advance Directives Date on File: 10/11/21 service: No Current occupational status: retired 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 Review of Systems Const Denies weight gain and Denies weight loss ENT Reports no additional complaints, Denies dysphagia and Denies odynophagia Card Reports no additional complaints Resp Reports no additional complaints GI Denies abdominal pain, Denies belching, Denies melena, Reports bloating (Occasional), Denies dysphagia, Denies excessive flatus, Denies dyspepsia, Denies heartburn, Denies diarrhea, Denies loose stools, Denies nausea, Denies odynophagia and Denies vomiting Reports urinary urgency Musc Reports no additional complaints Neuro Reports no additional complaints Psych Reports no additional complaints Endo Reports no additional complaints Physical Exam Vital Signs: Last Vital Signs Pulse 82 04/22/24 08:38 BP 128/76 04/22/24 08:38 Pulse Ox 96 04/22/24 08:38 Oxygen Delivery Method Room Air 04/22/24 08:38 BMI result Body Mass Index 33.2 Const General: healthy appearing and no acute distress Nutritional Appearance: obese Orientation/consciousness: patient oriented x3 Resp Effort & Inspection: normal respiratory effort, able to speak in complete sentences, no tracheal deviation and symmetric chest movement Auscultation: clear to auscultation bilaterally Cardio Rate: regular rate GI Inspection: Yes normal to inspection, No distended and Yes obesity Palpation (GI): Soft to palpation, not firm, nontender and No hepatosplenomegaly present Auscultation: normal bowel sounds General: Yes no CVA tenderness Back/Spine/Pelvis Back: no CVA tenderness Skin General skin exam: elasticity normal, turgor normal and dry skin Neuro General: patient oriented x3 Psych Appearance: grossly normal Mental Status: mental status grossly normal Results Reviewed Results Reviewed: CT OF ABDOMEN AND PELVIS 01/30/2024 FINDINGS: LUNG BASES: The visualized lung bases are unremarkable. LIVER, GALLBLADDER, AND BILIARY TREE: The liver is normal in size, shape, and attenuation. No focal hepatic lesion or biliary ductal dilatation is present. The gallbladder is unremarkable with no evidence of radiopaque gallstones, gallbladder wall thickening, or obvious pericholecystic inflammatory changes. PANCREAS: Unremarkable. SPLEEN: Unremarkable. ADRENAL GLANDS: Unremarkable. KIDNEYS AND URETERS: Small angiomyolipoma lower pole left kidney. Small cortical cyst upper pole left kidney. Small exophytic cyst at the mid lower pole right kidney. Parapelvic cysts in the left kidney. No follow-up imaging is recommended for simple renal cyst. Duplicated left collecting system. Normal renal cortical thickness and enhancement of the cortex of both kidneys. BLADDER: Unremarkable. GASTROINTESTINAL TRACT: There are numerous diverticula of the descending and sigmoid colon. There is focal pericolonic edema and small volume of fluid consistent with a focal diverticulitis at the distal descending colon. No perforation or abscess. No bowel obstruction. There are a few scattered diverticula in the right colon as well. Moderate volume of stool in the colon. The appendix is not visualized. Small bowel loops are unremarkable. Stomach is normal. ABDOMINAL WALL: No significant hernia is appreciated. LYMPH NODES: Normal. VASCULAR: Unremarkable. PELVIC VISCERA: Status post hysterectomy. OSSEOUS STRUCTURES: Mild compression deformity superior endplate of L2. This is stable since prior study January 30, 2023. There is no acute osseous abnormality. Orthopedic compression screw in the right hip. CT/CT abdomen pelvis w IV con IMPRESSION: Focal diverticulitis of the distal descending colon. Assessment & Plan Assessment & Plan (1) Diaphragmatic hernia without mention of obstruction or gangrene: Code(s): K44.9 - Diaphragmatic hernia without obstruction or gangrene Category: Medical Qualifiers: Obstruction and gangrene presence: without obstruction or gangrene Qualified Code(s): K44.9 - Diaphragmatic hernia without obstruction or gangrene (2) Intra-abdominal adhesions: Code(s): K66.0 - Peritoneal adhesions (postprocedural) (postinfection) Category: Medical (3) S/P repair of paraesophageal hernia: Code(s): Z98.890 - Other specified postprocedural states; Z87.19 - Personal history of other diseases of the digestive system Category: Medical (4) Constipation: Code(s): K59.00 - Constipation, unspecified Category: Medical Qualifiers: Constipation type: slow transit constipation Qualified Code(s): K59.01 - Slow transit constipation (5) GERD (gastroesophageal reflux disease): Code(s): K21.9 - Gastro-esophageal reflux disease without esophagitis Category: Medical Qualifiers: Esophagitis presence: without esophagitis Qualified Code(s): K21.9 - Gastro-esophageal reflux disease without esophagitis (6) Steatosis, liver: Code(s): K76.0 - Fatty (change of) liver, not elsewhere classified Category: Medical (7) Gastroparesis: Code(s): K31.84 - Gastroparesis (8) Postprandial abdominal bloating: Code(s): R14.0 - Abdominal distension (gaseous) (9) History of diverticulitis: Code(s): Z87.19 - Personal history of other diseases of the digestive system Plan Patient will continue omeprazole daily. Sucralfate at bedtime. Increase fluid intake and activity to promote better bowel motility. Patient will continue taking senna. Currently she is not having any abdominal pain, normal exam. Increase fiber intake as well. Patient will follow-up in 2 months to discuss colonoscopy. Message sent to surgical schedulers to book colonoscopy for patient. Patient is agreeable to current plan of care and verbalizes understanding of instructions. She was given the opportunity to ask questions and all questions answered. Thank you for allowing me to participate in her care Coding Level of Care Code Est Pt Level 4 (50369) Diagnoses Diaphragmatic hernia without obstruction and without gangrene K44.9 Obstruction and gangrene presence: without obstruction or gangrene Intra-abdominal adhesions K66.0 S/P repair of paraesophageal hernia Z98.890; Z87.19 Slow transit constipation K59.01 Constipation type: slow transit constipation Gastroesophageal reflux disease without esophagitis K21.9 Esophagitis presence: without esophagitis Steatosis, liver K76.0 Gastroparesis K31.84 Postprandial abdominal bloating R14.0 History of diverticulitis Z87.19 Time Spent (min) 35 Comment 20 minutes spent with patient and additional 15 minutes spent reviewing her records
[2024-04-22 08:38] VITALS: BP 128/76; PULSE 82; O2SAT 96; BMI 33.2
== END 2024-04-22 09:17 | disposition home or self-care (01) ==
PROVIDERS: PCP Internal Medicine; Visit Provider Nurse Practitioner Family
DX: K44.9 Diaphragmatic hernia without obstruction or gangrene (principal); K66.0 Peritoneal adhesions (postprocedural) (postinfection); Z98.890 Other specified postprocedural states; Z87.19 Personal history of other diseases of the digestive system; K59.01 Slow transit constipation; K21.9 Gastro-esophageal reflux disease without esophagitis; K76.0 Fatty (change of) liver, not elsewhere classified; K31.84 Gastroparesis; R14.0 Abdominal distension (gaseous)
CPT/HCPCS: 99214

== ENCOUNTER → 2024-04-22 08:23 | Outpatient (BNVA) | payer MEDICARE, SELFPAY | PROVIDERS: PCP Internal Medicine; Visit Provider Nurse Practitioner Family | DX: K21.9 Gastro-esophageal reflux disease without esophagitis (principal); R10.32 Left lower quadrant pain; Z98.890 Other specified postprocedural states | CPT/HCPCS: 99212 ==

== ENCOUNTER 2024-07-21 07:48 | Outpatient (AMB) | payer MEDICARE, SELFPAY ==
--- NOTE | 2024-07-21 08:17 | A.OFFVIS_ITS ---
Vital Signs 07/21/24 08:18 Height 5 ft 8 in Weight 218 lb 11.177 oz BMI 33.2 BP 136/72 Blood Pressure Location Rt brachial Position Sitting Pulse 50 Pulse Source Pulse Oximeter Pulse Oximetry (%) 98 Oxygen Delivery Method Room Air Intake Visit Reasons: 3 mos FUV - Discuss colo Intake Note: Relevant Flags or Indicators ? Requires [employer]? Jyothi Rodrigues presents in office today for a scheduled 3 mos FUV. CC; No recent labs, diagnostics, or med orders placed. ? Relevant GI Sx as reported per pt? None ? Hx of any recent surgeries? None [employer] Required: No Allergies codeine [CODEINE] Allergy (Intermediate, Verified 07/21/24 08:18) RASH HPI HPI 3 mos FUV - Discuss colo: Details: LAST VISIT 04/22/2024 Diaphragmatic hernia without mention of obstruction or gangrene Intra-abdominal adhesions S/P repair of paraesophageal hernia Constipation GERD (gastroesophageal reflux disease) Steatosis, liver Gastroparesis Postprandial abdominal bloating History of diverticulitis Plan Patient will continue omeprazole daily. Sucralfate at bedtime. Increase fluid intake and activity to promote better bowel motility. Patient will continue taking senna. Currently she is not having any abdominal pain, normal exam. Inc rease fiber intake as well. Patient will follow-up in 2 months to discuss colonoscopy. Message sent to surgical schedulers to book colonoscopy for patient. Patient is agreeable to current plan of care and verbalizes understanding of instructions. She was given the opportunity to ask questions and all questions answered. ? TODAY'S VISIT Patient is here today for follow-up and to discuss going for colonoscopy and how to prep. Patient reports that she has been feeling much better. She is taking senna in his moving her bowels well. Denies any postprandial abdominal pain or discomfort. Denies any dyspepsia, dysphagia or odynophagia. Patient denies any epigastric pain. Patient states that she changed her diet and eating more frequently and smaller meals. Patient reports today that she is feeling quite well. Patient denies any issues with anesthesia in the past. No history of sleep apnea. Not on any anticoagulation medication. Patient denies any cardiac or respiratory symptoms. [facility] Medical History DJD (degenerative joint disease) Steatosis, liver GERD (gastroesophageal reflux disease) Paraesophageal hernia Angina pectoris History of MRSA infection Back pain Arthritis Hiatal hernia Sleep apnea On beta tone at home Pre-procedural examination BMI 35.0-35.9,adult Obesity Dysphagia Trochanteric bursitis, right hip Surgical site infection Acute UTI Closed fracture of right hip CAD (coronary artery disease) HTN (hypertension) Hyperlipidemia Surgical History History of esophagogastroduodenoscopy (EGD) History of hip surgery Hx of cardiac cath (~2019) Hx of cholecystectomy Hx of hysterectomy Family History Father Cancer Mother CHF (congestive heart failure) Social History Household Members: Family Household Members Other:: 6 Housing: House Are you a primary school child care attendant to a significant other at home: No Do you presently have visiting nurse or other home services: No Alcohol intake: never Patient Tobacco Use Status: Never used Tobacco e-Cigarette/Vaping Use: Never Used Advance Directives Date on File: 10/11/21 service: No Current occupational status: retired 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 Review of Systems Const Denies weight gain and Denies weight loss ENT Reports no additional complaints, Denies dysphagia and Denies odynophagia Card Reports no additional complaints Resp Reports no additional complaints GI Denies abdominal pain, Denies belching, Denies melena, Denies bloating, Denies change in bowel habits, Denies dysphagia, Denies excessive flatus, Denies dyspepsia, Denies heartburn, Denies diarrhea, Denies loose stools, Denies nausea, Denies odynophagia and Denies vomiting Musc Reports no additional complaints Neuro Reports no additional complaints Psych Reports no additional complaints Endo Reports no additional complaints Physical Exam Vital Signs: Last Vital Signs Pulse 50 07/21/24 08:18 BP 136/72 07/21/24 08:18 Pulse Ox 98 07/21/24 08:18 Oxygen Delivery Method Room Air 07/21/24 08:18 BMI result Body Mass Index 33.2 Const General: healthy appearing and no acute distress Nutritional Appearance: obese Orientation/consciousness: patient oriented x3 Resp Effort & Inspection: normal respiratory effort, able to speak in complete sentences, no tracheal deviation and symmetric chest movement Auscultation: clear to auscultation bilaterally Cardio Rate: regular rate GI Inspection: Yes normal to inspection, No distended and Yes obesity Palpation (GI): Soft to palpation, not firm, nontender and No hepatosplenomegaly present Auscultation: normal bowel sounds General: Yes no CVA tenderness Back/Spine/Pelvis Back: no CVA tenderness Skin General skin exam: elasticity normal, turgor normal and dry skin Neuro General: patient oriented x3 Psych Appearance: grossly normal Mental Status: mental status grossly normal Assessment & Plan Assessment & Plan (1) S/P repair of paraesophageal hernia: Code(s): Z98.890 - Other specified postprocedural states; Z87.19 - Personal history of other diseases of the digestive system Category: Medical (2) GERD (gastroesophageal reflux disease): Code(s): K21.9 - Gastro-esophageal reflux disease without esophagitis Category: Medical Qualifiers: Esophagitis presence: without esophagitis Qualified Code(s): K21.9 - Gastro-esophageal reflux disease without esophagitis (3) Constipation: Code(s): K59.00 - Constipation, unspecified Category: Medical Qualifiers: Constipation type: slow transit constipation Qualified Code(s): K59.01 - Slow transit constipation (4) Early satiety: Code(s): R68.81 - Early satiety (5) Postprandial epigastric pain: Code(s): R10.13 - Epigastric pain (6) Screen for colon cancer: Code(s): Z12.11 - Encounter for screening for malignant neoplasm of colon Plan What to expect before during and after procedure discussed with patient. Discussed with her in detail the importance of good bowel prep and clear liquid diet. Procedure scheduled in September. Patient denies any GI concerning symptoms at this time. No issues with anesthesia in the past. Denies any cardiac or respiratory symptoms. Not on any anticoagulation medication. Patient has appointment for follow-up end of September. Patient will call our office if she will have any GI concerning symptoms. She is agreeable to this plan and verbalizes understanding of instructions. She was given the opportunity to ask questions and all questions answered. Thank you for allowing me to participate in her care Medications: New polyethylene glycol 3350 (Miralax) As directed by gastroenterology department at [facility] 238 grams PO ONCE 238 grams 0RF Z12.11 - Encounter for screening for malignant neoplasm of colon bisacodyl (Dulcolax (bisacodyl)) take 4 tabs at noon the day before your colonoscopy 20 mg (4 x 5 mg) PO ONCE 1 day 4 tabs 0RF Z12.11 - Encounter for screening for malignant neoplasm of colon Coding Level of Care Code Est Pt Level 3 (52633) Diagnoses S/P repair of paraesophageal hernia Z98.890; Z87.19 Gastroesophageal reflux disease without esophagitis K21.9 Esophagitis presence: without esophagitis Slow transit constipation K59.01 Constipation type: slow transit constipation Early satiety R68.81 Postprandial epigastric pain R10.13 Screen for colon cancer Z12.11 Time Spent (min) 30 Comment 20 minutes spent with patient and additional 10 minutes spent reviewing her records
[2024-07-21 08:18] VITALS: BP 136/72; PULSE 50; O2SAT 98; BMI 33.2
== END 2024-07-21 09:24 | disposition home or self-care (01) ==
PROVIDERS: PCP Internal Medicine; Visit Provider Nurse Practitioner Family
DX: Z98.890 Other specified postprocedural states (principal); Z87.19 Personal history of other diseases of the digestive system; K21.9 Gastro-esophageal reflux disease without esophagitis; K59.01 Slow transit constipation; R68.81 Early satiety; R10.13 Epigastric pain; Z12.11 Encounter for screening for malignant neoplasm of colon
CPT/HCPCS: 99213

== ENCOUNTER → 2024-07-21 07:48 | Outpatient (BNVA) | payer MEDICARE, SELFPAY | PROVIDERS: PCP Internal Medicine; Visit Provider Nurse Practitioner Family | DX: Z12.11 Encounter for screening for malignant neoplasm of colon (principal); K21.9 Gastro-esophageal reflux disease without esophagitis; K59.01 Slow transit constipation; R68.81 Early satiety; R10.13 Epigastric pain; Z98.890 Other specified postprocedural states; Z87.19 Personal history of other diseases of the digestive system | CPT/HCPCS: 99212 ==

== ENCOUNTER 2024-09-15 07:17 | Day surgery (SDC) | payer MEDICARE, SELFPAY ==
[2024-09-11 14:36] VITALS: BMI 33.3
--- NOTE | 2024-09-14 11:59 | P.CONAN_ITS ---
Documented by User: Linette Bey NP 09/14/24 12:03 HPI - Anesthesia Eval Consult details Narrative: 78yo F for Colonoscopy Hx nonobstructive CAD. No cardiac visit since 2021 - [facility] [place] [facility] Active Problems Active Problems: All Active Problems BMI 33.0-33.9,adult (Acute) S/P repair of paraesophageal hernia (Acute) Intra-abdominal adhesions (Acute) Constipation (Acute) Anemia (Acute) Diaphragmatic hernia without mention of obstruction or gangrene (Acute) DJD (degenerative joint disease) (Acute) Steatosis, liver (Acute) GERD (gastroesophageal reflux disease) (Acute) Paraesophageal hernia (Acute) BMI 35.0-35.9,adult (Acute) Obesity (Acute) Dysphagia (Acute) HTN (hypertension) (Acute) CAD (coronary artery disease) (Acute) Past Medical History Medical History (Updated 09/11/24 @ 14:39 by Stephanie Olson RN) DJD (degenerative joint disease) Steatosis, liver GERD (gastroesophageal reflux disease) Paraesophageal hernia Angina pectoris History of MRSA infection Back pain Arthritis Hiatal hernia Sleep apnea On beta tone at home BMI 35.0-35.9,adult Obesity Dysphagia Trochanteric bursitis, right hip Surgical site infection Acute UTI Closed fracture of right hip CAD (coronary artery disease) HTN (hypertension) Hyperlipidemia Family History Family History Father Cancer Mother CHF (congestive heart failure) Family history of problems with anesthesia: No Surgical History Surgical History (Updated 09/11/24 @ 14:26 by Stephanie Olson RN) History of repair of hiatal hernia History of esophagogastroduodenoscopy (EGD) History of hip surgery Hx of cardiac cath (~2019) Hx of cholecystectomy Hx of hysterectomy History of Problems with Anesthesia: No Social History Social History Household Members: Family Household Members Other:: 6 Housing: House Are you a primary out of school hours care worker to a significant other at home: No Do you presently have visiting nurse or other home services: No Alcohol intake: never Patient Tobacco Use Status: Never used Tobacco e-Cigarette/Vaping Use: Never Used Use of substances other than those prescribed or required for medical reasons: No Are you DNR?: No Advance Directives: No Advance Directives Information Provided: Yes Advance Directives Date on File: 10/11/21 service: No Current occupational status: retired 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 Meds Allergies Allergy/AdvReac Type Severity Reaction Status Date / Time codeine [CODEINE] Allergy Intermediate RASH Verified 09/15/24 08:01 Home Medications ?Medication ?Instructions ?Recorded ?Confirmed ?Last Taken ?Type calcium 600 mg-D3 800 unit-mag11 1 tab PO DAILY 08/29/20 09/15/24 10/10/21 History 50 gj-gkhr-yylscm-gabi-s.borat tablet (Caltrate 600-D Plus Minerals) isosorbide mononitrate 30 mg 2 tab PO DAILY 10/10/21 09/15/24 02/05/23 History tablet,extended release 24 hr lisinopril 10 mg tablet 10 mg PO DAILY 03/12/22 09/15/24 Unknown History simvastatin 10 mg tablet 10 mg PO BEDTIME 01/21/24 09/15/24 Unknown History metoprolol succinate 50 mg 50 mg PO DAILY 04/22/24 09/15/24 Unknown History tablet,extended release 24 hr omeprazole 40 mg capsule,delayed 40 mg PO DAILY 04/22/24 09/15/24 Unknown History release sennosides 8.6 mg tablet (Natural 8.6 mg PO .every other day PRN 04/22/24 09/15/24 Unknown History Senna Laxative) constipation Exam Height,Weight and Vital Signs: Height 5 ft 8 in Weight 99.337 kg Assessment and Plan Assessment Anesthesia Assessment: Chart Reviewed Final Anesthetic Review Family History of Problems with Anesthesia: No History of Problems with Anesthesia: No Documented by User: Silvio Velazquez MD 09/15/24 09:06 [facility] Past Medical History Medical History (Updated 09/11/24 @ 14:39 by Stephanie Olson RN) DJD (degenerative joint disease) Steatosis, liver GERD (gastroesophageal reflux disease) Paraesophageal hernia Angina pectoris History of MRSA infection Back pain Arthritis Hiatal hernia Sleep apnea On beta tone at home BMI 35.0-35.9,adult Obesity Dysphagia Trochanteric bursitis, right hip Surgical site infection Acute UTI Closed fracture of right hip CAD (coronary artery disease) HTN (hypertension) Hyperlipidemia Family History Family History Father Cancer Mother CHF (congestive heart failure) Surgical History Surgical History (Updated 09/11/24 @ 14:26 by Stephanie Olson RN) History of repair of hiatal hernia History of esophagogastroduodenoscopy (EGD) History of hip surgery Hx of cardiac cath (~2019) Hx of cholecystectomy Hx of hysterectomy Social History Social History Household Members: Family Household Members Other:: 6 Housing: House Are you a primary out of school hours care worker to a significant other at home: No Do you presently have visiting nurse or other home services: No Alcohol intake: never Patient Tobacco Use Status: Never used Tobacco e-Cigarette/Vaping Use: Never Used Use of substances other than those prescribed or required for medical reasons: No Are you DNR?: No Advance Directives: No Advance Directives Information Provided: Yes Advance Directives Date on File: 10/11/21 service: No Current occupational status: retired 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 Meds Allergies Allergy/AdvReac Type Severity Reaction Status Date / Time codeine [CODEINE] Allergy Intermediate RASH Verified 09/15/24 08:01 Home Medications ?Medication ?Instructions ?Recorded ?Confirmed ?Last Taken ?Type calcium 600 mg-D3 800 unit-mag11 1 tab PO DAILY 08/29/20 09/15/24 10/10/21 History 50 cm-jtxm-bmlopa-gabi-s.borat tablet (Caltrate 600-D Plus Minerals) isosorbide mononitrate 30 mg 2 tab PO DAILY 10/10/21 09/15/24 02/05/23 History tablet,extended release 24 hr lisinopril 10 mg tablet 10 mg PO DAILY 03/12/22 09/15/24 Unknown History simvastatin 10 mg tablet 10 mg PO BEDTIME 01/21/24 09/15/24 Unknown History metoprolol succinate 50 mg 50 mg PO DAILY 04/22/24 09/15/24 Unknown History tablet,extended release 24 hr omeprazole 40 mg capsule,delayed 40 mg PO DAILY 04/22/24 09/15/24 Unknown History release sennosides 8.6 mg tablet (Natural 8.6 mg PO .every other day PRN 04/22/24 09/15/24 Unknown History Senna Laxative) constipation Exam Airway Mallampati Class: III TM Dist: >3cm Neck ROM: Full Assessment and Plan Assessment Anesthesia Assessment: Anesthesia Plan Discussed Final Anesthetic Review NPO: Yes ASA Class: III Final Preanesthetic Review: No Changes in Pt Med Stat, Meds/Allgs Chart Reviewed, Consent Obtained/Reviewed and Anes Risks/Benef Reviewed Patient Risk: Intermediate Procedure Risk: Low Anesthetic Plan Anesthetic Plan: TIVA Disposition: Standard PACU
[2024-09-15 08:03] VITALS: BMI 33.4
--- NOTE | 2024-09-15 08:22 | P.HPSUR_ITS ---
Pre-Procedural Eval Section A - 24 Hr Update-Section A only Date of Service: 09/15/24 Section B - Complete if H&P > 30 days Chief Complaint: screening Relevant Family History (Specify if Yes): No Relevant Social History: None Present Medications: see Short Stay Collaborative assessment Medical History: Significant History (DJD (degenerative joint disease) Steatosis, liver GERD (gastroesophageal reflux disease) Paraesophageal hernia Angina pectoris History of MRSA infection Back pain Arthritis Hiatal hernia Sleep apnea On beta tone at home BMI 35.0-35.9,adult Obesity Dysphagia Trochanteric bursitis, right hip Surgic) History of Previous Operations: Relevant previous surgery/procedure and date(s) (History of repair of hiatal hernia History of esophagogastroduodenoscopy (EGD) History of hip surgery Hx of cardiac cath (~2019) Hx of cholecystectomy Hx of hysterectomy) Allergies: Allergies Allergy/AdvReac Type Severity Reaction Status Date / Time codeine [CODEINE] Allergy Intermediate RASH Verified 09/15/24 08:01 Review of Systems Sugical H&P ROS: Negative: Constitution, Cardiovascular, Respiratory, Neurological, Psychiatric, Hem-Onc, Allergic/Immunologic, Gastrointestinal, Genitourinary, Musculoskeletal, Integumentary, Endocrine and Eyes/Ear s/Nose/Throat Exam Surgical H&P Exam: Normal: HEENT, Normal: Heart, Normal: Lungs, Normal: Extremities, Normal: Abdomen, Normal: Skin and Normal: Neurological Plan Diagnosis/Plan: Unchanged I have reviewed the history and physical and performed a pertinent physical examination on my patient. No changes have occurred unless specified. Time Spent With Patient Time: Total time managing care of this patient today ____ minutes.
[2024-09-15] MEDS: Lactated Ringers 1,000 ML 100 ML IVCONT (08:32)
--- NOTE | 2024-09-15 09:21 | HO.OPN-COLON ---
Colonoscopy Operative Note Operative Note Date of Service: 09/15/24 Narrative: Operative Information Procedure Description: Colonoscopy Indication: screening Anesthesia: MAC COLONOSCOPY Instrument: Olympus variable stiffness pediatric scope 190L Colonoscopy Monitoring: Vital signs and clinical assessment, continuous EKG monitoring, Pulse oximetry, Carbon Dioxide monitoring and blood pressure monitoring were done throughout the procedure. Colon withdrawal time was 11 minutes. Procedure: The patient was placed in the left lateral decubitis position and pre-procedure medications were administered. After a digital rectal examination of the ano-rectum, the video colonoscope was inserted into the rectum and advanced through the colon to the cecum/TI. The colonoscope was slowly withdrawn in a retrograde panoramic fashion and the colon mucosa was carefully examined including a retroflexed view of the rectum. Findings and interventions are described below. Procedure Difficulty: easy Findings: Terminal Ileum-normal Cecum: 11-12 mm lateral spreading granular polyp raised with eleview and removed in 2 pieces with cold snare Ascending Colon: 4-6 mm sessile polyp removed with cold forceps, few tics noted Transverse Colon -normal Descending Colon:normal Sigmoid Colon: mild diverticulosis noted Rectum: Retroflexion with small internal hemorrhoids seen, grade I Anorectum - normal Intervention: cold snare and eleview injection for EMR, cold forceps polypectomy Colon preparation: [place] Bowel Preparation Scale Right colon; 2 Transverse colon: 2 Left colon; 2 (0 = Unprepared colon segment with mucosa not seen due to solid stool that cannot be cleared. 1 = Portion of mucosa of the colon segment seen, but other areas of the colon segment not well seen due to staining, residual stool and/or opaque liquid. 2 = Minor amount of residual staining, small fragments of stool and/or opaque liquid, but mucosa of colon segment seen well. 3 = Entire mucosa of colon segment seen well with no residual staining, small fragments of stool or opaque liquid) Impression and Post Procedure Diagnosis: diverticulosis colon polyps internal hemorrhoids Plan: High fiber diet leaflet Avoid straining at stool, epsom salts and sitz bath, anusol supps or cream Repeat Colonoscopy in 1-2 years due to few areas of fair prep on left or earlier if clinically indicated Above findings were reviewed with the patient and relevant handouts were provided if indicated.
[2024-09-15 09:24] VITALS: BP 153/76; PULSE 77; RESP 15; TEMP 36.1; O2SAT 96
[2024-09-15 09:41] VITALS: BP 145/87; PULSE 71; RESP 16; TEMP 36.3; O2SAT 96
== END 2024-09-15 09:54 | disposition home or self-care (01) ==
PROVIDERS: PCP Internal Medicine; Visit Provider Internal Medicine Gastroenterology
PROC: 0DJD8ZZ Inspection of Lower Intestinal Tract, Via Natural or Artificial Opening Endoscopic (ICD-10-PCS; CPT 45378; principal; 2024-09-15 09:20)
DX: Z12.11 Encounter for screening for malignant neoplasm of colon (principal); D12.0 Benign neoplasm of cecum; D12.2 Benign neoplasm of ascending colon; K57.30 Diverticulosis of large intestine without perforation or abscess without bleeding; K64.0 First degree hemorrhoids; K59.01 Slow transit constipation; K76.0 Fatty (change of) liver, not elsewhere classified; K21.9 Gastro-esophageal reflux disease without esophagitis; K46.9 Unspecified abdominal hernia without obstruction or gangrene; Z87.19 Personal history of other diseases of the digestive system; I10 Essential (primary) hypertension; I25.10 Atherosclerotic heart disease of native coronary artery without angina pectoris; I20.9 Angina pectoris, unspecified; E78.5 Hyperlipidemia, unspecified; M19.90 Unspecified osteoarthritis, unspecified site; Z86.14 Personal history of Methicillin resistant Staphylococcus aureus infection; E66.9 Obesity, unspecified; Z68.35 Body mass index [BMI] 35.0-35.9, adult; Z79.899 Other long term (current) drug therapy; Z88.5 Allergy status to narcotic agent; Z98.890 Other specified postprocedural states
CPT/HCPCS: 45385; 45380; 45381; 88305; J2003; J2704

== ENCOUNTER → 2024-09-15 07:17 | Outpatient (BNV) | payer MEDICARE, SELFPAY | PROVIDERS: PCP Internal Medicine; Visit Provider Internal Medicine Gastroenterology | DX: Z12.11 Encounter for screening for malignant neoplasm of colon (principal); K63.5 Polyp of colon; D12.2 Benign neoplasm of ascending colon; K57.30 Diverticulosis of large intestine without perforation or abscess without bleeding; K64.8 Other hemorrhoids | CPT/HCPCS: 45380; 45381; 45385 ==

== ENCOUNTER 2024-11-30 08:51 | Outpatient (AMB) | payer MEDICARE, SELFPAY ==
--- NOTE | 2024-11-30 09:03 | MHC.OFFVIS ---
Vital Signs 11/30/24 09:06 Height 5 ft 7 in Weight 221 lb BMI 34.6 BP 158/80 H Blood Pressure Location Lt brachial Position Sitting Pulse 82 Pulse Oximetry (%) 99 Oxygen Delivery Method Room Air Intake Visit Reasons: f/u pt still having issues with diet Intake Note: Patient post op follow up for Colonoscopy results. Patient cc: she was having issues with diet but now she is eating better and she denies any other GI issues. 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 Discussed with her in detail the importance of good bowel prep and clear liquid diet. Procedure scheduled in September. Patient denies any GI concerning symptoms at this time. No issues with anesthesia in the past. Denies any cardiac or respiratory symptoms. Not on any anticoagulation medication. Patient has appointment for follow-up end of September. Patient will call our office if she will have any GI concerning symptoms. She is agreeable to this plan and verbalizes understanding of instructions. She was given the opportunity to ask questions and all questions answered. ? Thank you for allowing me to participate in her care Medications New polyethylene glycol 3350 (Miralax) As directed by gastroenterology department at [facility] 238 grams PO ONCE 238 grams 0RF Z12.11 bisacodyl (Dulcolax (bisacodyl)) take 4 tabs at noon the day before your colonoscopy 20 mg (4 x 5 mg) PO ONCE 1 day 4 tabs 0RF Z12.11 COLONOSCOPY: Findings: Terminal Ileum-normal Cecum: 11-12 mm lateral spreading granular polyp raised with eleview and removed in 2 pieces with cold snare Ascending Colon: 4-6 mm sessile polyp removed with cold forceps, few tics noted Transverse Colon -normal Descending Colon:normal Sigmoid Colon: mild diverticulosis noted Rectum: Retroflexion with small internal hemorrhoids seen, grade I Anorectum - normal Intervention: cold snare and eleview injection for EMR, cold forceps polypectomy Colon preparation: Atco Bowel Preparation Scale Right colon; 2 Transverse colon: 2 Left colon; 2 (0 = Unprepared colon segment with mucosa not seen due to solid stool that cannot be cleared. 1 = Portion of mucosa of the colon segment seen, but other areas of the colon segment not well seen due to staining, residual stool and/or opaque liquid. 2 = Minor amount of residual staining, small fragments of stool and/or opaque liquid, but mucosa of colon segment seen well. 3 = Entire mucosa of colon segment seen well with no residual staining, small fragments of stool or opaque liquid) Impression and Post Procedure Diagnosis: diverticulosis colon polyps internal hemorrhoids Plan: High fiber diet leaflet Avoid straining at stool, epsom salts and sitz bath, anusol supps or cream Repeat Colonoscopy in 1-2 years due to few areas of fair prep on left or earlier if clinically indicated PATHOLOGY: Diagnosis A. Cecum, polypectomy: Fragments of sessile serrated lesion/polyp; negative for cytologic dysplasia. B. Colon, ascending, polypectomy: Fragments of tubular adenoma; negative for high-grade dysplasia or carcinoma. TODAY'S VISIT Patient is here today for follow-up and to discuss colonoscopy results. Patient denies any ill effects from the prep, anesthesia or procedure itself. Patient reports to be doing well. Change her diet to eating smaller meals and more often. Patient is following Mediterranean diet. Symptoms are suppressed currently. No longer is taking omeprazole or sucralfate. Patient reports to be moving her bowels well uses Senokot every other day to stay regular. Denies melena, hematochezia. Patient had suboptimal prep and will need to repeat colonoscopy in 1-2 years. Patient denies any other GI concerning symptoms [facility] Medical History (Updated 11/30/24 @ 09:35 by Sylvia Gorman, [employer]-) Internal hemorrhoids without complication Diverticulosis Tubular adenoma of colon DJD (degenerative joint disease) Steatosis, liver GERD (gastroesophageal reflux disease) Paraesophageal hernia Angina pectoris History of MRSA infection Back pain Arthritis Hiatal hernia Sleep apnea On beta tone at home BMI 35.0-35.9,adult Obesity Dysphagia Trochanteric bursitis, right hip Surgical site infection Acute UTI Closed fracture of right hip CAD (coronary artery disease) HTN (hypertension) Hyperlipidemia Surgical History History of repair of hiatal hernia History of esophagogastroduodenoscopy (EGD) History of hip surgery Hx of cardiac cath (~2019) Hx of cholecystectomy Hx of hysterectomy Family History Father Cancer Mother CHF (congestive heart failure) Social History Household Members: Family Household Members Other:: 6 Housing: House Are you a primary career services representative to a significant other at home: No Do you presently have visiting nurse or other home services: No Alcohol intake: never Patient Tobacco Use Status: Never used Tobacco e-Cigarette/Vaping Use: Never Used Advance Directives Date on File: 10/11/21 service: No Current occupational status: retired 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 Physical Exam Vital Signs: Last Vital Signs Pulse 82 11/30/24 09:06 BP 158/80 H 11/30/24 09:06 Pulse Ox 99 11/30/24 09:06 Oxygen Delivery Method Room Air 11/30/24 09:06 BMI result Body Mass Index 34.6 Const General: healthy appearing and no acute distress Nutritional Appearance: obese Orientation/consciousness: patient oriented x3 Resp Effort & Inspection: normal respiratory effort, able to speak in complete sentences, no tracheal deviation and symmetric chest movement Auscultation: clear to auscultation bilaterally Cardio Rate: regular rate GI Inspection: Yes normal to inspection, No distended and Yes obesity Palpation (GI): Soft to palpation, not firm, nontender and No hepatosplenomegaly present Auscultation: normal bowel sounds General: Yes no CVA tenderness Back/Spine/Pelvis Back: no CVA tenderness Skin General skin exam: elasticity normal, turgor normal and dry skin Neuro General: patient oriented x3 Psych Appearance: grossly normal Mental Status: mental status grossly normal Assessment & Plan Assessment & Plan (1) S/P repair of paraesophageal hernia: Code(s): Z98.890 - Other specified postprocedural states; Z87.19 - Personal history of other diseases of the digestive system Category: Surgical (2) Constipation: Code(s): K59.00 - Constipation, unspecified Category: Medical Qualifiers: Constipation type: slow transit constipation Qualified Code(s): K59.01 - Slow transit constipation (3) GERD (gastroesophageal reflux disease): Code(s): K21.9 - Gastro-esophageal reflux disease without esophagitis Category: Medical Qualifiers: Esophagitis presence: without esophagitis Qualified Code(s): K21.9 - Gastro-esophageal reflux disease without esophagitis Plan: Avoid dietary triggers and late night snacking, staying upright for minimum 3 hours after meals discussed patient. (4) Status post colonoscopy: Code(s): Z98.890 - Other specified postprocedural states (5) Tubular adenoma of colon: Code(s): D12.6 - Benign neoplasm of colon, unspecified Category: Medical (6) Diverticulosis: Code(s): K57.90 - Diverticulosis of intestine, part unspecified, without perforation or abscess without bleeding Category: Medical Plan: High-fiber diet (7) Internal hemorrhoids without complication: Code(s): K64.8 - Other hemorrhoids Category: Medical Plan Continue current diet. Continue senna as needed. Avoid dietary triggers and late night snacking. Patient will follow-up in 1 year to discuss going for colonoscopy. She will call our office if she will have any GI concerning symptoms. Patient is agreeable to this plan and verbalizes understanding of instructions. She was given the opportunity to ask questions and all questions answered. Thank you for allowing me to participate in her care Medications: New sennosides (Natural Senna Laxative) 8.6 mg PO .every other day PRN 60 tabs 2RF constipation K59.00 - Constipation, unspecified Discontinued sucralfate Discontinued Reason: Patient no longer taking 10 mL PO BID 400 mL 2RF K21.9 - Gastro-esophageal reflux disease without esophagitis, Z87.19 - Personal history of other diseases of the digestive system, Z98.890 - Other specified postprocedural states Coding Level of Care Code Est Pt Level 3 (07245) Diagnoses S/P repair of paraesophageal hernia Z98.890; Z87.19 Slow transit constipation K59.01 Constipation type: slow transit constipation Gastroesophageal reflux disease without esophagitis K21.9 Esophagitis presence: without esophagitis Status post colonoscopy Z98.890 Tubular adenoma of colon D12.6 Diverticulosis K57.90 Internal hemorrhoids without complication K64.8 Time Spent (min) 30 Comment Minutes spent with patient and additional 10 minutes spent reviewing her records
[2024-11-30 09:06] VITALS: BP 158/80; PULSE 82; O2SAT 99; BMI 34.6
== END 2024-11-30 09:31 | disposition home or self-care (01) ==
LOC: HO.HGI 08:52
PROVIDERS: PCP Internal Medicine; Visit Provider Nurse Practitioner Family
DX: Z98.890 Other specified postprocedural states (principal); Z87.19 Personal history of other diseases of the digestive system; K59.01 Slow transit constipation; K21.9 Gastro-esophageal reflux disease without esophagitis; D12.6 Benign neoplasm of colon, unspecified; K57.90 Diverticulosis of intestine, part unspecified, without perforation or abscess without bleeding; K64.8 Other hemorrhoids
CPT/HCPCS: 99213

== ENCOUNTER → 2024-11-30 08:51 | Outpatient (BNVA) | payer MEDICARE, SELFPAY | PROVIDERS: PCP Internal Medicine; Visit Provider Nurse Practitioner Family | DX: K21.9 Gastro-esophageal reflux disease without esophagitis (principal); K59.01 Slow transit constipation; D12.6 Benign neoplasm of colon, unspecified; K57.90 Diverticulosis of intestine, part unspecified, without perforation or abscess without bleeding; K64.8 Other hemorrhoids; Z87.19 Personal history of other diseases of the digestive system; Z98.890 Other specified postprocedural states | CPT/HCPCS: 99212 ==

== ENCOUNTER 2025-08-27 07:59 | Outpatient (REF) | payer MEDICARE, SELFPAY ==
--- NOTE | ~2025-08-27 | MR_ITS ---
EXAMINATION: MR BRAIN WITHOUT IV CONTRAST HISTORY: MILD COGNITIVE IMPAIRMENT TECHNIQUE: Sagittal T1, coronal FLAIR, and axial T1, FLAIR, T2, gradient echo, and diffusion weighted MR images of the brain were obtained. COMPARISON: There are no prior studies available for comparison. FINDINGS: The pituitary is normal in size. The cerebellar tonsils are normally located. There is mild prominence of the ventricular system and cortical sulci, consistent with atrophy. A few scattered periventricular and subcortical white matter hyperintensities are noted on the FLAIR and T2-weighted images which are nonspecific, but often seen in the setting of small vessel ischemic disease. The hippocampal formations are symmetric in size and normal in signal intensity. There is no mass effect or midline shift. No intra or extra-axial fluid collections are identified. There are no foci of restricted diffusion. Normal vascular flow voids are noted in the basilar and carotid arteries. The visualized paranasal sinuses are clear. MR/MR head/brain wo con IMPRESSION: Mild cerebral atrophy and findings consistent with small vessel ischemic disease of the white matter. No evidence of an acute infarct. Electronically signed by: Live Varela MD 08/27/2025 08:46 AM EST
--- OUTSIDE RECORDS SUMMARY | 2025-08-27 08:03 | XMS_ITS | Patient Health Record ---
Author Organization [facility] Address [address] [place] [address] Care Team Providers Care Cloth Layer Name Role Phone Blade Hussein MD Primary Care Provider Michael Cano Jr Unavailable [phone] Allergies Allergen (clinical drug ingredient) Drug/Non Drug Allergy documented on EMR Reaction Allergy Type Onset Date Status codeine Codeine Sulfate Unknown Drug Allergy A ctive Reason For Referral No Information Medications Medication SIG (Take, Route, Frequency, Duration) Notes Start Date End Date Status Toprol XL 50 MG Tablet Extended Release 24 Hour 1 tablet Orally Once a day Active Imdur 30 MG Tablet Extended Release 24 Hour 1 tablet Orally Once a day Active Lisinopril-hydroCHLOROthiazi de 20-12.5 MG Tablet 1 tablet Orally Once a day Active Simvastatin 20 MG Tablet 1 tablet in the evening Orally Once a day Active Magnesium 400 mg Capsule 1 tablet Orally Once a day Active Colyte with Flavor Packs 240 GM Solution Reconstituted As directed Orally Over the specified time.; Duration: 1 day(s) 06/10/2015 Active Caltrate 600+D 600-400 MG-UNIT Tablet 1 tablet Orally Once a day Active Aspirin Adult Low Dose 81 MG Tablet Delayed Release 1 tablet Orally Once a day Active Aleve 220 MG Tablet 1 tablet as needed Orally prn Active Social History Social History Additional Details Category Social Info Options Details Miscellaneous: Marital status: Occupation: retired 5 years Problems Problem Type SNOMED Code ICD Code Onset Dates Problem Status W/U Status Risk Notes Problem 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 of aspirin (Z79.82) Active confirmed Problem Screening for malignant neoplasm of colon (867499810) Special screening for malignant neoplasms, colon (Z12.11) Active confirmed Problem Slow transit constipation (06678042) Slow transit constipation (K59.01) Active confirmed Plan Of Treatment Future Test Test Name Order Date COLONOSCOPY 06/10/2015 Insurance Providers Payer Name Payer Address Payer Phone Subscriber Number Group Number Insured Name Patient Relationship to Insured Coverage Start Date Coverage End Date MEDICARE OF [place] [address] [place] [address] [id number] ELISA BERMUDEZ Self - patient is the insured [employer] ATT[employer] CLAIMS [address] [place] [address] [id number] ELISA BERMUDEZ Self - patient is the insured Medical (General) History Medical History History ICD Code hypertension elevated cholesterol angina degenerative joint disease environmental allergies Surgical History Surgery Date(Month/Year) hysterectomy cholecystectomy
--- OUTSIDE RECORDS SUMMARY | 2025-08-27 08:03 | XMS_ITS | Clinical Summary ---
Author Organization [facility] Address [address] [facility] [address] [place] [address] Phone Care Team Providers Care Rate Engineer Name Role Phone Blade Hussein MD Primary Care Provider Blade Hussein MD Unavailable [phone] Best Ku MD Unavailable Allergies Active Allergy Reactions Criticality Noted Date Comments Adhesive 10/23/2021 blister Alendronate GI Upset 11/04/2017 Atorvastatin Headaches,Nausea and/or Vomiting 1 10/16/2020 Codeine Rash Low 07/05/2017 Codeine Sulfate 08/28/2019 Medications nitroglycerin (NITROSTAT) 0.[address] 1 TABLET BY MOUTH UNDER THE TONGUE NEEDED FOR CHEST PAIN, MAY REPEAT EVERY 5 MINIUTES UP TO 3 DOSES, IF NO RELIEF CALL 911. 25 tablet 6 04/28/20 19 Active Additional Information Patient not taking.Reported on 07/14/2025 Ca cit-D3-mag#[id number] (CALTRATE 600+D) 600 mg calcium- 800 unit-50 mg Tab Take 1 tablet by mouth daily. 08/29/20 20 Active multivitamins capsule Take 1 capsule by mouth daily. Active lisinopril (PRINIVIL,ZESTRIL) 10 MG tabletIndications: Benign essential hypertension take one tablet by mouth every day 90 tablet 3 06/10/20 24 Active isosorbide mononitrate (IMDUR) 30 MG 24 hr tablet TAKE TWO TABLETS BY MOUTH ONCE DAILY 180 tablet 3 08/17/20 24 Active metoprolol succinate (TOPROL-XL) 50 MG 24 hr tabletIndications: ASCVD (arteriosclerotic cardiovascular disease),Benign essential hypertension TAKE ONE TABLET BY MOUTH EVERY DAY 90 tablet 3 10/23/19 25 Active senna (SENOKOT) 8.6 mg tablet Take 1 tablet by mouth every other day. Active omeprazole (PRILOSEC) 40 MG capsuleIndications :Gastroesophageal reflux disease, unspecified whether esophagitis present Take 1 capsule (40 mg total) by mouth every morning. 30 capsule 11 01/22/20 25 Active simvastatin (ZOCOR) 10 MG tablet Take 1 tablet (10 mg total) by mouth nightly at bedtime. 90 tablet 3 01/22/20 25 Active Active Problems Problem Noted Date Diagnosed Date Diaphragmatic hernia without obstruction and without gangrene 03/11/2024 Overview (03/11/2024): Was seen by ANA Dinh 01/21/24 advised to avoid trigger foods, avoid fiber, continue sucralfate advised to f/u with bariatric surgeon Coronary artery disease invo lving [place] coronary artery of [place] heart without angina pectoris 06/10/2020 Family history of cardiovascular disease 020 Tick bite of head 12/16/2017 Overview (12/16/2017): Right ear Tick bite of right ear 12/16/2017 Allergic rhinitis due to allergen 11/04/2017 Arteriosclerotic cardiovascular disease 11/05/19 18 Essential hypertension 11/04/2017 Hyperlipidemia 11/04/2017 Hypertension 11/04/2017 Insomnia 11/04/2017 Mixed hyperlipidemia 11/04/2017 Obesity 11/04/2017 Acute non-recurrent maxillary sinusitis 11/05/19 18 Resolved Problems Problem Noted Date Diagnosed Date Resolved Date Angina pectoris 11/04/2017 09/14/2019 Encounters Date Type Department Care Team Description 08/19/2025 Telephone [facility] Primary Care [facility] [address] [place] [address] Blade Hussein MD Labs 07/14/2025 10:30 AM EST Office Visit [facility] [address] [place] [address] Blade Hussein MD Right lower quadrant abdominal pain (Primary Dx); Vitamin D deficiency, unspecified; Benign essential hypertension; Impaired fasting glucose; Gastroesophageal reflux disease, unspecified whether esophagitis present; Pure hypercholesterolemia ; Mild cognitive impairment 07/14/2025 Telephone [facility] [address] [place] [address] and MRI orders 07/08/2025 Documentation [facility] [address] [place] [address] Blade Hussein MD from Last 3 Months Immunizations Immunization Administration Dates Next Due COVID-19 (Pre-06/24) Pfizer Vaccine, mRNA, PF 06/24/2021,12/08/2020,11/17/2020 Influenza High-Dose Quadriva lent Preservative Free IM 09/27/2023,08/16/2022,08/15/2021 Influenza High-Dose Trivalen t Preservative Free IM 05/22/2025,05/23/2020,06/23/2019,06/16,07/05/2017,05/20/2016,07/23/2013 Influenza Trivalent Adjuvant ed Preservative free IM 06/27/2024 Influenza, Unspecified Formulation 07/14/2010, Pneumococcal conjugate PCV13 11/02/2016 Pneumococcal polysaccharide PPSV23 11/04/2017 Td (adult) 5 Lf Tetanus Toxo id, PF, Adsorbed 10/03/2005 Td (adult),2 Lf Tetanus Toxo id, PF, Adsorbed 06/16/2018 Family History Medical History Relation Comments Cancer Father Heart disease Mother Relation Status Comments Father (Age 78) Mother (Age 72) Social History Tobacco Use Types Packs/Day Years Used Date Smoking Tobacco: Never Smokeless Tobacco: Never Tobacco Cessation:Counseling Given: Not Answered Alcohol Use Standard Drinks/Week Comments Not Currently 0 (1 standard drink = 0.6 oz pur e alcohol) Education Answer Date Recorded Are you interested in more education? Not on logan e 12/28/2022 Are you concerned about learning? Not on file 12/28/2022 No 12/28/2022 No 12/28/2022 Digital Access Answer Date Recorded No 01/24/2023 No 01/24/2023 Reliable internet access at home? Not on file 01/24/2023 Device with a working camera? Not on file Intimate Partner Violence Answer Date R ecorded Denied Basic Needs Not on file 01/21/2025 In the past 12 months have y ou been in a relationship with a person who hurts, threatens, or tries to control you? No 01/21/2025 Worried food would run out Not on file 01/21 In the past 12 months have y ou been in a relationship with a person who hurts, threatens, or tries to control you? No 01/21/2025 Comments No Sex and Gender Information Value Date Recorded Sex Assigned at Not on file Legal Sex Female 10:08 PM EDT Gender Identity Not on file Sexual Orientation Not on file Last Filed Vital Signs Vital Sign Reading Time Taken Comments Blood Pressure 104/67 07/14/2025 10:44 AM EST Pulse 53 07/14/2025 10:44 AM EST Temperature 36.6 C (97.9 F) 07/14/2025 10:44 AM EST Respiratory Rate 16 07/14/2025 10:44 AM EST Oxygen Saturation 97% 07/14/2025 10:44 AM EST Inhaled Oxygen Concentration - - Weight 100.7 kg (222 lb) 07/14/2025 10:44 AM EST Height 166.4 cm (5' 5.51 ) 07/14/2025 10:[address] Body Mass Index 36.37 07/14/2025 10:44 AM EST Plan of Treatment Upcoming Encounters Date Type Department Care Team (Late st Contact Info) Description 10/15/2025 10:00 AM EST Office Visit [facility] Primary Care [facility] [address] [place] [address] Blade Hussein MD [address] [place] [address] [email or web address] 01/26/2026 9:00 AM EDT Office Visit [facility] [address] [place] [address] Blade Hussein MD [address] [place], [place] [phone] 04/12/2026 10:40 AM EDT Office Visit [facility] [address] [place], [place] [phone] Hector Fragoso PA-C [address] [place], [place] [phone] [email or web address] Health Maintenance Due Date Last Done Comments ZOSTER VACCINES (1 of 2) 11/06/1995 FOLLOW UP BONE DENSITY TESTING 02/22/2017 02/22/2015 RSV VACCINE (1 - 1-dose 75+ series) 2020 COVID-19 VACCINE ( season) 2025 06/02/2022, 06/24/2021, 12/08/2020, Additional history exists BLOOD PRESSURE 01/11/2026 07/14/2025 DEPRESSION SCREENING 01/21/2026 01/21/2025 CREATININE LEVEL 07/14/2026 07/14/2025, , 10/15/2023, Additional history exists LIPID PANEL 07/14/2026 07/14/2025, 10/03, 10/15/2023, Additional history exists POTASSIUM LEVEL 07/14/2026 07/14/2025, 10/03, 07/02/2023, Additional history exists Adult Td,Tdap Booster 06/16/2028 06/16/2018, 006 OSTEOPOROSIS SCREENING INITIAL (ONE-TIME) Completed 02/22/2015 PNEUMOCOCCAL VACCINES (50+ years) Completed 11/04/2017, 11/02/2016 HEPATITIS C SCREENING Completed 06/10/2020, 020 INFLUENZA VACCINE Completed 05/22/2025, , 09/27/2023, Additional history exists SMOKING STATUS SCREENING (Once After 26 Yrs) Completed 07/14/2025 HEPATITIS A VACCINES Aged Out No long er eligible based on patient's age to complete this topic HIB VACCINES Aged Out No longer eligi ble based on patient's age to complete this topic MENINGOCOCCAL VACCINES (ACWY) Aged Out No longer eligible based on patient's age to complete this topic MENINGOCOCCAL VACCINES (B) Aged Out N o longer eligible based on patient's age to complete this topic Medical Devices Not on file Procedures Procedure Name Priority Date/Time Associated Diagnosis Comments CBC AND DIFFERENTIAL Routine 07/14/2025 11:58 AM EST Right lower quadrant abdominal pain C-REACTIVE PROTEIN (CRP), HIGH SENSITIVITY Routine 07/14/2025 11:58 AM EST Right lower quadrant abdominal pain HEMOGLOBIN A1C Routine 07/14/2025 11:58 AM EST Impaired fasting glucose 25-OH VITAMIN D Routine 07/14/2025 11:58 AM EST Vitamin D deficiency, unspecified VITAMIN B12 Routine 07/14/2025 11:58 AM EST Mild cognitive impairment TSH WITH REFLEX Routine 07/14/2025 11:58 AM EST Pure hypercholesterolemia LIPID PANEL Routine 07/14/2025 11:58 AM EST Pure hypercholesterolemia CBC AND DIFFERENTIAL Routine 07/14/2025 11:58 AM EST Right lower quadrant abdominal pain COMPREHENSIVE METABOLIC PANEL (CMP) Routine 07/14/2025 11:58 AM EST Right lower quadrant abdominal pain LIPASE Routine 07/14/2025 11:58 AM EST Right lower quadrant abdominal pain MRI BRAIN Routine 07/14/2025 11:55 AM EST Mild cognitive impairment CT ABDOMEN/PELVIS Routine 07/14/2025 11:50 AM EST Right lower quadrant abdominal pain HEPATITIS C ANTIBODY, QUALITATIVE Routine 06/10/2020 12:11 PM EDT Encounter for hepatitis C screening test for low risk patient OUTSIDE BONE DENSITY SCREENING Routine 02/22/2015 from Last 3 Months or Most Recently Relevant to Health Maintenance Results * C-Reactive Protein (CRP), High Sensitivity (07/14/2025 11:58 AM EST) Pathologist [facility] CRP, High Sensitivity 4.1 See comment mg/L 07/14/2025 9:23 PM [facility] Comment: Cardiovascular Risk: Low: <1.0 mg/L Average: 1.0-3.0 mg/L High: >3.0 mg/L Acute Inflammation: >10.0 mg/L Persistent elevations may represent non cardiovascular inflammation. Blood (Blood) Venipuncture / Unknown 07/14/2025 11:58 AM EST 07/14/2025 11:58 AM EST us Blade Hussein MD LAB BLOOD BKR ORDERABLES Rebecca l Result [address] [address] * Comprehensive Metabolic Panel (CMP) (07/14/2025 11:58 AM EST) [facility] Sodium 137 136 - 145 mmol/L 07/14/2025 9:23 PM [facility] Potassium 4.9 3.4 - 5.1 mmol/L 07/14/2025 9:23 PM [facility] Chloride 101 98 - 107 mmol/L 07/14/2025 9:23 PM [facility] CO2 24 20 - 31 mmol/L 07/14/2025 9:23 PM [facility] Anion Gap 12 3 - 17 mmol/L 07/14/2025 9:23 PM [facility] BUN 21 6 - 23 mg/dL 07/14/2025 9:23 PM [facility] Creatinine 0.70 0.50 - 1.00 mg/dL 07/14/2025 9:23 PM [facility] eGFR 88 >59 mL/min/1.7 3m2 07/14/2025 9:23 PM [facility] Comment:Estimated glomerular filtration rate calculated using the CKD-EPI refit equation. Glucose 96 70 - 99 mg/dL 07/14/2025 9:23 PM [facility] Calcium 9.6 8.5 - 10.5 mg/dL 07/14/2025 9:23 PM [facility] AST 22 <33 U/L 07/14/2025 9:23 PM [facility] ALT 18 <34 U/L 07/14/2025 9:23 PM [facility] Alkaline Phosphatase 101 40 - 130 U/L 07/14/2025 9:23 PM [facility] Bilirubin, Total 0.4 0.0 - 1.2 mg/dL 07/14/2025 9:23 PM [facility] Total Protein 7.6 6.4 - 8.3 g/dL 07/14/2025 9:23 PM [facility] Albumin 4.5 3.5 - 5.2 g/dL 07/14/2025 9:23 PM [facility] Globulin 3.1 1.9 - 4.1 g/dL 07/14/2025 9:23 PM [facility] Blood (Blood) Venipuncture / Unknown 07/14/2025 11:58 AM EST 07/14/2025 11:58 AM EST us Blaed Hussein MD LAB BLOOD BKR ORDERABLES Rebecca taylor Result Performing Organization Address City/State/[facility] Co de Phone Number [address] [address] * CBC and Differential (07/14/2025 11:58 AM EST) WBC 8.69 4.00 - 11.00 K/uL 07/14/2025 8:54 PM [facility] RBC 4.49 4.00 - 5.20 M/uL 07/14/2025 8:54 PM [facility] Hemoglobin 13.6 12.0 - 16.0 g/dL 07/14/2025 8:54 PM [facility] Hematocrit 41.0 36.0 - 46.0 % 07/14/2025 8:54 PM [facility] MCV 91.3 80.0 - 100.0 fL 07/14/2025 8:54 PM [facility] MCH 30.3 27.0 - 31.0 pg 07/14/2025 8:54 PM [facility] MCHC 33.2 32.0 - 36.0 g/dL 07/14/2025 8:54 PM [facility] MPV 10.2 8.4 - 12.0 fL 07/14/2025 8:54 PM [facility] RDW-CV 12.8 11.5 - 14.5 % 07/14/2025 8:54 PM [facility] PLT 312 150 - 450 K/uL 07/14/2025 8:54 PM [facility] Neutrophils 54.3 % 07/14/2025 8:54 PM [facility] Lymphocytes 35.9 % 07/14/2025 8:54 PM [facility] Monocytes 7.1 % 07/14/2025 8:54 PM [facility] Eosinophils 1.2 % 07/14/2025 8:54 PM [facility] Basophils 1.2 % 07/14/2025 8:54 PM [facility] Imm Grans 0.3 % 07/14/2025 8:54 PM [facility] NRBC 0.0 <=0.0 /100 WBCs 07/14/2025 8:54 PM [facility] Absolute Neutrophils 4.72 1.92 - 7.60 K/uL 07/14/2025 8:54 PM [facility] Absolute Lymphocytes 3.12 0.72 - 4.10 K/uL 07/14/2025 8:54 PM [facility] Absolute Monocytes 0.62 0.16 - 1.10 K/uL 07/14/2025 8:54 PM [facility] Absolute Eosinophils 0.10 0.00 - 0.50 K/uL 07/14/2025 8:54 PM [facility] Absolute Basophils 0.10 0.00 - 0.15 K/uL 07/14/2025 8:54 PM [facility] Absolute Imm Grans 0.03 0.00 - 0.09 K/uL 07/14/2025 8:54 PM [facility] Absolute NRBC 0.00 <=0.00 K cells/uL 07/14/2025 8:54 PM [facility] Absolute Neutrophils 4.72 1.92 - 7.60 K/uL 07/14/2025 8:54 PM [facility] Comment:Automated cell count . Manual ANC may differ if performed. Diff Type Auto 07/14/2025 8:54 PM [facility] Blood (Blood) Venipuncture / Unknown 07/14/2025 11:58 AM EST 07/14/2025 11:58 AM EST Blade Hussein MD LAB BLOOD BKR ORDERABLES Rebecca l Result Performing Organization Address City/[facility]/ZIP Co de Phone Number [address] [address] * Thyroid Stimulating Hormone (TSH), with Reflex (07/14/2025 11:58 AM EST) TSH 2.80 0.40 - 5.90 uIU/mL 07/14/2025 9:23 PM [facility] Blood (Blood) Venipuncture / Unknown 07/14/2025 11:58 AM EST 07/14/2025 11:58 AM EST Blade Hussein MD LAB BLOOD BKR ORDERABLES Rebecca l Result Performing Organization Address [facility] Co de Phone Number [address] [address] * 25-OH Vitamin D (07/14/2025 11:58 AM EST) 25-OH Vitamin D, Total 44 20 - 50 ng/mL 07/14/2025 9:17 PM [facility] Comment: Severe deficiency: <10 ng/mL Mild to moderate deficiency: 10-19 ng/mL Optimum levels: 20-50 ng/mL Increased risk of hypercalciuria: 51-80 ng/mL Possible toxicity: >80 ng/mL Blood (Blood) Venipuncture / Unknown 07/14/2025 11:58 AM EST 07/14/2025 11:58 AM EST us Blade Hussein MD LAB BLOOD BKR ORDERABLES Rebecca l Result [address] [address] * Lipase (07/14/2025 11:58 AM EST) [facility] Lipase 24 13 - 60 U/L 07/14/2025 9:23 PM [facility] Blood (Blood) Venipuncture / Unknown 07/14/2025 11:58 AM EST 07/14/2025 11:58 AM EST Blade Hussein MD LAB BLOOD BKR ORDERABLES Rebecca l Result Performing Organization Address [facility] Co de Phone Number [address] [address] * Hemoglobin A1c (07/14/2025 11:58 AM EST) [facility] Hemoglobin A1c 5.2 4.3 - 5.6 % 07/14/2025 9:08 PM [facility] Calculated Mean Blood Glucose 103 mg/dL 07/14/2025 9:08 PM [facility] Comment:There is no establis [facility] normal range for the Estimated Average Glucose (EAG). However, a HbA1c of 5.6% (upper limit of normal) represents an EAG of 114 mg/dL. The diagnostic HbA1c level for diabetes is greater than or equal to 6.5%, which represents an EAG greater than or equal to 140 mg/dL. Blood (Blood) Venipuncture / Unknown 07/14/2025 11:58 AM EST 07/14/2025 11:58 AM EST Blade Hussein MD LAB BLOOD BKR ORDERABLES Rebecca l Result Performing Organization Address City/[facility]/ZIP Co de Phone Number [address] [address] * Vitamin B12 (07/14/2025 11:58 AM EST) [facility] Vitamin B12 401 232 - 1,245 pg/mL 07/14/2025 9:17 PM [facility] Blood (Blood) Venipuncture / Unknown 07/14/2025 11:58 AM EST 07/14/2025 11:58 AM EST us Blade Hussein MD LAB BLOOD BKR ORDERABLES Rebecca l Result Performing Organization Address City/[facility]/ZIP Co de Phone Number [address] [address] * (ABNORMAL) Lipid Panel (07/14/2025 11:58 AM EST) Cholesterol 239(H) <200 mg/dL 07/14/2025 9:23 PM [facility] HDL 61 >=40 mg/dL 07/14/2025 9:23 PM [facility] Calculated LDL 138(H) <130 mg/dL 07/14/2025 9:23 PM [facility] Comment:LDL is calculated us ing the Mcintosh-NIH equation (GALILEA Cardiol. 2019 1;5(5):540-548). Non-HDL Cholesterol 178 mg/dL 07/14/2025 9:23 PM [facility] Comment:Guidelines suggest a non-HDL cholesterol goal 30 mg/dL higher than the patient-specific LDL cholesterol goal. Cardiac Risk Ratio 3.9 0.0 - 5.0 2024 9:23 PM [facility] Triglycerides 225(H) <=150 mg/dL 07/14/2025 9:23 PM [facility] Blood (Blood) Venipuncture / Unknown 07/14/2025 11:58 AM EST 07/14/2025 11:58 AM EST us Blade Hussein MD LAB BLOOD BKR ORDERABLES Rebecca l Result Performing Organization Address City/[facility]/ZIP Co de Phone Number [address] [address] * Hepatitis C antibody, qualitative (06/10/2020 12:11 PM EDT) HCV NON-REACTIV E NON-REACTI VE [facility] Blood 06/10/2020 12:1 1 PM EDT 06/10/2020 12:18 PM EDT us Blade Hussein MD LAB BLOOD BKR ORDERABLES Rebecca l Result [address] [address] * OUTSIDE BONE DENSITY SCREENING (02/22/2015) BONE DENSITY SCREENING - EXTERNAL osteopenia, 2 yr recall us Historical Provider HEALTH MAINTENANCE Edited Result - Final from Last 3 Months or Most Recently Relevant to Health Maintenance Insurance MEDICARE PART A & B [facility] MEDEX SUPPLEMENT MEDICARE PART A & B [employer] MEDEX SUPPLEMENT MEDICARE PART A & B [employer] MEDEX SUPPLEMENT MEDICARE PART A & B [employer] MEDEX SUPPLEMENT MEDICARE PART A & B [employer] MEDEX SUPPLEMENT MEDICARE PART A & B [facility] MEDEX SUPPLEMENT MEDICARE PART A & B [employer] MEDEX SUPPLEMENT MEDICARE PART A & B [employer] CROSS MEDEX SUPPLEMENT MEDICARE PART A & B [employer] CROSS MEDEX SUPPLEMENT Care Teams Rate Engineer Relationship Specialty Start Date End Date Blade Hussein MD [address] [place] [address] [email or web address] PCP - General 06/20/17 Blade Hussein MD [address] [place] [address] [email or web address] Insurance Assigned Provider 12/07/23 Best Ku MD [address] [place] [address] [place] [address] Cardiology 09/14/19 Additional Source Comments The information contained in this document represents components of the legal health record. It is not the complete legal health record.[facility]
--- OUTSIDE RECORDS SUMMARY | 2025-08-27 08:03 | XMS_ITS | Encounter Summary ---
Author Organization [facility] Address [address] [facility] [address] [place] [address] Phone Care Team Providers Care Solid Waste Manager Name Role Phone Blade Hussein MD Primary Care Provider [phone] Blade Hussein MD Unavailable [phone] Best Ku MD Unavailable [phone] Reason for Visit * Reason Onset Date Comments Labs 08/19/2025 Encounter Details Date Type Department Care Team (Late st Contact Info) Description 08/19/2025 Telephone [facility] [address] [place], [place] [phone] Blade Hussein MD [address] [place], [place] [phone] [email or web address] Social History Tobacco Use Types Packs/Day Years Used Date Smoking Tobacco: Never Smokeless Tobacco: Never Alcohol Use Standard Drinks/Week Comments Not Currently 0 (1 standard drink = 0.6 oz pur e alcohol) Education Answer Date Recorded Are you interested in more education? Not on loagn e 12/28/2022 Are you concerned about learning? [...] on file Sexual Orientation Not on file documented as of this encounter Progress Notes * Blade Hussein MD - 08/25/2025 4:51 PM EST Noted. * Terence Harden - 08/25/2025 10:34 AM EST Faxed new order, called to followup and patient's appt was moved up to 09/06 at 11:30 * Blade Hussein MD - 08/24/2025 11:11 PM EST Should be urgent print and ill write it in * Terence Harden - 08/24/2025 9:38 AM EST Spoke to patient and she did not choose this date they scheduled this out this far. Called over to [facility] and they said this is where they are booking for routine. No earlier cancellations. They said ifyou want it done sooner change the order to urgent and they will send it over to [place] to get it scheduled sooner. * Blade Hussein MD - 08/20/2025 7:17 PM EST Why was this booked so far out, check with patient if this was her choice. Needs to be done by September 19. * Jade Finley - 08/19/2025 9:36 AM EST Received fax from [facility] Radiology. Patient is scheduled for a CT Abdomen/Pelvis on 10/05/2025. They sent a fax (scanned into [facility]) requesting that BUN, creat, and eGFR are ordered to be completed within 30 days prior to appointment. Please advise. documented in this encounter Plan of Treatment Upcoming Encounters Date Type Department Care Team (Late st Contact Info) Description 10/15/2025 10:00 AM EST Office Visit [address] [phone] Blade Hussein MD [address] [place] [phone] 01/26/2026 9:00 AM EDT Office Visit [facility] [address] [place], [place] [phone] Blade Hussein MD [address] [place] [phone] 04/12/2026 10:40 AM EDT Office Visit [facility] [address] [place], [place] [phone] Hector Fragoso PA-C [address] [place] [address] [phone] Scheduled Orders Name Type Priority Associated Diagnoses Orde r Schedule Creatinine with Estimated Glomerular Filtration Rate (eGFR) Lab Routine Right lower quadrant abdominal pain Hypertension, unspecified type Expected: 08/20/2025, Expires: 08/20/2026 Blood Urea Nitrogen (BUN) Lab Routine Right lower quadrant abdominal pain Hypertension, unspecified type Expected: 08/20/2025, Expires: 08/20/2026 documented as of this encounter Visit Diagnoses Diagnosis Right lower quadrant abdominal pain- Primary Hypertension, unspecified type documented in this encounter Additional Health Concerns Assessment Noted Time PHQ-2 Depression Total Score: 0 01/22/20 25 11:18 AM EDT documented as of this encounter Care Teams Solid Waste Manager Relationship Specialty Start Date End Date Blade Hussein MD [address] [place] [address] PCP - General 06/20/17 Blade Hussein MD [address] [place] [address] Insurance Assigned Provider 12/07/23 Best Ku MD [address] [place] [address] [place] [phone] Cardiology 09/14/19 documented as of this encounter Additional Source Comments The information contained in this document represents components of the legal health record. It is not the complete legal health record.[facility]
== END 2025-08-27 08:00 | disposition home or self-care (01) ==
LOC: HO.MRI 07:59
PROVIDERS: PCP Internal Medicine; Visit Provider Internal Medicine
DX: G31.84 Mild cognitive impairment of uncertain or unknown etiology (principal)
CPT/HCPCS: 70551

== ENCOUNTER → 2025-08-27 08:08 | Outpatient (BNV) | payer MEDICARE, SELFPAY | PROVIDERS: PCP Internal Medicine; Visit Provider Radiology Diagnostic Radiology | DX: G31.9 Degenerative disease of nervous system, unspecified (principal) | CPT/HCPCS: 70551 ==